=== PATIENT | male | born 1935 | race Caucasian/White ===

== ENCOUNTER 2017-02-26 15:10 | Inpatient (IN) | payer OTHER, MEDICARE ==
[~2017-02-26] VITALS: Ht 172.7 cm; Wt 87.0 kg
[~2017-02-26 15:10] MED LIST: ASPI325T PO; TAB-TAB PO
[2017-02-26 15:12] VITALS: BP 126/60; PULSE 71; RESP 16; TEMP 97.7; O2SAT 94
[2017-02-26] MEDS ORDERED: HALOPERIDOL LACTATE 5 MG/ML AMP IM ONE (15:45)
[2017-02-26] MEDS ORDERED: LORazepam 2 MG/ML VIAL IM ONE (15:45)
[2017-02-26] MEDS ORDERED: SODIUM CHLORIDE 0.9% FLUSH 10 ML FLUSH IV FLUSH PRN (16:00)
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
[2017-02-26 16:32] VITALS: O2SAT 98
[2017-02-26 16:42] LABS: AUTOMATED NEUTROPHIL # 4.7 TH/MM3 (1.8-7.7); BASOPHIL # 0.1 TH/MM3 (0-0.2); BASOPHIL % 1.1 % (0.0-2.0); EOSINOPHIL # 0.8 TH/MM3 (0-0.4); EOSINOPHIL % 10.4 % (0.0-4.0); HEMO FLAGS DIFF FINAL; LYMPH % 18.3 % (9.0-44.0); LYMPHOCYTE # 1.4 TH/MM3 (1.0-4.8); MEAN CELL VOLUME 91.7 FL (80.0-100.0); MEAN CORPUSCULAR HEMOGLOBIN 30.7 PG (27.0-34.0); MEAN CORPUSCULAR HGB CONC 33.5 % (32.0-36.0); MONO % 7.6 % (0.0-8.0); NEUT % 62.6 % (16.0-70.0); PLATELET COUNT 179 TH/MM3 (150-450); RED BLOOD COUNT 4.47 MIL/MM3 (4.50-5.90); RED CELL DISTRIBUTION WIDTH 13.2 % (11.6-17.2); WHITE BLOOD COUNT 7.6 TH/MM3 (4.0-11.0)
[2017-02-26 16:50] LABS: APTT (PATIENT) 28.9 SEC (24.3-30.1); PROTHROMBIN TIME - PATIENT 10.3 SEC (9.8-11.6)
[2017-02-26 17:04] LABS: ALKALINE PHOSPHATASE 70 U/L (45-117); ALT (GPT) 28 U/L (12-78); ANION GAP 4 MEQ/L (5-15); AST (GOT) 26 U/L (15-37); BICARBONATE 28.7 MEQ/L (21.0-32.0); BLOOD UREA NITROGEN 25 MG/DL (7-18); CHLORIDE 108 MEQ/L (98-107); GLOMERULAR FILTRATION RATE 44 ML/MIN (>89); POTASSIUM 4.1 MEQ/L (3.5-5.1); SODIUM (NA) 141 MEQ/L (136-145); TOTAL BILIRUBIN ADULT 0.6 MG/DL (0.2-1.0)
[2017-02-26 17:32] LABS: CREATINE KINASE 84 U/L (39-308)
[2017-02-26] MEDS ORDERED: SODIUM CHLORID 0.9% 500 ML INJ 500 ML IV ONE (17:45)
--- NOTE | 2017-02-26 18:12 | RADRPT ---
EXAM DATE/TIME: 02/26/2017 17:53 [facility] COMPARISON: No previous studies available for comparison. INDICATIONS : Altered mental status. RADIATION DOSE: 52.13 CTDIvol (mGy) MEDICAL HISTORY : Non-responsive. SURGICAL HISTORY : Non-responsive. ENCOUNTER: Initial ACUITY: 1 day PAIN SCALE: Non-responsive LOCATION: cranial TECHNIQUE: Multiple contiguous axial images were obtained of the head. Using automated exposure control and adj ustment of the mA and/or kV according to patient size, radiation dose was kept as low as reasonably a chievable to obtain optimal diagnostic quality images. DICOM format image data is available electro nically for review and comparison. FINDINGS: CEREBRUM: The ventricles are normal for age with moderate atrophic change with sulcal and ventricular prominenc e. No evidence of midline shift, mass lesion, hemorrhage or acute infarction. No extra-axial fluid c ollections are seen. POSTERIOR FOSSA: The cerebellum and brainstem are intact. The 4th ventricle is midline. The cerebellopontine angle i s unremarkable. EXTRACRANIAL: The visualized portion of the orbits is intact. There is retention cyst in the right maxillary sinus. There is mucosal thickening in the ethmoidal air cells and left frontal sinus. SKULL: The calvaria is intact. No evidence of skull fracture. CONCLUSION: 1. Moderate atrophic change with no evidence of hemorrhage or mass effect. 2. Mild mucosal thickening in the paranasal sinuses. Inocente Tapia MD on February 26, 2017 at 18:09 Board Certified Radiologist. This report was verified electronically.
[2017-02-26 18:15] LABS: BLOOD, URINE NEG (NEG); COMMENT (UR) CULT NOT INDICATED; CULTURE IF INDICATED CULT NOT INDICATED; GLUCOSE,URINE NEG (NEG); KETONE, URINE NEG (NEG); MUCUS URINE FEW /lpf (OCC); NITRITE,URINE NEG (NEG); PH, URINE 5.5 (5.0-8.5); URINE COLOR YELLOW (YELLW/STRAW)
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
[2017-02-26] MEDS ORDERED: ALUMINUM/MAGNESIUM/SIMETH 30 ML CUP PO PRN (22:45)
[2017-02-26] MEDS ORDERED: MAGNESIUM HYDROXIDE SUSP 30 ML CUP PO PRN (22:45)
[2017-02-26 23:07] VITALS: BP 137/78
[2017-02-26 23:35] VITALS: BP 130/78; PULSE 72; RESP 16; TEMP 98.4; O2SAT 94
[2017-02-27 06:17] VITALS: BP 153/78; PULSE 71; RESP 15; TEMP 98.4; O2SAT 95
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
[2017-02-27] MEDS ORDERED: HALOPERIDOL 2 MG TAB PO PRN (11:15)
[2017-02-27] MEDS ORDERED: diphenhydrAMINE HCL 50 MG/ML VIAL IM PRN (11:15)
[2017-02-27] MEDS ORDERED: diphenhydrAMINE HCL 25 MG CAP PO PRN (11:15)
[2017-02-27] MEDS ORDERED: HALOPERIDOL LACTATE 5 MG/ML AMP IM PRN (11:15)
[2017-02-27] MEDS ORDERED: CLON0.5T PO (11:48)
[2017-02-27] MEDS ORDERED: OMEP20TA93 PO (11:48)
[2017-02-27] MEDS ORDERED: MEMA28CA PO (11:48)
[2017-02-27] MEDS ORDERED: ATOR40TA16 PO (11:48)
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
--- NOTE | 2017-02-27 12:16 | PD.PSY.CON ---
Provisional Diagnosis Admission Date Feb 26, 2017 at 22:39 [place] I. 1. 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 Deferred History of Present Illness Service Psychiatry Consult Requested By Dr. Brown Reason for Consult Second opinion Primary Care Physician Roberto Alatorre MD HPI Abdiel Rodrigues is 81 year-old male with a history of dementia who was brought to the emergency department by his family out of concern for wandering behavior and aggression. He was seen by psychiatric nurse practitioner who recommended admission to inpatient psychiatric unit. Reviewing the EMR, I see no prior psychiatric contact within our system.Patient seen and examined. Chart reviewed. Case discussed with nursing staff. On my exam, patient presents as quite confused, MMSE 4/30. He is disheveled and malodorous. Affect is blunted. He is hypoverbal with paucity of thought. He tells me that he is looking for his clothes. "I don't know what happened here. I was supposed to go to [place], but they took my clothes off." He denies issues with mood, nor can I elicit any depressive of hypomanic/manic symptoms. He denies AVH. Besides some paranoia, I can elicit no delusional material. Psychiatric interview is limited because of the patient's cognitive impairment. He offers no physical complaints.I am unable to obtain any meaningful past psychiatric, family or chemical dependency history from the patient as a consequence of his cognitive impairment. He does provide some social history, namely that he is originally from [place] and moved to the [place] "a long time ago." He is able to tell me that he is . 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 She reports that the patient has had a diagnosis of dementia for the past 2 years. He has seen a neurologist in [place] for evaluation of this problem but has been nonadherent with the medications prescribed to him. Recent problematic behaviors include wandering and even driving. A silver alert had to be called prior to patient being brought to the emergency department because the patient had driven off and could not be located. also notes that the patient has been increasingly aggressive with her in the home, trying to strike her. He also has been refusing to bathe. Family is looking for placement. Patient gets his medications filled at the [facility] on [address] in [place], and I have asked the nurse to obtain an up-to-date medication list. I have discussed the risks and benefits of ongoing inpatient psychiatric hospitalization with the patient's , who is his presumptive healthcare surrogate. I have highlighted the potential risks of hospitalization in this patient including fall, infection and other misadventure. I have discussed a planned course of treatment including initiation of a medication for the management of behavioral disturbance in the setting of his dementia. As this will likely be an atypical antipsychotic, I have reviewed with her the risks and benefits of this class of medications, highlighting the FDA black box warning for increased risk of in the demented elderly. She thanks me for the call. The patient is a 81 years old man with history of dementia, consulted to me for second opinion. Patient was found in his room, calm, superficially cooperative. Patient says that he was brought here because he wanted to go to [place] to visit his family. He says that he was in the airport trying to fly to [place]. Patient doesn't know the reason of hospitalization, he doesn't know where he is, he is completely disoriented, but reports good mood, denies depression, denies suicidal and homicidal ideation. No agitation or aggressive behavior reported or observed. Review of Systems Except as stated in HPI: all other systems reviewed are Neg Past Family Social History Coded Allergies: codeine (Unverified Allergy, Severe, nausea and vomiting, 02/26/17) Sulfa (Sulfonamide Antibiotics) (Unverified Allergy, Mild, Anaphylaxis, ) penicillin G (Unverified Allergy, Mild, Anaphylaxis, 02/26/17) Reported Medications Clonazepam (Clonazepam) 0.5 Mg Tab, 0.5 MG PO BID, #60 TAB 0 Refills 02/27/17 Atorvastatin (Atorvastatin) 40 Mg Tab, 40 MG PO HS for Cholesterol Management, # 30 TAB 0 Refills 02/27/17 Memantine Er (Namenda Xr) 28 Mg Caper, 28 MG PO DAILY for Alzheimer Disease, # 30 CAP 0 Refills 02/27/17 Omeprazole (Omeprazole) 20 Mg Tab, 20 MG PO DAILY, #30 TAB 0 Refills 02/27/17 Current Medications Medications (Trade) Dose Ordered Sig/Conor Route Start Time Stop Time Status Last Admin (NS Flush) 2 ml UNSCH PRN IV FLUSH 02/26/17 16:00 (Tylenol) 650 mg Q4H PRN PO 02/26/17 22:45 (Milk Of Magnesia Liq) 30 ml DAILY PRN PO 02/26/17 22:45 (Mag-Al Plus Susp Liq) 30 ml Q6H PRN PO 02/26/17 22:45 (Haldol Inj) 2 mg Q8H PRN IM 02/27/17 11:15 (Haldol) 2 mg Q8H PRN PO 02/27/17 11:15 (Benadryl) 25 mg Q6H PRN PO 02/27/17 11:15 (Benadryl Inj) 25 mg Q6H PRN IM 02/27/17 11:15 (Melatonin) 5 mg HS PRN PO 02/27/17 21:00 Patient's Strengths (min. 2) In a monitored setting. Supportive . Physical Exam Vital Signs Vital Signs Date Time Temp Pulse Resp B/P (MAP) Pulse Ox O2 Delivery O2 Flow Rate FiO2 02/27/17 06:17 98.4 71 15 153/78 (103) 95 02/26/17 16:32 Room Air I/O 02/27/17 02/27/17 02/28/17 08:00 16:00 00:00 Intake Total 240 ml Balance 240 ml Lab Results Test 02/26/17 16:10 02/26/17 17:30 White Blood Count 7.6 TH/MM3 Red Blood Count 4.47 MIL/MM3 Hemoglobin 13.7 GM/DL Hematocrit 41.0 % Mean Corpuscular Volume 91.7 FL Mean Corpuscular Hemoglobin 30.7 PG Mean Corpuscular Hemoglobin Concent 33.5 % Red Cell Distribution Width 13.2 % Platelet Count 179 TH/MM3 Mean Platelet Volume 6.9 FL Neutrophils (%) (Auto) 62.6 % Lymphocytes (%) (Auto) 18.3 % Monocytes (%) (Auto) 7.6 % Eosinophils (%) (Auto) 10.4 % Basophils (%) (Auto) 1.1 % Neutrophils # (Auto) 4.7 TH/MM3 Lymphocytes # (Auto) 1.4 TH/MM3 Monocytes # (Auto) 0.6 TH/MM3 Eosinophils # (Auto) 0.8 TH/MM3 Basophils # (Auto) 0.1 TH/MM3 CBC Comment DIFF FINAL Differential Comment Prothrombin Time 10.3 SEC Prothromb Time International Ratio 1.0 RATIO Activated Partial Thromboplast Time 28.9 SEC Blood Urea Nitrogen 25 MG/DL Creatinine 1.52 MG/DL Random Glucose 81 MG/DL Total Protein 7.7 GM/DL Albumin 3.7 GM/DL Calcium Level 8.5 MG/DL Alkaline Phosphatase 70 U/L Aspartate Amino Transf (AST/SGOT) 26 U/L Alanine Aminotransferase (ALT/SGPT) 28 U/L Total Bilirubin 0.6 MG/DL Sodium Level 141 MEQ/L Potassium Level 4.1 MEQ/L Chloride Level 108 MEQ/L Carbon Dioxide Level 28.7 MEQ/L Anion Gap 4 MEQ/L Estimat Glomerular Filtration Rate 44 ML/MIN Ammonia 32 MCMOL/L Total Creatine Kinase 84 U/L Troponin I LESS THAN 0.02 NG/ML Urine Color YELLOW Urine Turbidity CLEAR Urine pH 5.5 Urine Specific Compton 1.029 Urine Protein TRACE mg/dL Urine Glucose (UA) NEG mg/dL Urine Ketones NEG mg/dL Urine Occult Blood NEG Urine Nitrite NEG Urine Bilirubin NEG Urine Urobilinogen LESS THAN 2.0 MG/DL Urine Leukocyte Esterase NEG Urine RBC 1 /hpf Urine WBC 1 /hpf Urine Mucus FEW /lpf Microscopic Urinalysis Comment CULT NOT INDICATED Mental Status Examination Appearance: Disheveled, Malodorous Consciousness: Alert Orientation: Person Motor Activity: Other (no motor abnormalities noted) Speech: Slow, Other (hypoverbal) Language: Adequate Fund of Knowledge: Inadequate Attention and Concentration: Inadequate Memory: Impaired Mood: Other (mildly dysphoric) Affect: Blunt Thought Process & Associations: Other (slowed) Thought Content: Other (paucity of thought) Hallucination Type: None Delusion Type: Paranoid Suicidal Ideation: No (unreliable to contract for safety) Homicidal Ideation: No (unreliable to contract for safety) Insight: Poor Judgment: Poor Assessment & Plan Problem List: (1) Dementia ICD Codes: F03.90 - Unspecified dementia without behavioral disturbance Assessment & Plan: I have seen and examined this patient, reviewed the documentation, I completely agree and concur with Dr. Brown assessment and plan. Assessment & Plan Estimated LOS: days Request HC Surrog/Guard Advoc?: Yes Problem Qualifiers (1) Dementia: Qualified Codes: G30.8 - Other Alzheimer's disease; F02.81 - Dementia in other diseases classified elsewhere with behavioral disturbance Ru Saul MD Feb 27, 2017 12:16
--- NOTE | 2017-02-27 17:00 | EKG ---
Date Performed: 02/26/2017 Time Performed: 16:01:42 PTAGE: 81 years EKG: Sinus rhythm Since previous tracing, no significant change noted NORMAL ECG PREVIOUS TRACING : 05/16/2011 18.01 DOCTOR: Charity Gabriel Interpretating Date/Time 02/27/2017 16:58:14
[2017-02-27] MEDS: QUEtiapine FUMARATE 25 MG TAB PO SCH ×2 (21:00→22:02)
[2017-02-27] MEDS: ATORVASTATIN 40 MG TAB PO SCH ×3 (21:00→22:03)
[2017-02-27] MEDS ORDERED: MELATONIN 5 MG TAB PO PRN (21:00)
[2017-02-28 06:08] VITALS: BP 132/68; PULSE 71; RESP 17; TEMP 97.3; O2SAT 92
--- NOTE | 2017-02-28 07:51 | HHI.PR ---
Subjective Remarks In the chair still confused. asking for his shoes says he needs to leave, he will go in [place]. No fever or chills. He is not agitated, he doesn't appear in acute distress. He is breathing well. Deneis any chest pain. Refusing labs. Objective Vitals Vital Signs Date Time Temp Pulse Resp B/P (MAP) Pulse Ox O2 Delivery O2 Flow Rate FiO2 02/28/17 06:08 97.3 71 17 132/68 (89) 92 I/O 02/27/17 02/27/17 02/27/17 02/28/17 02/28/17 02/28/17 06:59 14:59 22:59 06:59 14:59 22:59 Intake Total 0 ml 480 ml 1320 ml Balance 0 ml 480 ml 1320 ml Intake Oral 0 ml 480 ml 1320 ml # Voids 1 2 1 Result Diagram: 02/26/17 1610 02/26/17 1610 Imaging Last Impressions Head CT 02/26/17 1546 Signed Impressions: Service Date/Time: January 17:53 - CONCLUSION: 1. Moderate atrophic change with no evidence of hemorrhage or mass effect. 2. Mild mucosal thickening in the paranasal sinuses. Inocente Tapia MD Objective Remarks GENERAL: This is a pleasantly confused 81-year-old male, well-nourished, well- developed patient, in no apparent distress. SKIN: No rashes, ecchymoses or lesions. Cool and dry. HEAD: Atraumatic. Normocephalic. No temporal or scalp tenderness. EYES: Pupils equal round and reactive. Extraocular motions intact. No scleral icterus. No injection or drainage. ENT: Nose without bleeding, purulent drainage or septal hematoma. Throat without erythema, tonsillar hypertrophy or exudate. Uvula midline. Airway patent. NECK: Trachea midline. No JVD or lymphadenopathy. Supple, nontender, no meningeal signs. CARDIOVASCULAR: Regular rate and rhythm without murmurs, gallops, or rubs. RESPIRATORY: Clear to auscultation. Breath sounds equal bilaterally. No wheezes , rales, or rhonchi. GASTROINTESTINAL: Abdomen soft, non-tender, nondistended. No hepato-splenomegaly , or palpable masses. No guarding. MUSCULOSKELETAL: Extremities without clubbing, cyanosis, or edema. No joint tenderness, effusion, or edema noted. No calf tenderness. Negative Homans sign bilaterally. NEUROLOGICAL: Awake and alert. Cranial nerves II through XII intact. Motor and sensory grossly within normal limits. Five out of 5 muscle strength in all muscle groups. Normal speech. A/P Assessment and Plan 81-year-old male who was a silver alert was found at the [place] airport presented to the emergency department with his son and for worsening progression, wandering. The patient is alert and oriented to self only. Patient is admitted to inpatient psych unit for further management Dementia with behavioral disturbance. Management per psych Mild JOLIE BUN 25, creatinine 1.5. CK is 84. Patient received normal saline 500 bolus in the ED . Monitor kidney function. Encourage PO hydration. Monitor kidney indices. H/o CAD with stent placed? Patient denies having any chest pain at this time. EKG shows SR, HR 66, no acute ST changes. CBC shows no acute abnormality. Troponin is less than 0.02. Ammonia is 32. Coags are unremarkable. UA is negative for acute infection. CT of the brain shows moderate atrophic change with no evidence of hemorrhage or mass effect; Mild mucosal thickening in the paranasal sinuses. Restart home medications DVT prophylaxis patient is ambulating Thank you for this consultation we'll follow along Discussed Condition With Patient, nurse Angelina Hazel MD Feb 28, 2017 07:51
[2017-02-28] MEDS: QUEtiapine FUMARATE 25 MG TAB PO SCH ×3 (08:17→20:22)
[2017-02-28] MEDS: PANTOPRAZOLE SOD 20 MG DELAYED RELEASE TAB PO SCH (08:17)
[2017-02-28] MEDS ORDERED: MEMANTINE HCL 10 MG TAB PO SCH (09:00)
[2017-02-28] MEDS ORDERED: NON-FORMULARY DRUG (Omeprazole 20 MG) PO SCH (09:00)
--- NOTE | 2017-02-28 16:22 | HHI.PYPN ---
Subjective Chief Complaint: Dementia with behavioral disturbance Remarks Pt seen and discussed with staff. He has been exit seeking on unit. He has not been aggressive today on unit. He is very paranoid and suspicious about medications but did take them. No SI/HI Mental Status Examination Appearance: Disheveled, Malodorous Consciousness: Alert Orientation: Person Motor Activity: Other (no motor abnormalities noted) Speech: Slow, Other (hypoverbal) Language: Adequate Fund of Knowledge: Inadequate Attention and Concentration: Inadequate Memory: Impaired Mood: Other (mildly dysphoric) Affect: Blunt Thought Process & Associations: Other (slowed) Thought Content: Other (paucity of thought) Hallucination Type: None Delusion Type: Paranoid Suicidal Ideation: No Homicidal Ideation: No Insight: Poor Judgment: Poor Results Vitals/IOs Vital Signs Date Time Temp Pulse Resp B/P (MAP) Pulse Ox O2 Delivery O2 Flow Rate FiO2 02/28/17 06:08 97.3 71 17 132/68 (89) 92 02/26/17 16:32 Room Air Intake and Output 02/28/17 02/28/17 03/01/17 08:00 16:00 00:00 Intake Total 480 ml Balance 480 ml Assessment & Plan Problem List: (1) Dementia ICD Codes: F03.90 - Unspecified dementia without behavioral disturbance Assessment & Plan continue current tx plan. Estimated LOS: days Justification for Cont. Inpt. monitoring for safety Request HC Surrog/Guard Advoc?: Yes Problem Qualifiers (1) Dementia: Qualified Codes: G30.8 - Other Alzheimer's disease; F02.81 - Dementia in other diseases classified elsewhere with behavioral disturbance Adwoa Nicole MD Feb 28, 2017 16:22
[2017-02-28 18:00] VITALS: BP 109/59; PULSE 67; RESP 16; TEMP 98.6; O2SAT 96
[2017-02-28] MEDS: ATORVASTATIN 40 MG TAB PO SCH ×2 (20:19→20:22)
[2017-03-01 05:55] VITALS: BP 108/57; PULSE 70; RESP 17; TEMP 98.6; O2SAT 92
--- NOTE | 2017-03-01 08:25 | HHI.PR ---
Subjective Remarks Patien tin the hallways says he is going to [place]. Deneis chest apin or sob. Appears in nad. Anxious at times. No fever ro chills.No n/v/d/c. Ate breakfast Objective Vitals Vital Signs Date Time Temp Pulse Resp B/P (MAP) Pulse Ox O2 Delivery O2 Flow Rate FiO2 03/01/17 05:55 98.6 70 17 108/57 (74) 92 02/28/17 18:00 98.6 67 16 109/59 (76) 96 I/O 02/28/17 02/28/17 02/28/17 03/01/17 03/01/17 03/01/17 07:00 15:00 23:00 07:00 15:00 23:00 Intake Total 480 ml 360 ml Balance 480 ml 360 ml Intake Oral 480 ml 360 ml # Voids 1 1 1 Result Diagram: 02/26/17 1610 02/26/17 1610 Objective Remarks GENERAL: This is a pleasantly confused 81-year-old male, well-nourished, well- developed patient, in no apparent distress. SKIN: No rashes, ecchymoses or lesions. Cool and dry. HEAD: Atraumatic. Normocephalic. No temporal or scalp tenderness. EYES: Pupils equal round and reactive. Extraocular motions intact. No scleral icterus. No injection or drainage. ENT: Nose without bleeding, purulent drainage or septal hematoma. Throat without erythema, tonsillar hypertrophy or exudate. Uvula midline. Airway patent. NECK: Trachea midline. No JVD or lymphadenopathy. Supple, nontender, no meningeal signs. CARDIOVASCULAR: Regular rate and rhythm without murmurs, gallops, or rubs. RESPIRATORY: Clear to auscultation. Breath sounds equal bilaterally. No wheezes , rales, or rhonchi. GASTROINTESTINAL: Abdomen soft, non-tender, nondistended. No hepato-splenomegaly , or palpable masses. No guarding. MUSCULOSKELETAL: Extremities without clubbing, cyanosis, or edema. No joint tenderness, effusion, or edema noted. No calf tenderness. Negative Homans sign bilaterally. NEUROLOGICAL: Awake and alert. Cranial nerves II through XII intact. Motor and sensory grossly within normal limits. Five out of 5 muscle strength in all muscle groups. Normal speech. A/P Assessment and Plan 81-year-old male who was a silver alert was found at the [place] airport presented to the emergency department with his son and for worsening progression, wandering. The patient is alert and oriented to self only. Patient is admitted to inpatient psych unit for further management Dementia with behavioral disturbance. Management per psych Mild JOLIE BUN 25, creatinine 1.5. CK is 84. Patient received normal saline 500 bolus in the ED . Monitor kidney function. Encourage PO hydration. Monitor kidney indices. H/o CAD with stent placed? Patient denies having any chest pain at this time. EKG shows SR, HR 66, no acute ST changes. CBC shows no acute abnormality. Troponin is less than 0.02. Ammonia is 32. Coags are unremarkable. UA is negative for acute infection. CT of the brain shows moderate atrophic change with no evidence of hemorrhage or mass effect; Mild mucosal thickening in the paranasal sinuses. Restart home medications DVT prophylaxis patient is ambulating Thank you for this consultation we'll follow along Discussed Condition With Patient, nurse Angelina Hazel MD Mar 01, 2017 08:25
[2017-03-01] MEDS: PANTOPRAZOLE SOD 20 MG DELAYED RELEASE TAB PO SCH (09:00)
[2017-03-01] MEDS: QUEtiapine FUMARATE 25 MG TAB PO SCH ×2 (09:00→20:51)
--- NOTE | 2017-03-01 14:31 | HHI.PYPN ---
Subjective Chief Complaint: Dementia with behavioral disturbance Remarks Pt seen and discussed with staff. He continues to exit seek. No agitation or aggression. He is paranoid and refused medications and labs today. No SI/HI Mental Status Examination Appearance: Disheveled, Malodorous Consciousness: Alert Orientation: Person Motor Activity: Other (no motor abnormalities noted) Speech: Slow, Other (hypoverbal) Language: Adequate Fund of Knowledge: Inadequate Attention and Concentration: Inadequate Memory: Impaired Mood: Other (mildly dysphoric) Affect: Blunt Thought Process & Associations: Other (slowed) Thought Content: Other (paucity of thought) Hallucination Type: None Delusion Type: Paranoid Suicidal Ideation: No Homicidal Ideation: No Insight: Poor Judgment: Poor Results Vitals/IOs Vital Signs Date Time Temp Pulse Resp B/P (MAP) Pulse Ox O2 Delivery O2 Flow Rate FiO2 03/01/17 05:55 98.6 70 17 108/57 (74) 92 02/26/17 16:32 Room Air Assessment & Plan Problem List: (1) Dementia ICD Codes: F03.90 - Unspecified dementia without behavioral disturbance Assessment & Plan Continue current tx plan Estimated LOS: days Justification for Cont. Inpt. agitation Request HC Surrog/Guard Advoc?: Yes Problem Qualifiers (1) Dementia: Qualified Codes: G30.8 - Other Alzheimer's disease; F02.81 - Dementia in other diseases classified elsewhere with behavioral disturbance Adwoa Nicole MD Mar 01, 2017 14:31
[2017-03-01 18:00] VITALS: BP 126/71; PULSE 66; RESP 16; TEMP 97.6; O2SAT 96
[2017-03-01] MEDS: ATORVASTATIN 40 MG TAB PO SCH (20:51)
[2017-03-02 06:28] VITALS: BP 140/71; PULSE 64; RESP 17; TEMP 98.9; O2SAT 95
[2017-03-02] MEDS: PANTOPRAZOLE SOD 20 MG DELAYED RELEASE TAB PO SCH (08:25)
[2017-03-02] MEDS: ACETAMINOPHEN 325 MG TAB PO PRN (08:25)
[2017-03-02] MEDS: QUEtiapine FUMARATE 25 MG TAB PO SCH ×2 (08:26→20:42)
[2017-03-02] MEDS ORDERED: IBUPROFEN 200 MG TAB PO PRN (10:15)
--- NOTE | 2017-03-02 10:18 | HHI.PR ---
Subjective Remarks omplaints of right great toe pain. patient doesn't remember if he has gout. Toe is red and painful. No fever or chills. No n/v/d/c. Can walk. No chest pain or sob. Objective Vitals Vital Signs Date Time Temp Pulse Resp B/P (MAP) Pulse Ox O2 Delivery O2 Flow Rate FiO2 03/02/17 06:28 98.9 64 17 140/71 (94) 95 03/01/17 18:00 97.6 66 16 126/71 (89) 96 I/O 03/01/17 03/01/17 03/01/17 03/02/17 03/02/17 03/02/17 07:00 15:00 23:00 07:00 15:00 23:00 # Voids 1 Result Diagram: 02/26/17 1610 02/26/17 1610 Objective Remarks GENERAL: This is a pleasantly confused 81-year-old male, well-nourished, well- developed patient, in no apparent distress. SKIN: No rashes, ecchymoses or lesions. Cool and dry. HEAD: Atraumatic. Normocephalic. No temporal or scalp tenderness. EYES: Pupils equal round and reactive. Extraocular motions intact. No scleral icterus. No injection or drainage. ENT: Nose without bleeding, purulent drainage or septal hematoma. Throat without erythema, tonsillar hypertrophy or exudate. Uvula midline. Airway patent. NECK: Trachea midline. No JVD or lymphadenopathy. Supple, nontender, no meningeal signs. CARDIOVASCULAR: Regular rate and rhythm without murmurs, gallops, or rubs. RESPIRATORY: Clear to auscultation. Breath sounds equal bilaterally. No wheezes , rales, or rhonchi. GASTROINTESTINAL: Abdomen soft, non-tender, nondistended. No hepato-splenomegaly , or palpable masses. No guarding. MUSCULOSKELETAL: Right great toe with redness and extreme pain on palpation. Extremities without clubbing, cyanosis, or edema. No joint tenderness, effusion , or edema noted. No calf tenderness. Negative Homans sign bilaterally. NEUROLOGICAL: Awake and alert. Cranial nerves II through XII intact. Motor and sensory grossly within normal limits. Five out of 5 muscle strength in all muscle groups. Normal speech. A/P Assessment and Plan 81-year-old male who was a silver alert was found at the [place] airport presented to the emergency department with his son and for worsening progression, wandering. The patient is alert and oriented to self only. Patient is admitted to inpatient psych unit for further management Dementia with behavioral disturbance. Management per psych Mild JOLIE BUN 25, creatinine 1.5. CK is 84. Patient received normal saline 500 bolus in the ED . Monitor kidney function. Encourage PO hydration. Monitor kidney indices. H/o CAD with stent placed? Patient denies having any chest pain at this time. EKG shows SR, HR 66, no acute ST changes. CBC shows no acute abnormality. Troponin is less than 0.02. Ammonia is 32. Coags are unremarkable. UA is negative for acute infection. CT of the brain shows moderate atrophic change with no evidence of hemorrhage or mass effect; Mild mucosal thickening in the paranasal sinuses. Restart home medications Right great toe pain and redness, patient doesn't remember if had traumatic event or if h./o gout. Will check BMP and also uric acid. Patient however is refusing labs,. Encourage PO hydration. Start ibuprofen and also colchicine as most likely gout. Will fo X ray as well. DVT prophylaxis patient is ambulating Thank you for this consultation we'll follow along Discussed Condition With Patient, nurse Angelina Hazel MD Mar 02, 2017 10:18
[2017-03-02] MEDS: COLCHICINE 0.6 MG TAB PO ONE ×2 (10:25→11:08)
[2017-03-02] MEDS: IBUPROFEN 400 MG TAB PO ONE ×2 (10:28→11:08)
--- NOTE | 2017-03-02 11:34 | HHI.PYPN ---
Subjective Chief Complaint: Dementia with behavioral disturbance Remarks Patient seen and examined with nurse. Chart reviewed. Case discussed with nursing staff reports the patient had been refusing his Seroquel although he did accept it this morning and yesterday evening. He is noted to be exit seeking. He is noted to be paranoid, and following my departure from the unit nurse calls to let me know that patient has been trying to get plastic knives off of other patient's meal trays. On my exam, patient is calm but remains quite confused. He is oriented to person only. No SI or HI. He denies side effects from medications. He complains of pain in his foot, and I see Dr. Hazel is working him up for possible gout. No other physical complaints. Review of Systems ROS Limitations: Poor Historian Except as stated in HPI: all other systems reviewed are Neg Mental Status Examination Appearance: Disheveled Consciousness: Alert Orientation: Person Motor Activity: Other (no abnormal motor movements noted) Speech: Slow Language: Adequate Fund of Knowledge: Inadequate Attention and Concentration: Inadequate Memory: Impaired (remains impaired on clinical exam) Mood: Other (presently calm) Affect: Blunt Thought Process & Associations: Other (slowed) Thought Content: Other (ongoing paucity of thought) Hallucination Type: None Delusion Type: Paranoid Suicidal Ideation: No (unreliable to contract for safety) Homicidal Ideation: No (unreliable to contract for safety) Insight: Poor Judgment: Poor Results Labs Item Value Date Time White Blood Count 8.5 TH/MM3 03/02/17 1122 Hemoglobin 13.8 GM/DL 03/02/17 1122 Platelet Count 169 TH/MM3 03/02/17 1122 Sodium Level 138 MEQ/L 03/02/17 1122 Potassium Level 4.1 MEQ/L 03/02/17 1122 Chloride Level 106 MEQ/L 03/02/17 1122 Carbon Dioxide Level 25.5 MEQ/L 03/02/17 1122 Blood Urea Nitrogen 26 MG/DL H 03/02/17 1122 Creatinine 1.43 MG/DL H 03/02/17 1122 Estimat Glomerular Filtration Rate 48 ML/MIN L 03/02/17 1122 Random Glucose 80 MG/DL 03/02/17 1122 Vitamin B12 Level 267 PG/ML 03/02/17 1122 Labs reviewed. Vitamin D level pending. Last Impressions Toe X-Ray 03/02/17 0000 Signed Impressions: Service Date/Time: Thursday, March 02, 2017 10:34 - CONCLUSION: 1. No plain film findings of osteomyelitis. If there is necessity for further evaluation contrast-enhanced MRI is recommended. 2. Gout could also be considered Luis Fernando Gonzalez MD Head CT 02/26/17 1546 Signed Impressions: Service Date/Time: January 17:53 - CONCLUSION: 1. Moderate atrophic change with no evidence of hemorrhage or mass effect. 2. Mild mucosal thickening in the paranasal sinuses. Inocente Tapia MD Vitals/IOs Vital Signs Date Time Temp Pulse Resp B/P (MAP) Pulse Ox O2 Delivery O2 Flow Rate FiO2 03/02/17 06:28 98.9 64 17 140/71 (94) 95 02/26/17 16:32 Room Air Assessment & Plan Problem List: (1) Dementia ICD Codes: F03.90 - Unspecified dementia without behavioral disturbance Assessment & Plan Titrate Seroquel to 37.5mg BID to target paranoia in setting of dementia. Thorazine IM backup available, although patient has not required this since 02/27. Transfer to high-acuity unit for closer monitoring in light of the knife- seeking behavior noted by staff. I have ordered a patient safety tray and have instructed staff to perform a thorough check of patient's person for contraband before he is transferred to high acuity unit. Violent/assaultive precautions and escape precautions ordered. Hospitalist input noted and appreciated. Continue to monitor on an inpatient unit. Continue other medications and care as ordered. Justification for Cont. Inpt. Concern for impairment in safety. Impairment in reality construction. Med changes. High risk for decompensation in less restrictive environment. Discharge Planning Placement once stable. Request HC Surrog/Guard Advoc?: Yes Problem Qualifiers (1) Dementia: Qualified Codes: G30.8 - Other Alzheimer's disease; F02.81 - Dementia in other diseases classified elsewhere with behavioral disturbance Luis Fernando Brown MD Mar 02, 2017 11:34
[2017-03-02 11:42] LABS: AUTOMATED NEUTROPHIL # 5.8 TH/MM3 (1.8-7.7); BASOPHIL # 0.1 TH/MM3 (0-0.2); BASOPHIL % 0.9 % (0.0-2.0); EOSINOPHIL # 0.5 TH/MM3 (0-0.4); EOSINOPHIL % 6.1 % (0.0-4.0); HEMO FLAGS DIFF FINAL; LYMPH % 13.7 % (9.0-44.0); LYMPHOCYTE # 1.2 TH/MM3 (1.0-4.8); MEAN CELL VOLUME 90.7 FL (80.0-100.0); MEAN CORPUSCULAR HEMOGLOBIN 31.3 PG (27.0-34.0); MEAN CORPUSCULAR HGB CONC 34.6 % (32.0-36.0); MONO % 10.6 % (0.0-8.0); NEUT % 68.7 % (16.0-70.0); PLATELET COUNT 169 TH/MM3 (150-450); RED BLOOD COUNT 4.41 MIL/MM3 (4.50-5.90); WHITE BLOOD COUNT 8.5 TH/MM3 (4.0-11.0)
[2017-03-02 12:04] LABS: ANION GAP 7 MEQ/L (5-15); BICARBONATE 25.5 MEQ/L (21.0-32.0); BLOOD UREA NITROGEN 26 MG/DL (7-18); CHLORIDE 106 MEQ/L (98-107); GLOMERULAR FILTRATION RATE 48 ML/MIN (>89); POTASSIUM 4.1 MEQ/L (3.5-5.1); SODIUM (NA) 138 MEQ/L (136-145)
--- NOTE | 2017-03-02 12:08 | RADRPT ---
EXAM DATE/TIME: 03/02/2017 10:34 [facility] COMPARISON: No previous studies available for comparison. INDICATIONS : Patient states left foot, great toe redness. MEDICAL HISTORY : None. SURGICAL HISTORY : None. ENCOUNTER: Initial ACUITY: 1 day PAIN SCORE: 0/10 LOCATION: Left Foot, Great Toe FINDINGS: Soft tissue swelling is present in the great toe. There is no bony destruction or periosteal reaction to suggest osteomyelitis. No tophi are identified no gout would also be in differential diagnosis. CONCLUSION: 1. No plain film findings of osteomyelitis. If there is necessity for further evaluation contrast-enh anced MRI is recommended. 2. Gout could also be considered Luis Fernando Gonzalez MD on March 02, 2017 at 12:04 Board Certified Radiologist. This report was verified electronically.
[2017-03-02 12:11] LABS: HDL CHOLESTEROL 41.1 MG/DL (40.0-60.0); LDL CHOLESTEROL 71 MG/DL (0-99)
[2017-03-02 12:55] LABS: HEMOGLOBIN A1a 1.2 %; HEMOGLOBIN A1b 1.3 %; HEMOGLOBIN Ao 86.2 %; HEMOGLOBIN P3 3.8 %
[2017-03-02] MEDS ORDERED: PILL SPLITTER OTHER PRN (14:00)
[2017-03-02 17:38] VITALS: BP 118/80; PULSE 61; RESP 18; TEMP 98.1; O2SAT 98
[2017-03-02] MEDS: ATORVASTATIN 40 MG TAB PO SCH (20:40)
[2017-03-03 05:42] VITALS: BP 100/59; PULSE 64; RESP 16; TEMP 97.8; O2SAT 93
[2017-03-03] MEDS: PANTOPRAZOLE SOD 20 MG DELAYED RELEASE TAB PO SCH (08:36)
[2017-03-03] MEDS: QUEtiapine FUMARATE 25 MG TAB PO SCH ×2 (08:36→20:59)
[2017-03-03] MEDS ORDERED: COLCHICINE 0.6 MG TAB PO SCH (09:00)
--- NOTE | 2017-03-03 11:36 | HHI.PYPN ---
Subjective Chief Complaint: Dementia with behavioral disturbance Remarks Patient seen and examined with nurse. Chart reviewed. Case discussed in treatment team. Nurse reports patient refused Seroquel this morning. On my examination today, patient is exit seeking, although he does not know where he is at or where he might go. He tries to get me to open the exit door. He remains confused as at baseline. He is not aggressive or assaultive. No reported side effects from medications. No physical complaints. Review of Systems ROS Limitations: Poor Historian Except as stated in HPI: all other systems reviewed are Neg Mental Status Examination Appearance: Disheveled Consciousness: Alert Orientation: Person (only) Motor Activity: Normal gait, Other (no abnormal motor movements noted) Speech: Slow Language: Adequate Fund of Knowledge: Inadequate Attention and Concentration: Inadequate Memory: Impaired (impaired on clinical exam) Mood: Other (calm) Affect: Blunt Thought Process & Associations: Other (remains slowed) Thought Content: Other (paucity of thought) Hallucination Type: None Delusion Type: None Suicidal Ideation: No (unreliable to contract for safety) Homicidal Ideation: No (unreliable to contract for safety) Insight: Poor Judgment: Poor Results Labs Labs reviewed. No new labs. Vitals/IOs Vital Signs Date Time Temp Pulse Resp B/P (MAP) Pulse Ox O2 Delivery O2 Flow Rate FiO2 03/03/17 05:42 97.8 64 16 100/59 (73) 93 Assessment & Plan Problem List: (1) Dementia ICD Codes: F03.90 - Unspecified dementia without behavioral disturbance Assessment & Plan Patient refusing oral Seroquel. Since he already received IM Thorazine and apparently tolerated this agent well, I will adjust IM Thorazine to serve as IM backup in case patient should refuse the Seroquel. Continue to monitor on the high acuity unit today, although we may consider transitioning the patient back to the lower acuity unit/geropsychiatric unit tomorrow if there is no evidence of behavioral disturbance. There has been no evidence of aggression so far. Continue other medications and care as ordered. Justification for Cont. Inpt. Impairment in reality construction as a consequence of his dementia. Medication adjustments. Risk for decompensation in less restrictive environment. Discharge Planning Placement. Case discussed with counselor. Request HC Surrog/Guard Advoc?: Yes Problem Qualifiers (1) Dementia: Qualified Codes: G30.8 - Other Alzheimer's disease; F02.81 - Dementia in other diseases classified elsewhere with behavioral disturbance Luis Fernando Brown MD Mar 03, 2017 11:36
--- NOTE | 2017-03-03 15:07 | PD.TTN ---
Patient Problems 1. Discharge planning 2. Medication compliance 3. Knowledge deficit 4. Lack of coping skills Progress Toward Goals Provider Present: Dr. Yoshi Brown Provider Input: Dr. Brown reported the patient was abserved taking plastic knives from other patient's plates and putting them in his pocket. Patient was transferred to the 2700 unit. Psychiatric Counselors Present: RODRIGUE Bravo Psych Therapist Input: Counselor reported the patient continues to exit seek and wander the unit. Group Spec/RT/OT/GALVEZ Present: AUREA Mcnair Group Spec/RT/OT/GALVEZ Input: Patient does not participate. Documentation Scribe: RODRIGUE Bravo Date Resolved: Mar 03, 2017 Blanche Ruth Mar 03, 2017 15:07
[2017-03-03 17:49] VITALS: BP 96/58; PULSE 70; RESP 18; TEMP 97.8; O2SAT 98
[2017-03-03] MEDS: ATORVASTATIN 40 MG TAB PO SCH (20:59)
[2017-03-04 06:13] VITALS: BP 125/67; PULSE 64; RESP 16; TEMP 98; O2SAT 96
[2017-03-04] MEDS: QUEtiapine FUMARATE 25 MG TAB PO SCH ×2 (09:00→22:18)
[2017-03-04] MEDS: PANTOPRAZOLE SOD 20 MG DELAYED RELEASE TAB PO SCH (09:00)
--- NOTE | 2017-03-04 11:17 | HHI.PYPN ---
Subjective Chief Complaint: Dementia with behavioral disturbance Remarks Patient seen and examined with nurse. Chart reviewed. Case discussed with nursing staff and with counselor. On my examination today, the patient remains confused. He continues to ask about discharge. No evidence of behavioral disturbance during observation on high acuity unit. No side effects from medications, and the patient did accept his Seroquel yesterday evening and this morning. Patient complains of leg pain, and I note the hospitalist is addressing this. No other physical complaints. Review of Systems ROS Limitations: Poor Historian Except as stated in HPI: all other systems reviewed are Neg Mental Status Examination Appearance: Disheveled Consciousness: Alert Orientation: Person (only) Motor Activity: Normal gait, Other (no motoric abnormalities noted) Speech: Slow Language: Adequate Fund of Knowledge: Inadequate Attention and Concentration: Inadequate Memory: Impaired (remains impaired on clinical exam) Mood: Other (remains calm) Affect: Blunt Thought Process & Associations: Other (somewhat slowed with paucity of thought) Thought Content: Other (paucity of thought) Hallucination Type: None Delusion Type: None Suicidal Ideation: No (unreliable to contract for safety) Homicidal Ideation: No (unreliable to contract for safety) Insight: Poor Judgment: Poor Results Labs Labs reviewed. No new labs. Vitals/IOs Vital Signs Date Time Temp Pulse Resp B/P (MAP) Pulse Ox O2 Delivery O2 Flow Rate FiO2 03/04/17 06:13 98.0 64 16 125/67 (86) 96 Assessment & Plan Problem List: (1) Dementia ICD Codes: F03.90 - Unspecified dementia without behavioral disturbance Assessment & Plan Continue current psychotropics as ordered. Transition back to lower acuity unit as there has been no evidence of any behavioral disturbance on the higher acuity unit. Hospitalist input appreciated. Continue other medications and care as ordered. Justification for Cont. Inpt. High risk for decompensation in less restrictive environment Discharge Planning Pending outcome of [place] [facility] tomorrow. Placement. Request HC Surrog/Guard Advoc?: Yes Problem Qualifiers (1) Dementia: Qualified Codes: G30.8 - Other Alzheimer's disease; F02.81 - Dementia in other diseases classified elsewhere with behavioral disturbance Luis Fernando Brown MD Mar 04, 2017 11:17
--- NOTE | 2017-03-04 13:32 | HHI.PR ---
Subjective Remarks in no acute distress. complaining of some pain to both legs. d/w the RN and no acute issues over night. Objective Vitals Vital Signs Date Time Temp Pulse Resp B/P (MAP) Pulse Ox O2 Delivery O2 Flow Rate FiO2 03/04/17 06:13 98.0 64 16 125/67 (86) 96 03/03/17 17:49 97.8 70 18 96/58 (71) 98 Result Diagram: 03/02/17 1122 03/02/17 1122 Imaging Last Impressions Toe X-Ray 03/02/17 0000 Signed Impressions: Service Date/Time: Thursday, March 02, 2017 10:34 - CONCLUSION: 1. No plain film findings of osteomyelitis. If there is necessity for further evaluation contrast-enhanced MRI is recommended. 2. Gout could also be considered Luis Fernando Gonzalez MD Head CT 02/26/17 1546 Signed Impressions: Service Date/Time: January 17:53 - CONCLUSION: 1. Moderate atrophic change with no evidence of hemorrhage or mass effect. 2. Mild mucosal thickening in the paranasal sinuses. Inocente Tapia MD Objective Remarks GENERAL: This is a well-nourished, well-developed patient, in no apparent distress. CARDIOVASCULAR: Regular rate and regular rhythm without murmurs, gallops, or rubs. RESPIRATORY: Clear to auscultation. Breath sounds equal bilaterally. No wheezes , rales, or rhonchi. GASTROINTESTINAL: Abdomen soft, non-tender, nondistended. Normal, active bowel sounds MUSCULOSKELETAL: Extremities without clubbing, cyanosis, or edema. NEURO: awake and alert. Medications and IVs Current Medications Lorazepam (Ativan Inj) 1 mg ONCE ONCE IM Last administered on 02/26/17 15:45 ; Start 02/26/17 at 15:45; Stop 02/26/17 at 15:46; Status DC Haloperidol Lactate (Haldol Inj) 5 mg ONCE ONCE IM Last administered on 15:45; Start 02/26/17 at 15:45; Stop 02/26/17 at 15:46; Status DC Sodium Chloride (NS Flush) 2 ml UNSCH PRN IV FLUSH FLUSH AFTER USING IV ACCESS ; Start 02/26/17 at 16:00 Sodium Chloride 500 ml @ 500 mls/hr BOLUS ONCE IV Last administered on 18:22; Start 02/26/17 at 17:45; Stop 02/26/17 at 18:44; Status DC Acetaminophen (Tylenol) 650 mg Q4H PRN PO Pain 1-5 or Temp >101F Last administered on 03/02/17 08:25; Start 02/26/17 at 22:45 Magnesium Hydroxide (Milk Of Magnesia Liq) 30 ml DAILY PRN PO CONSTIPATION; Start 02/26/17 at 22:45 Al Hydrox/Mg Hydrox/Simethicone (Mag-Al Plus Susp Liq) 30 ml Q6H PRN PO DYSPEPSIA; Start 02/26/17 at 22:45 Haloperidol Lactate (Haldol Inj) 2 mg Q8H PRN IM SEVERE AGITATION; Start at 11:15; Stop 02/27/17 at 13:39; Status DC Haloperidol (Haldol) 2 mg Q8H PRN PO SEVERE AGITATION; Start 02/27/17 at 11:15 ; Stop 02/27/17 at 13:39; Status DC Diphenhydramine HCl (Benadryl) 25 mg Q6H PRN PO EXTRA PYRAMIDAL SYMPTOMS; Start 02/27/17 at 11:15 Diphenhydramine HCl (Benadryl Inj) 25 mg Q6H PRN IM EPS, unable to take PO; Start 02/27/17 at 11:15 Melatonin (Melatonin) 5 mg HS PRN PO INSOMNIA; Start 02/27/17 at 21:00 Atorvastatin Calcium (Lipitor) 40 mg HS PO Last administered on 03/03/17 20:59 ; Start 02/27/17 at 21:00 Memantine (Namenda) 10 mg BID PO ; Start 02/28/17 at 09:00; Stop 02/28/17 at 09: 00; Status DC Non-Formulary Medication 20 mg DAILY PO ; Start 02/28/17 at 09:00; Stop at 09:00; Status DC Pantoprazole Sodium (Protonix) 20 mg DAILY PO Last administered on 03/04/17 09 :00; Start 02/28/17 at 09:00 Quetiapine Fumarate (SEROquel) 25 mg BID PO Last administered on 03/02/17 08: 26; Start 02/27/17 at 21:00; Stop 03/02/17 at 13:25; Status DC Chlorpromazine HCl (Thorazine Inj) 6.25 mg Q8H PRN IM SEVERE AGITATION Last administered on 02/27/17 15:38; Start 02/27/17 at 13:45; Stop 03/03/17 at 14:18 ; Status DC Ibuprofen (Motrin) 400 mg ONCE ONCE PO Last administered on 03/02/17 11:08; Start 03/02/17 at 10:15; Stop 03/02/17 at 10:17; Status DC Ibuprofen (Advil) 200 mg Q8HR PRN PO pain in his toe ; Start 03/02/17 at 10:15 Colchicine (Colchicine) 0.6 mg ONCE ONCE PO Last administered on 03/02/17 11: 08; Start 03/02/17 at 10:15; Stop 03/02/17 at 10:17; Status DC Colchicine (Colchicine) 0.6 mg DAILY PO ; Start 03/03/17 at 09:00; Stop at 09:05; Status DC Quetiapine Fumarate (SEROquel) 37.5 mg BID PO Last administered on 03/04/17 09 :00; Start 03/02/17 at 21:00 Miscellaneous (Pill Splitter) 1 ea UNSCH PRN OTHER SEE LABEL COMMENTS; Start 03/02/17 at 14:00 Chlorpromazine HCl (Thorazine Inj) 6.25 mg BID PRN IM Refuses PO Seroquel Last administered on 03/03/17 14:51; Start 03/03/17 at 14:30 A/P Assessment and Plan Dementia with behavioral disturbance. Management per psych H/o CAD with stent placed? Restart home medications DVT prophylaxis patient is ambulating Jeffrey Feng MD Mar 04, 2017 13:32
[2017-03-04 18:00] VITALS: BP 120/64; PULSE 68; RESP 18; TEMP 98.6; O2SAT 97
[2017-03-04] MEDS: ATORVASTATIN 40 MG TAB PO SCH (22:18)
[2017-03-05 06:12] VITALS: BP 143/63; PULSE 58; RESP 16; TEMP 97.6; O2SAT 96
[2017-03-05] MEDS: PANTOPRAZOLE SOD 20 MG DELAYED RELEASE TAB PO SCH (08:40)
[2017-03-05] MEDS: QUEtiapine FUMARATE 25 MG TAB PO SCH ×2 (08:40→20:20)
--- NOTE | 2017-03-05 09:52 | HHI.PYPN ---
Subjective Chief Complaint: Dementia with behavioral disturbance Remarks Patient seen and case discussed with nursing staff. Chart reviewed. Per nursing, patient has had a somewhat pessimistic outlook but otherwise has been no behavioral problem. For me, patient remains confused but calm. Counselor reports that patient's family has secured placement and that a bed will be available early next week. No evidence side effects from medications. No physical complaints voiced. Review of Systems ROS Limitations: Poor Historian Except as stated in HPI: all other systems reviewed are Neg Mental Status Examination Appearance: Disheveled Consciousness: Alert Orientation: Person Motor Activity: Normal gait, Other (no abnormal motor movements noted) Speech: Slow Language: Adequate Fund of Knowledge: Inadequate Attention and Concentration: Inadequate Memory: Impaired (impaired) Mood: Other (calm) Affect: Blunt (perhaps slightly dysphoric) Thought Process & Associations: Other (a little slowed) Thought Content: Other (paucity of thought) Hallucination Type: None Delusion Type: None Suicidal Ideation: No (no SI voiced) Homicidal Ideation: No (no HI voiced) Insight: Poor Judgment: Poor Results Labs Labs reviewed. No new labs. Vitals/IOs Vital Signs Date Time Temp Pulse Resp B/P (MAP) Pulse Ox O2 Delivery O2 Flow Rate FiO2 03/05/17 06:12 97.6 58 16 143/63 (89) 96 Intake and Output 03/05/17 03/05/17 03/06/17 08:00 16:00 00:00 Intake Total 360 ml Balance 360 ml Assessment & Plan Problem List: (1) Dementia ICD Codes: F03.90 - Unspecified dementia without behavioral disturbance Assessment & Plan Continue Seroquel with Thorazine IM backup. Continue to monitor on the inpatient unit. Continue other medications and care as ordered. Patient's case presented [place] in case placed in continuance for 4 weeks with to serve as healthcare surrogate. Justification for Cont. Inpt. Risk for decompensation in less restrictive environment Discharge Planning Anticipate discharge to facility beginning of next week. Case discussed with counselor. Request HC Surrog/Guard Advoc?: Yes Problem Qualifiers (1) Dementia: Qualified Codes: G30.8 - Other Alzheimer's disease; F02.81 - Dementia in other diseases classified elsewhere with behavioral disturbance Luis Fernando Brown MD Mar 05, 2017 09:52
--- NOTE | 2017-03-05 12:33 | HHI.PR ---
Subjective Remarks in no acute distress. somewhat paranoid. not cooperative with the exam. tried to examine him- however he refused. Objective Vitals Vital Signs Date Time Temp Pulse Resp B/P (MAP) Pulse Ox O2 Delivery O2 Flow Rate FiO2 03/05/17 06:12 97.6 58 16 143/63 (89) 96 03/04/17 18:00 98.6 68 18 120/64 (82) 97 I/O 03/04/17 03/04/17 03/04/17 03/05/17 03/05/17 03/05/17 07:00 15:00 23:00 07:00 15:00 23:00 Intake Total 150 ml 360 ml Balance 150 ml 360 ml Intake Oral 150 ml 360 ml Result Diagram: 03/02/17 1122 03/02/17 1122 Imaging Last Impressions Toe X-Ray 03/02/17 0000 Signed Impressions: Service Date/Time: Thursday, March 02, 2017 10:34 - CONCLUSION: 1. No plain film findings of osteomyelitis. If there is necessity for further evaluation contrast-enhanced MRI is recommended. 2. Gout could also be considered Luis Fernando Gonzalez MD Head CT 02/26/17 1546 Signed Impressions: Service Date/Time: January 17:53 - CONCLUSION: 1. Moderate atrophic change with no evidence of hemorrhage or mass effect. 2. Mild mucosal thickening in the paranasal sinuses. Inocente Tapia MD Objective Remarks GENERAL: This is a well-nourished, well-developed patient, in no apparent distress. CARDIOVASCULAR: Regular rate and regular rhythm without murmurs, gallops, or rubs. RESPIRATORY: Clear to auscultation. Breath sounds equal bilaterally. No wheezes , rales, or rhonchi. GASTROINTESTINAL: Abdomen soft, non-tender, nondistended. Normal, active bowel sounds MUSCULOSKELETAL: Extremities without clubbing, cyanosis, or edema. NEURO: awake and alert. Medications and IVs Current Medications Lorazepam (Ativan Inj) 1 mg ONCE ONCE IM Last administered on 02/26/17 15:45 ; Start 02/26/17 at 15:45; Stop 02/26/17 at 15:46; Status DC Haloperidol Lactate (Haldol Inj) 5 mg ONCE ONCE IM Last administered on 15:45; Start 02/26/17 at 15:45; Stop 02/26/17 at 15:46; Status DC Sodium Chloride (NS Flush) 2 ml UNSCH PRN IV FLUSH FLUSH AFTER USING IV ACCESS ; Start 02/26/17 at 16:00 Sodium Chloride 500 ml @ 500 mls/hr BOLUS ONCE IV Last administered on 18:22; Start 02/26/17 at 17:45; Stop 02/26/17 at 18:44; Status DC Acetaminophen (Tylenol) 650 mg Q4H PRN PO Pain 1-5 or Temp >101F Last administered on 03/02/17 08:25; Start 02/26/17 at 22:45 Magnesium Hydroxide (Milk Of Magnesia Liq) 30 ml DAILY PRN PO CONSTIPATION; Start 02/26/17 at 22:45 Al Hydrox/Mg Hydrox/Simethicone (Mag-Al Plus Susp Liq) 30 ml Q6H PRN PO DYSPEPSIA; Start 02/26/17 at 22:45 Haloperidol Lactate (Haldol Inj) 2 mg Q8H PRN IM SEVERE AGITATION; Start at 11:15; Stop 02/27/17 at 13:39; Status DC Haloperidol (Haldol) 2 mg Q8H PRN PO SEVERE AGITATION; Start 02/27/17 at 11:15 ; Stop 02/27/17 at 13:39; Status DC Diphenhydramine HCl (Benadryl) 25 mg Q6H PRN PO EXTRA PYRAMIDAL SYMPTOMS; Start 02/27/17 at 11:15 Diphenhydramine HCl (Benadryl Inj) 25 mg Q6H PRN IM EPS, unable to take PO; Start 02/27/17 at 11:15 Melatonin (Melatonin) 5 mg HS PRN PO INSOMNIA; Start 02/27/17 at 21:00 Atorvastatin Calcium (Lipitor) 40 mg HS PO Last administered on 03/04/17 22:18 ; Start 02/27/17 at 21:00 Memantine (Namenda) 10 mg BID PO ; Start 02/28/17 at 09:00; Stop 02/28/17 at 09: 00; Status DC Non-Formulary Medication 20 mg DAILY PO ; Start 02/28/17 at 09:00; Stop at 09:00; Status DC Pantoprazole Sodium (Protonix) 20 mg DAILY PO Last administered on 03/04/17 09 :00; Start 02/28/17 at 09:00 Quetiapine Fumarate (SEROquel) 25 mg BID PO Last administered on 03/02/17 08: 26; Start 02/27/17 at 21:00; Stop 03/02/17 at 13:25; Status DC Chlorpromazine HCl (Thorazine Inj) 6.25 mg Q8H PRN IM SEVERE AGITATION Last administered on 02/27/17 15:38; Start 02/27/17 at 13:45; Stop 03/03/17 at 14:18 ; Status DC Ibuprofen (Motrin) 400 mg ONCE ONCE PO Last administered on 03/02/17 11:08; Start 03/02/17 at 10:15; Stop 03/02/17 at 10:17; Status DC Ibuprofen (Advil) 200 mg Q8HR PRN PO pain in his toe ; Start 03/02/17 at 10:15 Colchicine (Colchicine) 0.6 mg ONCE ONCE PO Last administered on 03/02/17 11: 08; Start 03/02/17 at 10:15; Stop 03/02/17 at 10:17; Status DC Colchicine (Colchicine) 0.6 mg DAILY PO ; Start 03/03/17 at 09:00; Stop at 09:05; Status DC Quetiapine Fumarate (SEROquel) 37.5 mg BID PO Last administered on 03/04/17 22 :18; Start 03/02/17 at 21:00 Miscellaneous (Pill Splitter) 1 ea UNSCH PRN OTHER SEE LABEL COMMENTS; Start 03/02/17 at 14:00 Chlorpromazine HCl (Thorazine Inj) 6.25 mg BID PRN IM Refuses PO Seroquel Last administered on 03/03/17 14:51; Start 03/03/17 at 14:30 A/P Assessment and Plan Dementia with behavioral disturbance. Management per psych H/o CAD with stent placed? Restart home medications left leg/foot pain XR negative for osteomyelitis- continue with pain control. Vitamin d deficiency; will start the supplement. DVT prophylaxis patient is ambulating patient is refusing the exam. [facility] will sign off- please call if needed and patient is more cooperative. d/w the RN. Jeffrey Feng MD Mar 05, 2017 12:33
[2017-03-05] MEDS: ATORVASTATIN 40 MG TAB PO SCH (20:20)
[2017-03-05 20:28] VITALS: BP 134/84; PULSE 71; RESP 17; TEMP 98.1; O2SAT 97
[2017-03-06 06:26] VITALS: BP 128/63; PULSE 58; RESP 16; TEMP 97.5; O2SAT 95
[2017-03-06] MEDS: CHOLECALCIFEROL (VIT D3) 1000 UNIT TAB PO SCH (08:35)
[2017-03-06] MEDS: QUEtiapine FUMARATE 25 MG TAB PO SCH ×2 (08:35→21:00)
[2017-03-06] MEDS: PANTOPRAZOLE SOD 20 MG DELAYED RELEASE TAB PO SCH (08:35)
[2017-03-06] MEDS: ACETAMINOPHEN 325 MG TAB PO PRN ×2 (09:40→17:28)
--- NOTE | 2017-03-06 10:42 | HHI.PYPN ---
Subjective Chief Complaint: Dementia with behavioral disturbance Remarks Patient seen and examined with nurse. Chart reviewed. Case discussed with nursing staff. Case discussed in treatment team. Patient medication compliant and no behavioral problem on the unit. On my examination today, the patient is sitting calmly in the day area. He has discharge focused, calls the unit "a long-term," but is not making efforts to leave the unit. No mood or psychotic symptoms. No side effects from medications. No physical complaints. Review of Systems ROS Limitations: Poor Historian Except as stated in HPI: all other systems reviewed are Neg Mental Status Examination Appearance: Disheveled Consciousness: Alert Orientation: Person Motor Activity: Normal gait, Other (No motor abnormalities noted.) Speech: Slow Language: Adequate Fund of Knowledge: Inadequate Attention and Concentration: Inadequate Memory: Impaired Mood: Other (remains calm) Affect: Blunt Thought Process & Associations: Other (somewhat slowed) Thought Content: Other (paucity of thought) Hallucination Type: None Delusion Type: None Suicidal Ideation: No (no SI voiced) Homicidal Ideation: No (no HI voiced) Insight: Poor Judgment: Poor Results Labs Labs reviewed. No new labs. Vitals/IOs Vital Signs Date Time Temp Pulse Resp B/P (MAP) Pulse Ox O2 Delivery O2 Flow Rate FiO2 03/06/17 06:26 97.5 58 16 128/63 (84) 95 Intake and Output 03/06/17 03/06/17 03/07/17 08:00 16:00 00:00 Intake Total 240 ml Balance 240 ml Assessment & Plan Problem List: (1) Dementia ICD Codes: F03.90 - Unspecified dementia without behavioral disturbance Assessment & Plan Continue current psychotropics as ordered. Continue to monitor on the inpatient unit. Continue other medications and care as ordered. Justification for Cont. Inpt. Risk for decompensation in less restrictive environment. Discharge Planning Counselor reports that patient will have placement available Thursday. Request HC Surrog/Guard Advoc?: Yes Problem Qualifiers (1) Dementia: Qualified Codes: G30.8 - Other Alzheimer's disease; F02.81 - Dementia in other diseases classified elsewhere with behavioral disturbance Luis Fernando Brown MD Mar 06, 2017 10:42
[2017-03-06] MEDS: ATORVASTATIN 40 MG TAB PO SCH (21:00)
[2017-03-07 05:57] VITALS: BP 112/57; PULSE 54; RESP 18; TEMP 97; O2SAT 96
[2017-03-07] MEDS: PANTOPRAZOLE SOD 20 MG DELAYED RELEASE TAB PO SCH (08:35)
[2017-03-07] MEDS: CHOLECALCIFEROL (VIT D3) 1000 UNIT TAB PO SCH (08:35)
[2017-03-07] MEDS: QUEtiapine FUMARATE 25 MG TAB PO SCH ×2 (08:36→21:45)
[2017-03-07 17:55] VITALS: BP 128/60; PULSE 62; RESP 17; TEMP 98.3; O2SAT 97
--- NOTE | 2017-03-07 18:19 | HHI.PYPN ---
Subjective Chief Complaint: Dementia with behavioral disturbance Remarks Patient was seen and case discussed with nursing. Patient is alert and oriented 1. Pleasant and cooperative with exam. Compliant with his medications and tolerating them well. Thought processes tangential. Not answering questions appropriately, possibly hard of hearing Mental Status Examination Appearance: Disheveled Consciousness: Alert Orientation: Person Motor Activity: Normal gait, Other (No motor abnormalities noted.) Speech: Slow Language: Adequate Fund of Knowledge: Inadequate Attention and Concentration: Inadequate Memory: Impaired Mood: Other (remains calm) Affect: Blunt Thought Process & Associations: Other (somewhat slowed) Thought Content: Other (poverty of thought) Hallucination Type: None Delusion Type: None Suicidal Ideation: No (no SI voiced) Homicidal Ideation: No (no HI voiced) Insight: Poor Judgment: Poor Results Vitals/IOs Vital Signs Date Time Temp Pulse Resp B/P (MAP) Pulse Ox O2 Delivery O2 Flow Rate FiO2 03/07/17 17:55 98.3 62 17 128/60 (82) 97 Intake and Output 03/07/17 03/07/17 03/08/17 08:00 16:00 00:00 Intake Total 240 ml 960 ml Balance 240 ml 960 ml Assessment & Plan Problem List: (1) Dementia ICD Codes: F03.90 - Unspecified dementia without behavioral disturbance Assessment & Plan Continue current treatment plan Justification for Cont. Inpt. Patient will decompensate in a less restrictive setting Request HC Surrog/Guard Advoc?: Yes Problem Qualifiers (1) Dementia: Qualified Codes: G30.8 - Other Alzheimer's disease; F02.81 - Dementia in other diseases classified elsewhere with behavioral disturbance Andrei Hurley DO Mar 07, 2017 18:19
[2017-03-07] MEDS: ATORVASTATIN 40 MG TAB PO SCH (21:45)
[2017-03-08 05:35] VITALS: BP 107/67; PULSE 66; RESP 19; TEMP 97
[2017-03-08] MEDS: QUEtiapine FUMARATE 25 MG TAB PO SCH ×2 (09:00→21:11)
[2017-03-08] MEDS: CHOLECALCIFEROL (VIT D3) 1000 UNIT TAB PO SCH (09:00)
[2017-03-08] MEDS: PANTOPRAZOLE SOD 20 MG DELAYED RELEASE TAB PO SCH (09:00)
--- NOTE | 2017-03-08 17:24 | HHI.PYPN ---
Subjective Chief Complaint: Dementia with behavioral disturbance Remarks Patient was seen and case discussed with nursing. Patient remains confused. He is alert and oriented 1. Has been oppositional with his medications and had to get an ETO.'s perseverative on discharge has poor insight into his stay here. Mental Status Examination Appearance: Disheveled Consciousness: Alert Orientation: Person Motor Activity: Normal gait, Other (No motor abnormalities noted.) Speech: Slow Language: Adequate Fund of Knowledge: Inadequate Attention and Concentration: Inadequate Memory: Impaired Mood: Other (remains calm) Affect: Flat Thought Process & Associations: Other (somewhat slowed) Thought Content: Other (poverty of thought) Hallucination Type: None Delusion Type: None Suicidal Ideation: No (no SI voiced) Homicidal Ideation: No (no HI voiced) Insight: Poor Judgment: Poor Results Vitals/IOs Vital Signs Date Time Temp Pulse Resp B/P (MAP) Pulse Ox O2 Delivery O2 Flow Rate FiO2 03/08/17 05:35 97.0 66 19 107/67 (80) 03/07/17 17:55 97 Intake and Output 03/08/17 03/08/17 03/09/17 08:00 16:00 00:00 Intake Total 480 ml Balance 480 ml Assessment & Plan Problem List: (1) Dementia ICD Codes: F03.90 - Unspecified dementia without behavioral disturbance Assessment & Plan Continue current treatment plan Justification for Cont. Inpt. Patient would decompensate in a less restrictive setting Request HC Surrog/Guard Advoc?: Yes Problem Qualifiers (1) Dementia: Qualified Codes: G30.8 - Other Alzheimer's disease; F02.81 - Dementia in other diseases classified elsewhere with behavioral disturbance Andrei Hurley DO Mar 08, 2017 17:24
[2017-03-08 17:59] VITALS: BP 124/61; PULSE 57; RESP 18; TEMP 97.4; O2SAT 96
[2017-03-08] MEDS: ATORVASTATIN 40 MG TAB PO SCH (21:11)
[2017-03-09 05:26] VITALS: BP 132/70; PULSE 60; RESP 16; TEMP 97.7; O2SAT 97
[2017-03-09] MEDS: PANTOPRAZOLE SOD 20 MG DELAYED RELEASE TAB PO SCH (08:44)
[2017-03-09] MEDS: CHOLECALCIFEROL (VIT D3) 1000 UNIT TAB PO SCH (08:44)
[2017-03-09] MEDS: QUEtiapine FUMARATE 25 MG TAB PO SCH ×2 (08:44→21:08)
--- NOTE | 2017-03-09 10:55 | HHI.PYPN ---
Subjective Chief Complaint: Dementia with behavioral disturbance Remarks Patient seen and examined. Chart reviewed. Case discussed with nursing staff. Case discussed with counselor. No significant behavioral issues overnight. On my examination today, the patient is sitting calmly in the day area. He offers no particular complaints. He remains confused as at baseline. No mood or psychotic symptoms. No side effects from medications. No physical complaints. I tried to discuss with him the plan of care at a level appropriate to his degree of cognitive impairment. Review of Systems ROS Limitations: Poor Historian Except as stated in HPI: all other systems reviewed are Neg Mental Status Examination Appearance: Disheveled Consciousness: Alert Orientation: Person (person only) Motor Activity: Normal gait, Other (no abnormal motor movements noted) Speech: Slow (somewhat slow) Language: Adequate Fund of Knowledge: Inadequate Attention and Concentration: Inadequate Memory: Impaired (remains impaired) Mood: Other (calm) Affect: Flat Thought Process & Associations: Other (somewhat slowed) Thought Content: Other (poverty of thought) Hallucination Type: None Delusion Type: None Suicidal Ideation: No (none) Homicidal Ideation: No (none) Insight: Poor Judgment: Poor Results Labs Labs reviewed. No new labs. Vitals/IOs Vital Signs Date Time Temp Pulse Resp B/P (MAP) Pulse Ox O2 Delivery O2 Flow Rate FiO2 03/09/17 05:26 97.7 60 16 132/70 (90) 97 Assessment & Plan Problem List: (1) Dementia ICD Codes: F03.90 - Unspecified dementia without behavioral disturbance Assessment & Plan Continue current psychotropics as ordered. Continue to monitor on the inpatient unit. Continue other medications and care as ordered. Justification for Cont. Inpt. Risk for decompensation in less restrictive environment Discharge Planning Possible discharge to facility tomorrow. Case discussed with counselor. Request HC Surrog/Guard Advoc?: Yes Problem Qualifiers (1) Dementia: Qualified Codes: G30.8 - Other Alzheimer's disease; F02.81 - Dementia in other diseases classified elsewhere with behavioral disturbance Luis Fernando Brown MD Mar 09, 2017 10:55
[2017-03-09] MEDS: ATORVASTATIN 40 MG TAB PO SCH (21:08)
[2017-03-10 05:14] VITALS: BP 137/77; PULSE 61; RESP 16; TEMP 98; O2SAT 97
[2017-03-10] MEDS: PANTOPRAZOLE SOD 20 MG DELAYED RELEASE TAB PO SCH (08:12)
[2017-03-10] MEDS: QUEtiapine FUMARATE 25 MG TAB PO SCH (08:12)
[2017-03-10] MEDS: CHOLECALCIFEROL (VIT D3) 1000 UNIT TAB PO SCH (08:12)
--- NOTE | 2017-03-10 09:21 | PD.TTN ---
Patient Problems 1. Discharge planning 2. Medication compliance 3. Knowledge deficit 4. Lack of coping skills Progress Toward Goals Provider Present: Dr. Yoshi Brown Provider Input: 03-10-17 - Patient will be discharged to [facility] today. No medication adjustments have been necessary in the past week. Dr. Brown reported the patient was abserved taking plastic knives from other patient's plates and putting them in his pocket. Patient was transferred to the 2700 unit. Psychiatric Counselors Present: RODRIGUE Bravo Psych Therapist Input: 03-10-17 - Counselor reported that the patient will be discharged to [facility] today, pending their admission staff review. Haven, from [facility], came to assess the patient yesterday afternoon. Counselor reported the patient continues to exit seek and wander the unit. Group Spec/RT/OT/GALVEZ Present: AUREA Mcnair Group Spec/RT/OT/GALVEZ Input: 03-10-17 - Patient does not participate. Patient does not participate. Documentation Scribe: RODRIGUE Bravo Date Resolved: Mar 10, 2017 Blanche Ruth Mar 10, 2017 09:21
[2017-03-10] MEDS ORDERED: CHOL1000 PO (11:26)
[2017-03-10] MEDS ORDERED: ATOR40TA16 PO (11:26)
[2017-03-10] MEDS ORDERED: OMEP20TA93 PO (11:26)
[2017-03-10] MEDS ORDERED: SERO25TA PO (11:26)
--- NOTE | 2017-03-10 11:26 | HHI.DS ---
Psychiatry Discharge Summary Inpatient Psychiatric care?: Yes Advance Directive: Yes Reason Not Provided: WILL PROVIDE Mental Health AdvanceDirective: No Health Care Proxy: No Admission Admission Date Feb 26, 2017 at 22:39 Admission Diagnosis: (1) Dementia with behavioral disturbance ICD Code: F03.91 - Unspecified dementia with behavioral disturbance Brief History Abdiel Rodrigues is 81 year-old male with a history of dementia who was brought to the emergency department by his family out of concern for wandering behavior and aggression. He was seen by psychiatric nurse practitioner who recommended admission to inpatient psychiatric unit. Reviewing the EMR, I see no prior psychiatric contact within our system.Patient seen and examined. Chart reviewed. Case discussed with nursing staff. On my exam, patient presents as quite confused, MMSE 4/30. He is disheveled and malodorous. Affect is blunted. He is hypoverbal with paucity of thought. He tells me that he is looking for his clothes. "I don't know what happened here. I was supposed to go to [facility], but they took my clothes off." He denies issues with mood, nor can I elicit any depressive of hypomanic/manic symptoms. He denies AVH. Besides some paranoia, I can elicit no delusional material. Psychiatric interview is limited because of the patient's cognitive impairment. He offers no physical complaints. Tobacco Use In Past 30 Days: Cognitive Impairment Alcohol Use: Never (Cognitive impairment) Hospital Course Patient was admitted to a locked, inpatient psychiatric unit. A general medical consultation was obtained. Appropriate precautions were in place throughout patient's hospital stay. Patient was seen and examined on the unit by psychiatry and also visited by counselor. Psychotropic medications were adjusted. Patient tolerated medication changes well without side effects. Patient had improvement in presenting behavioral disturbance during the course of his hospital stay. There was no evidence of any suicidality or homicidality on the inpatient unit. Collateral was obtained from patient's . Counselor has worked with family and arranged for placement. On the day of discharge: Patient seen and examined. Chart reviewed. Case discussed in treatment team. Per nursing staff, no behavioral issues overnight. On my examination today, the patient remains confused as at baseline. He is calm and cooperative with examination, though. He denies any suicidal or homicidal ideation, intent or plan. No mood or psychotic symptoms elicited. Denies side effects from medications. No physical complaints. Suicide and violence risk assessment on day of discharge but suggests lower imminent risk, although there is a component of chronic risk related to impulsivity associated with patient's dementia, and this risk would not be further ameliorated by a longer inpatient psychiatric hospital stay. Patient's level of function is adequate for planned level of outpatient care. Patient will be discharged to facility today with psychiatric follow-up as arranged by counselor. Patient is also to follow-up with primary care. Patient to return to psychiatric emergency room for any concerning psychiatric symptoms. Results Blood Pressure 137 / 77 Vital Signs Date Time Temp Pulse Resp B/P (MAP) Pulse Ox O2 Delivery O2 Flow Rate FiO2 03/10/17 05:14 98.0 61 16 137/77 (97) 97 Laboratory Results Test 03/02/17 11:22 Cholesterol Level 134 MG/DL (120-200) HDL Cholesterol 41.1 MG/DL (40.0-60.0) Hemoglobin A1c 5.1 % (4.3-6.0) LDL Cholesterol 71 MG/DL (0-99) Triglycerides Level 108 MG/DL (42-150) Summary of Procedures None done Imaging Last Impressions Toe X-Ray 03/02/17 0000 Signed Impressions: Service Date/Time: Thursday, March 02, 2017 10:34 - CONCLUSION: 1. No plain film findings of osteomyelitis. If there is necessity for further evaluation contrast-enhanced MRI is recommended. 2. Gout could also be considered Luis Fernando Gonzalez MD Head CT 02/26/17 1546 Signed Impressions: Service Date/Time: January 17:53 - CONCLUSION: 1. Moderate atrophic change with no evidence of hemorrhage or mass effect. 2. Mild mucosal thickening in the paranasal sinuses. Inocente Tapia MD Pending results at discharge: No Medications # of Antipsychotic meds at D/C: 1 Approp Antipsych med options 1 - Minimum of three failed multiple trials of monotherapy. 2 - Documented plan to taper to monotherapy due to previous use of multiple meds OR cross-taper in progress at D/C. 3 - Documentation of augmentation of Clozapine. 4 - Justification other than those listed in allowable values 1-3, document here : Discharge Discharge Date: Mar 10, 2017 Discharge Diagnosis: (1) Dementia with behavioral disturbance Diagnosis: Principal (behavioral disturbance stabilized) ICD Code: F03.91 - Unspecified dementia with behavioral disturbance Status: Acute Pt Condition on Discharge: Stable Discharge Disposition: Discharge to SNF Discharge Instructions Diet Instructions: Heart Healthy Diet Activities you can perform: Weight Bearing as Vikas Scheduled Appointment: as per counselor's notes New Orders: BASIC METABOLIC PROF - 1 Week VITAMIN D,25-HYDROXY - 2 Months New Medications: Cholecalciferol (Gnp Vitamin D3 Extra Stre) 1,000 Unit Tab 1000 UNITS PO DAILY for Vitamin D supplement for 15 Days, TAB 1 Refill Quetiapine (Seroquel) 25 Mg Tab 37.5 MG PO BID for Mental Health for 15 Days, #45 TAB 1 Refill Continued Medications: Atorvastatin (Atorvastatin) 40 Mg Tab 40 MG PO HS for Cholesterol Management for 15 Days, TAB 1 Refill (This prescription has been renewed) Omeprazole (Omeprazole) 20 Mg Tab 20 MG PO DAILY for Health for 15 Days, #15 TAB 1 Refill (This prescription has been renewed) Discontinued Medications: Memantine Er (Namenda Xr) 28 Mg Caper 28 MG PO DAILY for Alzheimer Disease, #30 CAP 0 Refills Discharge Time <= 30 minutes Mental Status Examination Appearance: Disheveled (mild, grooming improved versus admission) Consciousness: Alert Orientation: Person (person only) Motor Activity: Other (no hand tremor, no dystonia, no dyskinesia. No other motor abnormalities noted.) Speech: Slow (somewhat slow) Language: Adequate Fund of Knowledge: Inadequate Attention and Concentration: Inadequate Memory: Impaired (remains impaired on clinical exam) Mood: Other (remains calm) Affect: Flat Thought Process & Associations: Other (slowed) Thought Content: Other (ongoing poverty of thought) Hallucination Type: None Delusion Type: None Suicidal Ideation: No Suicidal Plan: No Suicidal Intention: No Homicidal Ideation: No Homicidal Plan: No Homicidal Intention: No Insight: Poor (chronic condition) Judgment: Poor (chronic condition) Discharge/Advance Care Plan Health Problems: (1) Dementia Goals to promote your health * To prevent worsening of your condition and complications * To maintain your health at the optimal level Directions to meet your goals Take your medications as prescribed Follow your dietary instruction Follow activity as directed Keep your appointments as scheduled Take your immunizations and boosters as scheduled If your symptoms worsen call your PCP, if no PCP go to Urgent Care Center or Emergency Room For 20/10 questions related to your inpatient stay or results of tests pending at discharge, please contact Dr. Luis Fernando Brown at Smoking is Dangerous to Your Health. Avoid second hand smoking Problem Qualifiers (1) Dementia with behavioral disturbance: Qualified Codes: G30.8 - Other Alzheimer's disease; F02.81 - Dementia in other diseases classified elsewhere with behavioral disturbance Luis Fernando Brown MD Mar 10, 2017 11:26
== END 2017-03-10 16:03 | DRG 57 ==
LOC: NEPE 15:10 → NEDA 22:39 → H4EA 23:45 → H260 02-28 12:19 → H270 03-02 13:00 → H260 03-04 12:00 → H250 03-05 21:40
PROVIDERS: ADMIT Psychiatry & Neurology Psychiatry; ATTEND Psychiatry & Neurology Psychiatry
DX: G30.9 Alzheimer's disease, unspecified (principal); N17.9 Acute kidney failure, unspecified; F02.81 Dementia in other diseases classified elsewhere, unspecified severity, with behavioral disturbance; I25.10 Atherosclerotic heart disease of native coronary artery without angina pectoris; H91.90 Unspecified hearing loss, unspecified ear; M10.9 Gout, unspecified; E55.9 Vitamin D deficiency, unspecified; Z95.5 Presence of coronary angioplasty implant and graft; I25.2 Old myocardial infarction; Z91.14 Patient's other noncompliance with medication regimen; Z91.83 Wandering in diseases classified elsewhere
CPT/HCPCS: 70450; 73660; 80048; 80053; 80061; 81001; 82140; 82306; 82550; 82607; 83036; 84484; 84550; 85025; 85610; 85730; 93005; 96372; J1630; J2060; J3230; J7040; P9612

== ENCOUNTER 2017-03-12 14:14 | Inpatient (IN) | payer OTHER, MEDICARE ==
[~2017-03-12 14:14] MED LIST changes: -ASPI325T PO; +ATOR40TA16 PO; +CHOL1000 PO; +OMEP20TA93 PO; +SERO25TA PO; -TAB-TAB PO
[2017-03-12 14:16] VITALS: BP 116/61; PULSE 74; RESP 16; TEMP 97.8; O2SAT 96
[2017-03-12 15:17] LABS: BILIRUBIN, URINE NEG (NEG); BLOOD, URINE NEG (NEG); GLUCOSE,URINE NEG (NEG); KETONE, URINE NEG (NEG); MUCUS URINE MANY /lpf (OCC); NITRITE,URINE NEG (NEG); PH, URINE 5.5 (5.0-8.5); URINE COLOR YELLOW (YELLW/STRAW); URINE LEUKOCYTE ESTERASE NEG (NEG)
--- NOTE | 2017-03-12 15:39 | PD ---
HPI Chief Complaint: Medical Clearance Time Seen by Provider: 14:37 Travel History International Travel<30 days: No Contact w/Intl Traveler<30days: No Traveled to known affect area: No History of Present Illness HPI 81-year-old male was brought in by family members for eloping from residential facility. Patient has history of Alzheimer's and dementia. Patient was in a locked memory unit. Patient apparently eloped from the snf facility by scaling a tree and climbing over fence. Patient complains of neck pain and itching rash on lower extremity. The neck pain and itching rash has been going on for a while. No reported fever. Patient denies any headache. Patient denies any chest pain or shortness of breath. Patient denies abdominal pain. Patient denies any focal weakness or numbness of extremity. No recent medication change. Patient is on Seroquel. PFSH Past Medical History Alzheimer's Disease: Yes Heart Rhythm Problems: No Cancer: No Cardiac Catheterization: Yes Cardiovascular Problems: Yes High Cholesterol: No Congestive Heart Failure: No Dementia: Yes Diabetes: No Diminished Hearing: Yes Glaucoma: No Hepatitis: No Hiatal Hernia: Yes Heparin Induced Thrombocytopen: No Hypertension: No Psychiatric: No Respiratory: No Myocardial Infarction: Yes Thyroid Disease: No Past Surgical History Abdominal Surgery: Yes (lih repair) Cholecystectomy: Yes Coronary Artery Bypass Graft: No Pacemaker: No Other Surgery: Yes (hernia repair) Family History Family Myocardial Infarction: Yes Social History Alcohol Use: No Tobacco Use: No Substance Use: No Allergies-Medications (Allergen,Severity, Reaction): Coded Allergies: codeine (Unverified Allergy, Severe, nausea and vomiting, 03/12/17) Sulfa (Sulfonamide Antibiotics) (Unverified Allergy, Mild, Anaphylaxis, ) penicillin G (Unverified Allergy, Mild, Anaphylaxis, 03/12/17) Reported Meds & Prescriptions Reported Meds & Active Scripts Active Seroquel (Quetiapine Fumarate) 25 Mg Tab 37.5 Mg PO BID 15 Days Gnp Vitamin D3 Extra Stre (Cholecalciferol) 1,000 Unit Tab 1,000 Units PO DAILY 15 Days Atorvastatin (Atorvastatin Calcium) 40 Mg Tab 40 Mg PO HS 15 Days Omeprazole 20 Mg Tab 20 Mg PO DAILY 15 Days Review of Systems General / Constitutional: No: Fever Eyes: No: Visual changes HENT: No: Headaches Cardiovascular: No: Chest Pain or Discomfort Respiratory: No: Shortness of Breath Gastrointestinal: No: Abdominal Pain Genitourinary: No: Dysuria Musculoskeletal: No: Pain Skin: Positive Rash, Positive Itching Neurologic: No: Weakness Psychiatric: No: Depression Endocrine: No: Polydipsia Hematologic/Lymphatic: No: Easy Bruising Physical Exam Narrative GENERAL: Well-nourished, well-developed patient. SKIN: Focused skin assessment warm/dry. Mild diffuse maculopapular rash on bilateral lower extremity. No redness no heat noted. HEAD: Normocephalic. EYES: No scleral icterus. No injection or drainage. NECK: Supple, trachea midline. No JVD or lymphadenopathy. CARDIOVASCULAR: Regular rate and rhythm without murmurs, gallops, or rubs. RESPIRATORY: Breath sounds equal bilaterally. No accessory muscle use. GASTROINTESTINAL: Abdomen soft, non-tender, nondistended. MUSCULOSKELETAL: No cyanosis, or edema. BACK: Nontender without obvious deformity. No CVA tenderness. Neurologic exam: Patient's awake and alert. Patient moves all extremities well. No obvious focal neurological deficit. Data Data Last Documented VS Vital Signs Date Time Temp Pulse Resp B/P (MAP) Pulse Ox O2 Delivery O2 Flow Rate FiO2 03/12/17 14:16 97.8 74 16 116/61 (79) 96 Room Air Orders Orders Complete Blood Count With Diff (03/12/17 14:41) Comprehensive Metabolic Panel (03/12/17 14:41) Urinalysis - C+S If Indicated (03/12/17 14:41) Psych Screen (03/12/17 14:41) Spine, Cervical - Ltd (Ap&Lat) (03/12/17 14:41) Admit Order (Ed Use Only) (03/12/17 16:29) Triamcinolone 0.1% Cream (Aristocort 0.1 (03/12/17 21:00) Cetirizine (Zyrtec) (03/13/17 09:00) Labs Laboratory Tests Test 03/12/17 15:00 03/12/17 15:30 Urine Color YELLOW Urine Turbidity CLEAR Urine pH 5.5 Urine Specific [place] 1.027 Urine Protein TRACE mg/dL Urine Glucose (UA) NEG mg/dL Urine Ketones NEG mg/dL Urine Occult Blood NEG Urine Nitrite NEG Urine Bilirubin NEG Urine Urobilinogen 2.0 MG/DL Urine Leukocyte Esterase NEG Urine RBC LESS THAN 1 /hpf Urine WBC 1 /hpf Urine Mucus MANY /lpf Microscopic Urinalysis Comment CULT NOT INDICATED White Blood Count 8.2 TH/MM3 Red Blood Count 4.08 MIL/MM3 Hemoglobin 12.8 GM/DL Hematocrit 36.8 % Mean Corpuscular Volume 90.2 FL Mean Corpuscular Hemoglobin 31.4 PG Mean Corpuscular Hemoglobin Concent 34.8 % Red Cell Distribution Width 13.0 % Platelet Count 202 TH/MM3 Mean Platelet Volume 7.1 FL Neutrophils (%) (Auto) 66.3 % Lymphocytes (%) (Auto) 17.0 % Monocytes (%) (Auto) 8.4 % Eosinophils (%) (Auto) 7.0 % Basophils (%) (Auto) 1.3 % Neutrophils # (Auto) 5.5 TH/MM3 Lymphocytes # (Auto) 1.4 TH/MM3 Monocytes # (Auto) 0.7 TH/MM3 Eosinophils # (Auto) 0.6 TH/MM3 Basophils # (Auto) 0.1 TH/MM3 CBC Comment DIFF FINAL Differential Comment Blood Urea Nitrogen 23 MG/DL Creatinine 1.47 MG/DL Random Glucose 112 MG/DL Total Protein 7.5 GM/DL Albumin 3.4 GM/DL Calcium Level 8.5 MG/DL Alkaline Phosphatase 86 U/L Aspartate Amino Transf (AST/SGOT) 30 U/L Alanine Aminotransferase (ALT/SGPT) 36 U/L Total Bilirubin 0.7 MG/DL Sodium Level 141 MEQ/L Potassium Level 4.2 MEQ/L Chloride Level 108 MEQ/L Carbon Dioxide Level 26.7 MEQ/L Anion Gap 6 MEQ/L Estimat Glomerular Filtration Rate 46 ML/MIN [facility] Medical Decision Making Medical Screen Exam Complete: Yes Emergency Medical Condition: Yes Differential Diagnosis Differential diagnosis including dementia, Alzheimer's. Contact dermatitis versus venous stasis dermatitis. Narrative Course 81-year-old male tried to escape from local residential facility. History of Alzheimer and dementia. Patient is medically cleared for psychiatric evaluation and disposition. Dr. Pedro came to see the patient and admit patient to psych Diagnosis Primary Impression: Dementia Qualified Codes: F03.91 - Unspecified dementia with behavioral disturbance Additional Impression: Contact dermatitis Frantz Naranjo MD Mar 12, 2017 15:39
[2017-03-12 15:47] LABS: AUTOMATED NEUTROPHIL # 5.5 TH/MM3 (1.8-7.7); BASOPHIL # 0.1 TH/MM3 (0-0.2); BASOPHIL % 1.3 % (0.0-2.0); EOSINOPHIL # 0.6 TH/MM3 (0-0.4); HEMATOCRIT 36.8 % (39.0-51.0); HEMOGLOBIN 12.8 GM/DL (13.0-17.0); LYMPHOCYTE # 1.4 TH/MM3 (1.0-4.8); MEAN CELL VOLUME 90.2 FL (80.0-100.0); MEAN CORPUSCULAR HEMOGLOBIN 31.4 PG (27.0-34.0); MEAN CORPUSCULAR HGB CONC 34.8 % (32.0-36.0); MEAN PLATELET VOLUME 7.1 FL (7.0-11.0); MONO % 8.4 % (0.0-8.0); MONOCYTE # 0.7 TH/MM3 (0-0.9); NEUT % 66.3 % (16.0-70.0); PLATELET COUNT 202 TH/MM3 (150-450); RED BLOOD COUNT 4.08 MIL/MM3 (4.50-5.90); WHITE BLOOD COUNT 8.2 TH/MM3 (4.0-11.0)
--- NOTE | 2017-03-12 15:49 | RADRPT ---
EXAM DATE/TIME: 03/12/2017 15:04 [facility] COMPARISON: No previous studies available for comparison. INDICATIONS : Neck pain. MEDICAL HISTORY : None. SURGICAL HISTORY : None. ENCOUNTER: Initial ACUITY: 1 day PAIN SCORE: 5/10 LOCATION: Cervical spine FINDINGS: Vertebral body heights are intact. Size alignment is maintained. Multilevel degenerative spondylosis of the cervical spine most prominently at C4-7 with disc space narrowing, osteophyte formation and en dplate sclerosis. The facets are normally aligned. The dens is intact. There is a normal C1-2 relatio nship. There is no significant prevertebral soft tissue swelling. CONCLUSION: 1. No acute fracture or subluxation. 2. Multilevel degenerative spondylosis of the cervical spine most prominently at C4-7. Alberto Yu MD on March 12, 2017 at 15:41 Board Certified Radiologist. This report was verified electronically.
[2017-03-12 16:18] LABS: ALBUMIN 3.4 GM/DL (3.4-5.0); AST (GOT) 30 U/L (15-37); BICARBONATE 26.7 MEQ/L (21.0-32.0); BLOOD UREA NITROGEN 23 MG/DL (7-18); CALCIUM 8.5 MG/DL (8.5-10.1); CHLORIDE 108 MEQ/L (98-107); CREATININE 1.47 MG/DL (0.60-1.30); GLOMERULAR FILTRATION RATE 46 ML/MIN (>89); GLUCOSE,RANDOM 112 MG/DL (74-106); SODIUM (NA) 141 MEQ/L (136-145)
[2017-03-12 16:20] LABS: ALT (GPT) 36 U/L (12-78)
[2017-03-12 16:22] LABS: ALKALINE PHOSPHATASE 86 U/L (45-117); TOTAL BILIRUBIN ADULT 0.7 MG/DL (0.2-1.0); TOTAL PROTEIN 7.5 GM/DL (6.4-8.2)
[2017-03-12] MEDS ORDERED: ACETAMINOPHEN 325 MG TAB PO PRN (16:30)
[2017-03-12] MEDS ORDERED: LORazepam 1 MG TAB PO PRN (16:30)
[2017-03-12] MEDS ORDERED: ALUMINUM/MAGNESIUM/SIMETH 30 ML CUP PO PRN (16:30)
--- NOTE | 2017-03-12 17:21 | HHI.HP ---
Provisional Diagnosis Admission Date Mar 12, 2017 at 16:31 [place] I. Dementia with behavioral disturbance Certification of Person's Competence To Provide Express and Informed Consent I have personally examined Santi Meadows , a person being served at [facility] on, Mar 12, 2017 16:58. Express and informed consent means consent voluntarily given in writing, by a competent person, after sufficient explanation and disclosure of the subject matter involved to enable the person to make a knowing and willful decision without any element of force, fraud, deceit, duress, or other form of constraint or coercion. This person is 18 years of age or older, is not now known to be incompetent to consent to treatment with a guardian advocate, and does not have a health care surrogate or proxy currently making medical treatment decisions. I have found this person to be one of the following: [] Competent to provide express and informed consent, as defined above, for voluntary admission to this facility and is competent to provide express and informed consent for treatment. He/she has the consistent capacity to make well reasoned, willful, and knowing decisions concerning his or her medical or mental health treatment. The person fully and consistently understands the purpose of the admission for examination/placement and is fully capable of personally exercising all rights assured [place] [X] Incompetent to provide express and informed consent to voluntary admission, and this is incompetent to provide express and informed consent to treatment. The person must be transferred to involuntary status and a petition for a guardian advocate filed with the Circuit Court. [] Refusing to provide express and informed consent to voluntary admission but is competent to provide express and informed consent for treatment. The person must be discharged or transferred to involuntary status. Form shall be completed within 24 hours of a person's arrival at the receiving facility and filed in the clinical record of each person: 1. Admitted on a voluntary basis 2. Permitted to provide express and informed consent to his/her own treatment 3. Allowed to transfer from involuntary to voluntary status 4. Prior to permitting a person to consent to his or her own treatment after having been previously found incompetent to consent to treatment. History of Present Illness Capacity: Lacks Capacity HPI 81-year-old male Arpita acted by this physician for eloping from his halfway facility today, climbing a tree and over a fence in an attempt to "escape". Patient was recently admitted to [facility] for similar behaviors. He has a 2+ year history of diagnosed dementia. He has become increasingly confused, disoriented, agitated and even combative. On his last admission, he had apparently packed a suitcase, taken his 's car, driven to [place] and attempted to board a plane for [place]. The is unable to handle the patient and the patient has been both verbally threatening to her and physically aggressive towards her. At the present time, the patient continues to be verbally threatening towards his . She would like to take him home but apparently he eloped from their home more than 6 times prior to his last psychiatric hospitalization. At this time, the patient is trying to tell this physician directions for his physical care. The patient is alert and oriented to person only. He is not oriented to time, place or situation. He reportedly does not recall climbing a tree, crossing over a fence, and attempting to leave the intermediate. There is some history that he may have not been wearing a monitor that he was supposed to be wearing. He does not know the medicines he is supposed to be taking and many of them are nonpsychiatric. He is obviously unable to care for himself and continues to engage in dangerous behavior. Finally, patient does have symptoms of paranoia, primarily directed towards his . Review of Systems ROS Limitations: Clinical Condition Except as stated in HPI: all other systems reviewed are Neg Past Psych History Psychological trauma history No known psychological trauma. Violence risk - others (6 mos) High Violence risk - self (6 mos) High Substance Abuse History Drugs/Alcohol past 12 months Denied by . Past Family Social History Coded Allergies: codeine (Unverified Allergy, Severe, nausea and vomiting, 03/12/17) Sulfa (Sulfonamide Antibiotics) (Unverified Allergy, Mild, Anaphylaxis, ) penicillin G (Unverified Allergy, Mild, Anaphylaxis, 03/12/17) Active Scripts Quetiapine (Seroquel) 25 Mg Tab, 37.5 MG PO BID for Mental Health for 15 Days, # 45 TAB 1 Refill Prov:Luis Fernando Brown MD 03/10/17 Cholecalciferol (Gnp Vitamin D3 Extra Stre) 1,000 Unit Tab, 1000 UNITS PO DAILY for Vitamin D supplement for 15 Days, TAB 1 Refill Prov:Luis Fernando Brown MD 03/10/17 Atorvastatin (Atorvastatin) 40 Mg Tab, 40 MG PO HS for Cholesterol Management for 15 Days, TAB 1 Refill Prov:Luis Fernando Brown MD 03/10/17 Omeprazole (Omeprazole) 20 Mg Tab, 20 MG PO DAILY for Health for 15 Days, #15 TAB 1 Refill Prov:Luis Fernando Brown MD 03/10/17 Discontinued Reported Medications Memantine Er (Namenda Xr) 28 Mg Caper, 28 MG PO DAILY for Alzheimer Disease, # 30 CAP 0 Refills 02/27/17 Current Medications Medications (Trade) Dose Ordered Sig/Conor Route Start Time Stop Time Status Last Admin (Aristocort 0.1% Cream) 1 applic BID TOPICAL 03/12/17 21:00 (ZyrTEC) 10 mg DAILY PO 03/13/17 09:00 (Ativan) 1 mg Q6H PRN PO 03/12/17 16:30 UNV (Tylenol) 650 mg Q4H PRN PO 03/12/17 16:30 UNV (Milk Of Magnesia Liq) 30 ml DAILY PRN PO 03/12/17 16:30 UNV (Mag-Al Plus Susp Liq) 30 ml Q6H PRN PO 03/12/17 16:30 UNV (Lipitor) 40 mg HS PO 03/12/17 21:00 UNV (Vitamin D3) 1,000 units DAILY PO 03/13/17 09:00 UNV Non-Formulary Medication 20 mg DAILY PO 03/13/17 09:00 UNV Family Psych History No known psychiatric history prior to his last hospitalization at [facility]. Social History Patient obviously unable to work due to dementia. Does apparently have a supportive family although they are arguing over whether he can reside at home with his or whether he needs some type of locked dementia unit. Patient does not have a history of alcoholism or substance abuse. Prior to his previous admission, he was noncompliant with his medications. Patient's Strengths (min. 2) Supportive family and has access to healthcare. Physical Exam GENERAL: SKIN: Warm and dry. HEAD: Normocephalic. EYES: No scleral icterus. No injection or drainage. NECK: Supple, trachea midline. No JVD or lymphadenopathy. CARDIOVASCULAR: Regular rate and rhythm without murmurs, gallops, or rubs. RESPIRATORY: Breath sounds equal bilaterally. No accessory muscle use. GASTROINTESTINAL: Abdomen soft, non-tender, nondistended. MUSCULOSKELETAL: No cyanosis, or edema. BACK: Nontender without obvious deformity. No CVA tenderness. Vital Signs Vital Signs Date Time Temp Pulse Resp B/P (MAP) Pulse Ox O2 Delivery O2 Flow Rate FiO2 03/12/17 14:16 97.8 74 16 116/61 (79) 96 Room Air Lab Results Test 03/12/17 15:00 03/12/17 15:30 Urine Color YELLOW Urine Turbidity CLEAR Urine pH 5.5 Urine Specific [place] 1.027 Urine Protein TRACE mg/dL Urine Glucose (UA) NEG mg/dL Urine Ketones NEG mg/dL Urine Occult Blood NEG Urine Nitrite NEG Urine Bilirubin NEG Urine Urobilinogen 2.0 MG/DL Urine Leukocyte Esterase NEG Urine RBC LESS THAN 1 /hpf Urine WBC 1 /hpf Urine Mucus MANY /lpf Microscopic Urinalysis Comment CULT NOT INDICATED White Blood Count 8.2 TH/MM3 Red Blood Count 4.08 MIL/MM3 Hemoglobin 12.8 GM/DL Hematocrit 36.8 % Mean Corpuscular Volume 90.2 FL Mean Corpuscular Hemoglobin 31.4 PG Mean Corpuscular Hemoglobin Concent 34.8 % Red Cell Distribution Width 13.0 % Platelet Count 202 TH/MM3 Mean Platelet Volume 7.1 FL Neutrophils (%) (Auto) 66.3 % Lymphocytes (%) (Auto) 17.0 % Monocytes (%) (Auto) 8.4 % Eosinophils (%) (Auto) 7.0 % Basophils (%) (Auto) 1.3 % Neutrophils # (Auto) 5.5 TH/MM3 Lymphocytes # (Auto) 1.4 TH/MM3 Monocytes # (Auto) 0.7 TH/MM3 Eosinophils # (Auto) 0.6 TH/MM3 Basophils # (Auto) 0.1 TH/MM3 CBC Comment DIFF FINAL Differential Comment Blood Urea Nitrogen 23 MG/DL Creatinine 1.47 MG/DL Random Glucose 112 MG/DL Total Protein 7.5 GM/DL Albumin 3.4 GM/DL Calcium Level 8.5 MG/DL Alkaline Phosphatase 86 U/L Aspartate Amino Transf (AST/SGOT) 30 U/L Alanine Aminotransferase (ALT/SGPT) 36 U/L Total Bilirubin 0.7 MG/DL Sodium Level 141 MEQ/L Potassium Level 4.2 MEQ/L Chloride Level 108 MEQ/L Carbon Dioxide Level 26.7 MEQ/L Anion Gap 6 MEQ/L Estimat Glomerular Filtration Rate 46 ML/MIN Mental Status Examination Appearance: Disheveled Consciousness: Alert Orientation: Person Motor Activity: Abnormal gait Speech: Incoherent Language: Perseveration Fund of Knowledge: Inadequate Attention and Concentration: Inadequate Memory: Impaired Mood: Oppositional Affect: Labile Thought Process & Associations: Intact Thought Content: Preoccupations, Delusional Hallucination Type: None Delusion Type: Paranoid Suicidal Ideation: No Suicidal Plan: No Suicidal Intention: No Homicidal Ideation: No Homicidal Plan: No Homicidal Intention: No Insight: Poor Judgment: Poor Assessment & Plan Problem List: (1) Dementia in other diseases classified elsewhere with behavioral disturbance ICD Codes: F02.81 - Dementia in other diseases classified elsewhere with behavioral disturbance (2) Alzheimer's dementia with behavioral disturbance ICD Codes: G30.9 - Alzheimer's disease, unspecified; F02.81 - Dementia in other diseases classified elsewhere with behavioral disturbance Assessment & Plan Estimated LOS: days. 81-year-old male with obvious dementia and behavioral disturbance, Palm acted by this physician for dangerousness to self, dangerousness towards , and inability to care for self. Patient is felt to be at high risk for self harm, harm to others and inability to care for self. He is climbing trees to escape, driving cars, physically aggressive towards his , etc. He is refusing to take his nonpsychiatric medications. He is cognitively impaired and poorly redirectable. For this reason he is being admitted for further evaluation and treatment. This physician has ordered a CBC and comprehensive metabolic panel to determine if any recent infectious process or metabolic process he is causing or contributing to the patient's confusion and agitation. I am also ordering thyroid stimulating hormone, vitamin B-12 and vitamin D levels, to determine if deficiencies in these areas is causing or contributing to the patient's confusion and inappropriate behavior. He will receive an EKG prior to substantial change his of his psychotropic medicines, as antipsychotics have a greater mortality rate in elderly demented patients and may adversely affect the electrical system of his heart. This physician spoke with the patient's nurse regarding his recent behavior. Lastly, case management will also be involved and information gathering and disposition planning. Mayco Pedro MD Mar 12, 2017 17:21
[2017-03-12] MEDS ORDERED: diphenhydrAMINE HCL 25 MG CAP PO PRN (18:00)
--- NOTE | 2017-03-12 18:03 | PD.CONS ---
[facility] Request[facility] By Primary Care Physician Roberto Alatorre MD Diagnoses: History of Present Illness History from patient, ER physician, patient's at the bedside, and review of medical records. Patient's extreme a poor historian. He would answer yes or no questions. But he is quite paranoid. He wanted to dress up and go back home. The patient escaped from his current snf. Brought under [place] act. Patient was recently admitted to our hospital and has been in the snf only for a few days. Since being in the snf, patient states he started having pain and itching in his bilateral lower extremities. also reported that patient has had headaches since February 26, 2017 admission and the CAT scan at that time was normal. Personally reviewed. However stated the patient was continuing to have headaches which was concerning to her. Patient has no prior history of migraines. She also thought that patient was having cold and chills. usually has constipation and takes milk of mag bilateral LE skin rash No other symptoms according to the Review of Systems ROS Limitations: Altered Mental Status, Poor Historian Past Family Social History Allergies: Coded Allergies: codeine (Unverified Allergy, Severe, nausea and vomiting, 03/12/17) Sulfa (Sulfonamide Antibiotics) (Unverified Allergy, Mild, Anaphylaxis, ) penicillin G (Unverified Allergy, Mild, Anaphylaxis, 03/12/17) Past Medical History cad- s/p stent - 3.5yrs ago kidney cyst BPH Alzeimers dx - diagnosed 2 yrs ago and had episodes of leaving home skin cancer - sq cell Past Surgical History skin cancer removal cardiac stents Family History brother- late 80s from metatstatic cancer Social History social drinker while young quit smoking 40yrs ago no drugs Physical Exam Vital Signs Vital Signs Date Time Temp Pulse Resp B/P (MAP) Pulse Ox O2 Delivery O2 Flow Rate FiO2 03/12/17 14:16 97.8 74 16 116/61 (79) 96 Room Air Physical Exam GENERAL: This is a gentleman, looks quite confused. Not in distress. Sitting up in bed. at the bedside. SKIN: No rashes, ecchymoses or lesions. Cool and dry. HEAD: Atraumatic. Normocephalic. No temporal or scalp tenderness. EYES: . No scleral icterus. No injection or drainage. ENT: Nose without bleeding, purulent drainage or septal hematoma. Airway patent. NECK: Trachea midline. No JVD CARDIOVASCULAR: Regular rate and rhythm without murmurs, gallops, or rubs. RESPIRATORY: Clear to auscultation. Breath sounds equal bilaterally. No wheezes , rales, or rhonchi. GASTROINTESTINAL: Abdomen soft, non-tender, nondistended. No guarding. MUSCULOSKELETAL: Extremities without clubbing, cyanosis, or edema.. No calf tenderness. NEUROLOGICAL: Awake and alert. Motor and sensory grossly within normal limits. Normal speech Laboratory Laboratory Tests Test 03/12/17 15:00 03/12/17 15:30 Urine Color YELLOW Urine Turbidity CLEAR Urine pH 5.5 Urine Specific [place] 1.027 Urine Protein TRACE Urine Glucose (UA) NEG Urine Ketones NEG Urine Occult Blood NEG Urine Nitrite NEG Urine Bilirubin NEG Urine Urobilinogen 2.0 Urine Leukocyte Esterase NEG Urine RBC LESS THAN 1 Urine WBC 1 Urine Mucus MANY Microscopic Urinalysis Comment CULT NOT INDICATED White Blood Count 8.2 Red Blood Count 4.08 Hemoglobin 12.8 Hematocrit 36.8 Mean Corpuscular Volume 90.2 Mean Corpuscular Hemoglobin 31.4 Mean Corpuscular Hemoglobin Concent 34.8 Red Cell Distribution Width 13.0 Platelet Count 202 Mean Platelet Volume 7.1 Neutrophils (%) (Auto) 66.3 Lymphocytes (%) (Auto) 17.0 Monocytes (%) (Auto) 8.4 Eosinophils (%) (Auto) 7.0 Basophils (%) (Auto) 1.3 Neutrophils # (Auto) 5.5 Lymphocytes # (Auto) 1.4 Monocytes # (Auto) 0.7 Eosinophils # (Auto) 0.6 Basophils # (Auto) 0.1 CBC Comment DIFF FINAL Differential Comment Blood Urea Nitrogen 23 Creatinine 1.47 Random Glucose 112 Total Protein 7.5 Albumin 3.4 Calcium Level 8.5 Alkaline Phosphatase 86 Aspartate Amino Transf (AST/SGOT) 30 Alanine Aminotransferase (ALT/SGPT) 36 Total Bilirubin 0.7 Sodium Level 141 Potassium Level 4.2 Chloride Level 108 Carbon Dioxide Level 26.7 Anion Gap 6 Estimat Glomerular Filtration Rate 46 Result Diagram: 03/12/17 1530 03/12/17 1530 Imaging Last 48 hours Impressions Cervical Spine X-Ray 03/12/17 1441 Signed Impressions: Service Date/Time: February 15:04 - CONCLUSION: 1. No acute fracture or subluxation. 2. Multilevel degenerative spondylosis of the cervical spine most prominently at C4-7. Alberto Yu MD Lower Extremity Ultrasound 03/12/17 0000 Signed Impressions: Service Date/Time: February 18:48 - CONCLUSION: Normal examination. Mark Schafer MD Assessment and Plan Assessment and Plan Impression: headaches bilateral LE swelling and itching cad- s/p stent - 3.5yrs ago kidney cyst BPH Alzeimers dx - diagnosed 2 yrs ago and had episodes of leaving home skin cancer - sq cell Plan: US of LE CT 02/16/17 no acute issues pain control for headaches will follow up pt is admitted to psychiatry benadryl prn for itching if fever or redness, will consider antibiotics dvt prophylaxis with ambulation Discussed Condition With patient, , ER Garett Chester MD Mar 12, 2017 18:03
[2017-03-12] MEDS ORDERED: diphenhydrAMINE HCL 2%/ZINC ACETATE 0.1% CREAM 30 APPLIC/30 GM TUBE TOPICAL PRN (18:15)
[2017-03-12] MEDS: MAGNESIUM HYDROXIDE SUSP 30 ML CUP PO PRN (18:42)
[2017-03-12 18:46] VITALS: BP 146/86; PULSE 65; RESP 18; TEMP 97.7; O2SAT 96
--- NOTE | 2017-03-12 19:48 | RADRPT ---
EXAM DATE/TIME: 03/12/2017 18:48 [place] COMPARISON: No previous studies available for comparison. INDICATIONS : Bilateral leg swelling. MEDICAL HISTORY : Alzheimer's. Dementia. Myocardial infarction. Hearing loss. Hiatal hernia. BPH. SURGICAL HISTORY : Cholecystectomy.Inguinal hernia repair. Coronary artery stent.Skin cancer removal. ENCOUNTER: Initial ACUITY: 1 day PAIN SCORE: 2/10 LOCATION: Bilateral legs. TECHNIQUE: Venous ultrasound of the left and right leg was performed from the inguinal ligament to the proximal calf. Real-time, color Doppler and spectral tracing, compression and augmentation techniques were us ed. FINDINGS: RIGHT LEG: There is normal compressibility of the deep venous system from the inguinal region to the proximal ca lf. No echogenic clot is seen in the lumen of the common femoral, femoral, popliteal, and posterior tibial veins. There is a normal response of the venous system to proximal and distal augmentation an d respiration. LEFT LEG: There is normal compressibility of the deep venous system from the inguinal region to the proximal ca lf. No echogenic clot is seen in the lumen of the common femoral, femoral, popliteal, and posterior tibial veins. There is a normal response of the venous system to proximal and distal augmentation an d respiration. CONCLUSION: Normal examination. Mark Schafer MD on March 12, 2017 at 19:45 Board Certified Radiologist. This report was verified electronically.
[2017-03-12] MEDS: TRIAMCINOLONE ACETONIDE 0.1% CREAM 15 GM TOPICAL SCH (20:46)
[2017-03-12] MEDS: ATORVASTATIN 40 MG TAB PO SCH (20:46)
[2017-03-13 05:54] VITALS: BP 147/71; PULSE 60; RESP 18; TEMP 98; O2SAT 94
[2017-03-13] MEDS: PANTOPRAZOLE SOD 20 MG DELAYED RELEASE TAB PO SCH (06:24)
[2017-03-13 08:10] LABS: AUTOMATED NEUTROPHIL # 4.7 TH/MM3 (1.8-7.7); BASOPHIL # 0.1 TH/MM3 (0-0.2); BASOPHIL % 0.9 % (0.0-2.0); EOSINOPHIL # 0.6 TH/MM3 (0-0.4); EOSINOPHIL % 7.5 % (0.0-4.0); HEMATOCRIT 38.5 % (39.0-51.0); HEMOGLOBIN 13.5 GM/DL (13.0-17.0); LYMPH % 18.3 % (9.0-44.0); LYMPHOCYTE # 1.3 TH/MM3 (1.0-4.8); MEAN CELL VOLUME 89.2 FL (80.0-100.0); MEAN CORPUSCULAR HEMOGLOBIN 31.2 PG (27.0-34.0); MEAN PLATELET VOLUME 6.9 FL (7.0-11.0); MONO % 8.5 % (0.0-8.0); MONOCYTE # 0.6 TH/MM3 (0-0.9); NEUT % 64.8 % (16.0-70.0); PLATELET COUNT 209 TH/MM3 (150-450); RED BLOOD COUNT 4.32 MIL/MM3 (4.50-5.90); RED CELL DISTRIBUTION WIDTH 12.6 % (11.6-17.2); WHITE BLOOD COUNT 7.3 TH/MM3 (4.0-11.0)
[2017-03-13] MEDS: CETIRIZINE HCL 10 MG TAB PO SCH (08:20)
[2017-03-13] MEDS: TRIAMCINOLONE ACETONIDE 0.1% CREAM 15 GM TOPICAL SCH ×2 (08:20→20:49)
[2017-03-13] MEDS: CHOLECALCIFEROL (VIT D3) 1000 UNIT TAB PO SCH (08:20)
[2017-03-13 08:34] LABS: ALBUMIN 3.4 GM/DL (3.4-5.0); AST (GOT) 27 U/L (15-37); BICARBONATE 27.1 MEQ/L (21.0-32.0); BLOOD UREA NITROGEN 21 MG/DL (7-18); CALCIUM 8.8 MG/DL (8.5-10.1); CHLORIDE 108 MEQ/L (98-107); CREATININE 1.29 MG/DL (0.60-1.30); GLOMERULAR FILTRATION RATE 54 ML/MIN (>89); GLUCOSE,RANDOM 108 MG/DL (74-106); SODIUM (NA) 141 MEQ/L (136-145)
[2017-03-13 08:35] LABS: CHOLESTEROL 88 MG/DL (120-200); TRIGLYCERIDES 72 MG/DL (42-150)
[2017-03-13 09:01] LABS: ALKALINE PHOSPHATASE 82 U/L (45-117); ALT (GPT) 31 U/L (12-78); CHOLESTEROL/ HDL RATIO 2.92 RATIO; HDL CHOLESTEROL 30.1 MG/DL (40.0-60.0); LDL CHOLESTEROL 44 MG/DL (0-99); TOTAL BILIRUBIN ADULT 0.9 MG/DL (0.2-1.0); TOTAL PROTEIN 7.3 GM/DL (6.4-8.2)
--- NOTE | 2017-03-13 10:01 | HHI.PR ---
Subjective Remarks No new complaints Refusing to take his medications Seen with RN in attendance Allowed me to do a full physical exam at least Objective Vitals Vital Signs Date Time Temp Pulse Resp B/P (MAP) Pulse Ox O2 Delivery O2 Flow Rate FiO2 03/13/17 05:54 98.0 60 18 147/71 (96) 94 03/12/17 18:46 97.7 65 18 146/86 (106) 96 03/12/17 18:27 (79) 03/12/17 14:16 97.8 74 16 116/61 (79) 96 Room Air I/O 03/12/17 03/12/17 03/12/17 03/13/17 03/13/17 03/13/17 07:00 15:00 23:00 07:00 15:00 23:00 Intake Total 120 ml 0 ml Balance 120 ml 0 ml Intake Oral 120 ml 0 ml # Voids 2 Result Diagram: 03/13/17 0750 03/13/17 0750 Other Results Laboratory Tests Test 03/12/17 15:00 03/12/17 15:30 03/13/17 07:50 Urine Color YELLOW Urine Turbidity CLEAR Urine pH 5.5 Urine Specific [place] 1.027 Urine Protein TRACE mg/dL Urine Glucose (UA) NEG mg/dL Urine Ketones NEG mg/dL Urine Occult Blood NEG Urine Nitrite NEG Urine Bilirubin NEG Urine Urobilinogen 2.0 MG/DL Urine Leukocyte Esterase NEG Urine RBC LESS THAN 1 /hpf Urine WBC 1 /hpf Urine Mucus MANY /lpf Microscopic Urinalysis Comment CULT NOT INDICATED White Blood Count 8.2 TH/MM3 7.3 TH/MM3 Red Blood Count 4.08 MIL/MM3 4.32 MIL/MM3 Hemoglobin 12.8 GM/DL 13.5 GM/DL Hematocrit 36.8 % 38.5 % Mean Corpuscular Volume 90.2 FL 89.2 FL Mean Corpuscular Hemoglobin 31.4 PG 31.2 PG Mean Corpuscular Hemoglobin Concent 34.8 % 35.0 % Red Cell Distribution Width 13.0 % 12.6 % Platelet Count 202 TH/MM3 209 TH/MM3 Mean Platelet Volume 7.1 FL 6.9 FL Neutrophils (%) (Auto) 66.3 % 64.8 % Lymphocytes (%) (Auto) 17.0 % 18.3 % Monocytes (%) (Auto) 8.4 % 8.5 % Eosinophils (%) (Auto) 7.0 % 7.5 % Basophils (%) (Auto) 1.3 % 0.9 % Neutrophils # (Auto) 5.5 TH/MM3 4.7 TH/MM3 Lymphocytes # (Auto) 1.4 TH/MM3 1.3 TH/MM3 Monocytes # (Auto) 0.7 TH/MM3 0.6 TH/MM3 Eosinophils # (Auto) 0.6 TH/MM3 0.6 TH/MM3 Basophils # (Auto) 0.1 TH/MM3 0.1 TH/MM3 CBC Comment DIFF FINAL DIFF FINAL Differential Comment Blood Urea Nitrogen 23 MG/DL 21 MG/DL Creatinine 1.47 MG/DL 1.29 MG/DL Random Glucose 112 MG/DL 108 MG/DL Total Protein 7.5 GM/DL 7.3 GM/DL Albumin 3.4 GM/DL 3.4 GM/DL Calcium Level 8.5 MG/DL 8.8 MG/DL Alkaline Phosphatase 86 U/L 82 U/L Aspartate Amino Transf (AST/SGOT) 30 U/L 27 U/L Alanine Aminotransferase (ALT/SGPT) 36 U/L 31 U/L Total Bilirubin 0.7 MG/DL 0.9 MG/DL Sodium Level 141 MEQ/L 141 MEQ/L Potassium Level 4.2 MEQ/L 3.8 MEQ/L Chloride Level 108 MEQ/L 108 MEQ/L Carbon Dioxide Level 26.7 MEQ/L 27.1 MEQ/L Anion Gap 6 MEQ/L 6 MEQ/L Estimat Glomerular Filtration Rate 46 ML/MIN 54 ML/MIN Triglycerides Level 72 MG/DL Cholesterol Level 88 MG/DL LDL Cholesterol 44 MG/DL HDL Cholesterol 30.1 MG/DL Cholesterol/HDL Ratio 2.92 RATIO Vitamin B12 Level 273 PG/ML 25-Hydroxy Vitamin D Total 21.9 ng/ML Thyroid Stimulating Hormone 3rd Gen 1.540 uIU/ML Imaging Last Impressions Cervical Spine X-Ray 03/12/17 1441 Signed Impressions: Service Date/Time: February 15:04 - CONCLUSION: 1. No acute fracture or subluxation. 2. Multilevel degenerative spondylosis of the cervical spine most prominently at C4-7. Alberto Yu MD Lower Extremity Ultrasound 03/12/17 0000 Signed Impressions: Service Date/Time: February 18:48 - CONCLUSION: Normal examination. Mark Schafer MD Objective Remarks GENERAL: Awake and alert confused SKIN: Warm and dry. HEAD: Atraumatic. Normocephalic. EYES: Pupils equal and round. No scleral icterus. No injection or drainage. Extraocular muscles intact ENT: No nasal bleeding or discharge. Mucous membranes pink and moist. Tongue is midline NECK: Trachea midline. No JVD. Neck is supple CARDIOVASCULAR: Regular rate and rhythm. S1 and S2 no S3 or S4 RESPIRATORY: No accessory muscle use. Clear to auscultation. Breath sounds equal bilaterally. GASTROINTESTINAL: Abdomen soft, non-tender, nondistended. Hepatic and splenic margins not palpable. MUSCULOSKELETAL: Extremities without clubbing, cyanosis, or edema. No obvious deformities. NEUROLOGICAL: Awake and alert. No obvious cranial nerve deficits. Motor grossly within normal limits. Five out of 5 muscle strength in the arms and legs. Normal speech. PSYCHIATRIC: INAppropriate mood and affect; insight and judgment ABnormal. Medications and IVs Current Medications Triamcinolone Acetonide (Aristocort 0.1% Cream) 1 applic BID TOPICAL ; Start at 21:00 Cetirizine HCl (ZyrTEC) 10 mg DAILY PO ; Start 03/13/17 at 09:00 Lorazepam (Ativan) 1 mg Q6H PRN PO MODERATE TO SEVERE ANXIETY; Start 03/12/17 at 16:30 Acetaminophen (Tylenol) 650 mg Q4H PRN PO Pain 1-5 or Temp >101F Last administered on 03/12/17 18:39; Start 03/12/17 at 16:30 Magnesium Hydroxide (Milk Of Magnesia Liq) 30 ml DAILY PRN PO CONSTIPATION Last administered on 03/12/17 18:42; Start 03/12/17 at 16:30 Al Hydrox/Mg Hydrox/Simethicone (Mag-Al Plus Susp Liq) 30 ml Q6H PRN PO DYSPEPSIA; Start 03/12/17 at 16:30 Atorvastatin Calcium (Lipitor) 40 mg HS PO ; Start 03/12/17 at 21:00 Cholecalciferol (Vitamin D3) 1,000 units DAILY PO ; Start 03/13/17 at 09:00 Pantoprazole Sodium (Protonix) 20 mg DAILY@0600 PO Last administered on 06:24; Start 03/13/17 at 06:00 Diphenhydramine HCl (Benadryl) 25 mg Q6H PRN PO itching Last administered on t 18:40; Start 03/12/17 at 18:00 Diphenhydramine HCl (Benadryl 2% Cream) 1 applic TID PRN TOPICAL ITCHING; Start 03/12/17 at 18:15 A/P Assessment and Plan Impression: headaches bilateral LE swelling and itching negative scan for DVTs cad- s/p stent - 3.5yrs ago kidney cyst BPH Alzeimers dx - diagnosed 2 yrs ago and had episodes of leaving home skin cancer - sq cell Renal insufficiency probably chronic Plan: US of LE negative CT 02/16/17 no acute issues pain control for headaches will follow up pt is admitted to psychiatry benadryl prn for itching if fever or redness, will consider antibiotics --no fevers noted dvt prophylaxis with ambulation Tomas Rosenbaum DO Mar 13, 2017 10:01
--- NOTE | 2017-03-13 11:56 | PD.PSY.CON ---
Provisional Diagnosis Admission Date Mar 12, 2017 at 16:31 [place]. Dementia with behavioral disturbance History of Present Illness Service Psychiatry Consult Requested By Dr. Rowley Reason for Consult Second opinion Primary Care Physician Roberto Alatorre MD HPI 81-year-old male [place] acted by this physician for eloping from his custodial facility today, climbing a tree and over a fence in an attempt to "escape". Patient was recently admitted to [facility] for similar behaviors. He has a 2+ year history of diagnosed dementia. He has become increasingly confused, disoriented, agitated and even combative. On his last admission, he had apparently packed a suitcase, taken his 's car, driven to [place] and attempted to board a plane for [place]. The is unable to handle the patient and the patient has been both verbally threatening to her and physically aggressive towards her. At the present time, the patient continues to be verbally threatening towards his . She would like to take him home but apparently he eloped from their home more than 6 times prior to his last psychiatric hospitalization. At this time, the patient is trying to tell this physician directions for his physical care. The patient is alert and oriented to person only. He is not oriented to time, place or situation. He reportedly does not recall climbing a tree, crossing over a fence, and attempting to leave the [facility]. There is some history that he may have not been wearing a monitor that he was supposed to be wearing. He does not know the medicines he is supposed to be taking and many of them are nonpsychiatric. He is obviously unable to care for himself and continues to engage in dangerous behavior. Finally, patient does have symptoms of paranoia, primarily directed towards his . Patient was seen today for second opinion. The patient was found in his room, calm, superficially cooperative, looking out the window. Patient says that he is waiting his father his mother to come and pick him up and go back to [place]. Patient says that he is from [place] and his plan is going back there. Patient reports good mood, he denies suicidal and homicidal ideation, he denies visual and auditory hallucinations. No agitation or aggressive behavior noted or reported, patient is compliant with medications. Past Family Social History Coded Allergies: codeine (Unverified Allergy, Severe, nausea and vomiting, 03/12/17) Sulfa (Sulfonamide Antibiotics) (Unverified Allergy, Mild, Anaphylaxis, ) penicillin G (Unverified Allergy, Mild, Anaphylaxis, 03/12/17) Active Scripts Quetiapine (Seroquel) 25 Mg Tab, 37.5 MG PO BID for Mental Health for 15 Days, # 45 TAB 1 Refill Prov:Luis Fernando Brown MD 03/10/17 Cholecalciferol (Gnp Vitamin D3 Extra Stre) 1,000 Unit Tab, 1000 UNITS PO DAILY for Vitamin D supplement for 15 Days, TAB 1 Refill Prov:Luis Fernando Brown MD 03/10/17 Atorvastatin (Atorvastatin) 40 Mg Tab, 40 MG PO HS for Cholesterol Management for 15 Days, TAB 1 Refill Prov:Luis Fernando Brown MD 03/10/17 Omeprazole (Omeprazole) 20 Mg Tab, 20 MG PO DAILY for Health for 15 Days, #15 TAB 1 Refill Prov:Luis Fernando Brown MD 03/10/17 Discontinued Reported Medications Memantine Er (Namenda Xr) 28 Mg Caper, 28 MG PO DAILY for Alzheimer Disease, # 30 CAP 0 Refills 02/27/17 Current Medications Medications (Trade) Dose Ordered Sig/Conor Route Start Time Stop Time Status Last Admin (Aristocort 0.1% Cream) 1 applic BID TOPICAL 03/12/17 21:00 (ZyrTEC) 10 mg DAILY PO 03/13/17 09:00 (Ativan) 1 mg Q6H PRN PO 03/12/17 16:30 (Tylenol) 650 mg Q4H PRN PO 03/12/17 16:30 03/12/17 18:39 (Milk Of Magnesia Liq) 30 ml DAILY PRN PO 03/12/17 16:30 03/12/17 18:42 (Mag-Al Plus Susp Liq) 30 ml Q6H PRN PO 03/12/17 16:30 (Lipitor) 40 mg HS PO 03/12/17 21:00 (Vitamin D3) 1,000 units DAILY PO 03/13/17 09:00 (Protonix) 20 mg DAILY@0600 PO 03/13/17 06:00 03/13/17 06:24 (Benadryl) 25 mg Q6H PRN PO 03/12/17 18:00 03/12/17 18:40 (Benadryl 2% Cream) 1 applic TID PRN TOPICAL 03/12/17 18:15 Patient's Strengths (min. 2) Supportive family and has access to healthcare. Physical Exam Vital Signs Vital Signs Date Time Temp Pulse Resp B/P (MAP) Pulse Ox O2 Delivery O2 Flow Rate FiO2 03/13/17 05:54 98.0 60 18 147/71 (96) 94 03/12/17 14:16 Room Air I/O 03/13/17 03/13/17 03/14/17 08:00 16:00 00:00 Intake Total 0 ml Balance 0 ml Lab Results Test 03/12/17 15:00 03/12/17 15:30 03/13/17 07:50 Urine Color YELLOW Urine Turbidity CLEAR Urine pH 5.5 Urine Specific [place] 1.027 Urine Protein TRACE mg/dL Urine Glucose (UA) NEG mg/dL Urine Ketones NEG mg/dL Urine Occult Blood NEG Urine Nitrite NEG Urine Bilirubin NEG Urine Urobilinogen 2.0 MG/DL Urine Leukocyte Esterase NEG Urine RBC LESS THAN 1 /hpf Urine WBC 1 /hpf Urine Mucus MANY /lpf Microscopic Urinalysis Comment CULT NOT INDICATED White Blood Count 8.2 TH/MM3 7.3 TH/MM3 Red Blood Count 4.08 MIL/MM3 4.32 MIL/MM3 Hemoglobin 12.8 GM/DL 13.5 GM/DL Hematocrit 36.8 % 38.5 % Mean Corpuscular Volume 90.2 FL 89.2 FL Mean Corpuscular Hemoglobin 31.4 PG 31.2 PG Mean Corpuscular Hemoglobin Concent 34.8 % 35.0 % Red Cell Distribution Width 13.0 % 12.6 % Platelet Count 202 TH/MM3 209 TH/MM3 Mean Platelet Volume 7.1 FL 6.9 FL Neutrophils (%) (Auto) 66.3 % 64.8 % Lymphocytes (%) (Auto) 17.0 % 18.3 % Monocytes (%) (Auto) 8.4 % 8.5 % Eosinophils (%) (Auto) 7.0 % 7.5 % Basophils (%) (Auto) 1.3 % 0.9 % Neutrophils # (Auto) 5.5 TH/MM3 4.7 TH/MM3 Lymphocytes # (Auto) 1.4 TH/MM3 1.3 TH/MM3 Monocytes # (Auto) 0.7 TH/MM3 0.6 TH/MM3 Eosinophils # (Auto) 0.6 TH/MM3 0.6 TH/MM3 Basophils # (Auto) 0.1 TH/MM3 0.1 TH/MM3 CBC Comment DIFF FINAL DIFF FINAL Differential Comment Blood Urea Nitrogen 23 MG/DL 21 MG/DL Creatinine 1.47 MG/DL 1.29 MG/DL Random Glucose 112 MG/DL 108 MG/DL Total Protein 7.5 GM/DL 7.3 GM/DL Albumin 3.4 GM/DL 3.4 GM/DL Calcium Level 8.5 MG/DL 8.8 MG/DL Alkaline Phosphatase 86 U/L 82 U/L Aspartate Amino Transf (AST/SGOT) 30 U/L 27 U/L Alanine Aminotransferase (ALT/SGPT) 36 U/L 31 U/L Total Bilirubin 0.7 MG/DL 0.9 MG/DL Sodium Level 141 MEQ/L 141 MEQ/L Potassium Level 4.2 MEQ/L 3.8 MEQ/L Chloride Level 108 MEQ/L 108 MEQ/L Carbon Dioxide Level 26.7 MEQ/L 27.1 MEQ/L Anion Gap 6 MEQ/L 6 MEQ/L Estimat Glomerular Filtration Rate 46 ML/MIN 54 ML/MIN Triglycerides Level 72 MG/DL Cholesterol Level 88 MG/DL LDL Cholesterol 44 MG/DL HDL Cholesterol 30.1 MG/DL Cholesterol/HDL Ratio 2.92 RATIO Vitamin B12 Level 273 PG/ML 25-Hydroxy Vitamin D Total 21.9 ng/ML Thyroid Stimulating Hormone 3rd Gen 1.540 uIU/ML Mental Status Examination Appearance: Disheveled Consciousness: Alert Orientation: Person Motor Activity: Abnormal gait Speech: Incoherent Language: Perseveration Fund of Knowledge: Inadequate Attention and Concentration: Inadequate Memory: Impaired Mood: Oppositional Affect: Labile Thought Process & Associations: Intact Thought Content: Preoccupations, Delusional Hallucination Type: None Delusion Type: Paranoid Suicidal Ideation: No Suicidal Plan: No Suicidal Intention: No Homicidal Ideation: No Homicidal Plan: No Homicidal Intention: No Insight: Poor Judgment: Poor Assessment & Plan Problem List: (1) Dementia in other diseases classified elsewhere with behavioral disturbance ICD Codes: F02.81 - Dementia in other diseases classified elsewhere with behavioral disturbance Assessment & Plan: I have seen and examined the patient, review documentation, I completely agree and concur with Dr. Rowley's assessment and plan. (2) Alzheimer's dementia with behavioral disturbance ICD Codes: G30.9 - Alzheimer's disease, unspecified; F02.81 - Dementia in other diseases classified elsewhere with behavioral disturbance Assessment & Plan Estimated LOS: days Ru Saul MD Mar 13, 2017 11:56
[2017-03-13 16:08] LABS: HEMOGLOBIN A1C 5.2 % (4.3-6.0)
[2017-03-13 17:46] VITALS: BP 137/65; PULSE 60; RESP 17; TEMP 98.1; O2SAT 97
[2017-03-13] MEDS: ATORVASTATIN 40 MG TAB PO SCH (20:49)
[2017-03-14 05:42] VITALS: BP 117/57; PULSE 64; RESP 16; TEMP 98.4; O2SAT 92
[2017-03-14] MEDS: PANTOPRAZOLE SOD 20 MG DELAYED RELEASE TAB PO SCH (06:00)
--- NOTE | 2017-03-14 07:57 | HHI.PR ---
Subjective Remarks Ambulating in the room, appears in nad. he is pleasantly confused. Telling me all doors are locked and can;t get out. Rash on LE is the same. No fever or chills. Says she has a doctor as OP and he will follow up with his doctors. Objective Vitals Vital Signs Date Time Temp Pulse Resp B/P (MAP) Pulse Ox O2 Delivery O2 Flow Rate FiO2 03/14/17 05:42 98.4 64 16 117/57 (77) 92 03/13/17 17:46 98.1 60 17 137/65 (89) 97 I/O 03/13/17 03/13/17 03/13/17 03/14/17 03/14/17 03/14/17 07:00 15:00 23:00 07:00 15:00 23:00 Intake Total 0 ml 1680 ml Balance 0 ml 1680 ml Intake Oral 0 ml 1680 ml # Voids 2 2 Result Diagram: 03/13/17 0750 03/13/17 0750 Imaging Last Impressions Cervical Spine X-Ray 03/12/17 1441 Signed Impressions: Service Date/Time: February 15:04 - CONCLUSION: 1. No acute fracture or subluxation. 2. Multilevel degenerative spondylosis of the cervical spine most prominently at C4-7. Alberto Yu MD Lower Extremity Ultrasound 03/12/17 0000 Signed Impressions: Service Date/Time: February 18:48 - CONCLUSION: Normal examination. Mark Schafer MD Objective Remarks GENERAL: Awake and alert, pleasantly confused, appears in nad. CARDIOVASCULAR: Regular rate and rhythm. S1 and S2 no S3 or S4 RESPIRATORY: No accessory muscle use. Clear to auscultation. Breath sounds equal bilaterally. GASTROINTESTINAL: Abdomen soft, non-tender, nondistended. Hepatic and splenic margins not palpable. MUSCULOSKELETAL: Extremities without clubbing, cyanosis, or edema. No obvious deformities. NEUROLOGICAL: Awake and alert. No obvious cranial nerve deficits. Motor grossly within normal limits. Five out of 5 muscle strength in the arms and legs. Normal speech. A/P Assessment and Plan Headaches Bilateral LE swelling and itching negative scan for DVTs CAD- s/p stent - 3.5yrs ago Kidney cyst BPH Alzheimer dx - diagnosed 2 yrs ago and had episodes of leaving home H/o skin cancer - sq cell Renal insufficiency probably chronic Doppler US of LE negative for DVT CT 02/16/17 no acute issues pain control for headaches benadryl prn for itching if fever or redness, will consider antibiotics --no fevers noted DVT prophylaxis with ambulation Angelina Hazel MD Mar 14, 2017 07:57
[2017-03-14] MEDS: CETIRIZINE HCL 10 MG TAB PO SCH (08:13)
[2017-03-14] MEDS: CHOLECALCIFEROL (VIT D3) 1000 UNIT TAB PO SCH (08:13)
[2017-03-14] MEDS: TRIAMCINOLONE ACETONIDE 0.1% CREAM 15 GM TOPICAL SCH ×2 (08:13→20:58)
--- NOTE | 2017-03-14 12:15 | EKG ---
Date Performed: 03/12/2017 Time Performed: 16:58:18 PTAGE: 81 years EKG: Sinus rhythm WITH FIRST DEGREE AV BLOCK LOW QRS VOLTAGE IN EXTREMITY LEADS ABNORMAL QRS-T ANGLE ABNORMAL ECG PREVIOUS TRACING : 02/26/2017 16.01 DOCTOR: Breanne Hassan Interpretating Date/Time 03/14/2017 12:13:30
[2017-03-14 18:00] VITALS: BP 101/67; PULSE 70; RESP 16; TEMP 97.1; O2SAT 97
--- NOTE | 2017-03-14 18:15 | HHI.PYPN ---
Subjective Remarks Patient was seen and case discussed with nursing. Pt remains fixated on leaving , looking out the window. Oppositional with treatment, poor insight. AAOx1. No outbursts. Denies psychotic symptoms. Not answering questions appropriately at times possibly due to hearing deficit. Mental Status Examination Appearance: Disheveled Consciousness: Alert Orientation: Person Motor Activity: Abnormal gait Speech: Incoherent Language: Perseveration Fund of Knowledge: Inadequate Attention and Concentration: Inadequate Memory: Impaired Mood: Oppositional, Irritable Affect: Anxious Thought Process & Associations: Intact Thought Content: Preoccupations, Delusional Hallucination Type: None Delusion Type: Paranoid Suicidal Ideation: No Suicidal Plan: No Suicidal Intention: No Homicidal Ideation: No Homicidal Plan: No Homicidal Intention: No Insight: Poor Judgment: Poor Results Vitals/IOs Vital Signs Date Time Temp Pulse Resp B/P (MAP) Pulse Ox O2 Delivery O2 Flow Rate FiO2 03/14/17 18:00 97.1 70 16 101/67 (78) 97 03/12/17 14:16 Room Air Intake and Output 03/14/17 03/14/17 03/15/17 08:00 16:00 00:00 Intake Total 360 ml 1320 ml 1800 ml Balance 360 ml 1320 ml 1800 ml Assessment & Plan Problem List: (1) Dementia in other diseases classified elsewhere with behavioral disturbance ICD Codes: F02.81 - Dementia in other diseases classified elsewhere with behavioral disturbance (2) Alzheimer's dementia with behavioral disturbance ICD Codes: G30.9 - Alzheimer's disease, unspecified; F02.81 - Dementia in other diseases classified elsewhere with behavioral disturbance Assessment & Plan Continue current treatment plan Justification for Cont. Inpt. Patient would decompensate in a less restrictive setting Andrei Hurley DO Mar 14, 2017 18:15
[2017-03-14] MEDS: ATORVASTATIN 40 MG TAB PO SCH (20:58)
[2017-03-15] MEDS: PANTOPRAZOLE SOD 20 MG DELAYED RELEASE TAB PO SCH (06:00)
[2017-03-15 06:09] VITALS: BP 121/75; PULSE 62; RESP 17; TEMP 97.4; O2SAT 95
--- NOTE | 2017-03-15 07:46 | HHI.PR ---
Subjective Remarks Says he wants to go home , says his will bring him to his doctors. Denies chest pain or shortness of breath. No palpitations. No nausea or vomiting abdominal pain no constipation. [place] in his lower extremities, no pruritus Objective Vitals Vital Signs Date Time Temp Pulse Resp B/P (MAP) Pulse Ox O2 Delivery O2 Flow Rate FiO2 03/15/17 06:09 97.4 62 17 121/75 (90) 95 03/14/17 18:00 97.1 70 16 101/67 (78) 97 I/O 03/14/17 03/14/17 03/14/17 03/15/17 03/15/17 03/15/17 07:00 15:00 23:00 07:00 15:00 23:00 Intake Total 1680 ml 1800 ml 480 ml Balance 1680 ml 1800 ml 480 ml Intake Oral 1680 ml 1800 ml 480 ml # Voids 5 2 # Bowel Movements 0 Result Diagram: 03/13/17 0750 03/13/17 0750 Objective Remarks GENERAL: Awake and alert, pleasantly confused, appears in nad. CARDIOVASCULAR: Regular rate and rhythm. S1 and S2 no S3 or S4 RESPIRATORY: No accessory muscle use. Clear to auscultation. Breath sounds equal bilaterally. GASTROINTESTINAL: Abdomen soft, non-tender, nondistended. Hepatic and splenic margins not palpable. MUSCULOSKELETAL: Extremities without clubbing, cyanosis, or edema. No obvious deformities. NEUROLOGICAL: Awake and alert. No obvious cranial nerve deficits. Motor grossly within normal limits. Five out of 5 muscle strength in the arms and legs. Normal speech. A/P Assessment and Plan Headaches . Resolved Bilateral LE swelling and itching negative scan for DVTs. Improving CAD- s/p stent - 3.5yrs ago Kidney cyst BPH Alzheimer dx - diagnosed 2 yrs ago and had episodes of leaving home H/o skin cancer - sq cell Renal insufficiency probably chronic Doppler US of LE negative for DVT CT 02/16/17 no acute issues pain control for headaches benadryl prn for itching if fever or redness, will consider antibiotics --no fevers noted DVT prophylaxis with ambulation Appears stable medically Discussed with the patient, nurse Angelina Hazel MD Mar 15, 2017 07:46
[2017-03-15] MEDS: CHOLECALCIFEROL (VIT D3) 1000 UNIT TAB PO SCH (08:24)
[2017-03-15] MEDS: CETIRIZINE HCL 10 MG TAB PO SCH (08:24)
[2017-03-15] MEDS: TRIAMCINOLONE ACETONIDE 0.1% CREAM 15 GM TOPICAL SCH ×2 (08:24→21:00)
--- NOTE | 2017-03-15 14:48 | HHI.PYPN ---
Subjective Remarks Pt was seen and case discussed with nursing. Pt remains very perseverant on leaving, he is standing by the door for hours, scanning various objects next to the scanner. I tried explaining his status here which failed, nursing also tried earlier. Was c/o of mild abdominal pain but refusing to take medication. AAOx1. Refusing medication. Mental Status Examination Appearance: Disheveled Consciousness: Alert Orientation: Person Motor Activity: Abnormal gait Speech: Incoherent Language: Perseveration Fund of Knowledge: Inadequate Attention and Concentration: Inadequate Memory: Impaired Mood: Oppositional, Irritable Affect: Anxious Thought Process & Associations: Intact Thought Content: Preoccupations, Delusional Hallucination Type: None Delusion Type: Paranoid Suicidal Ideation: No Suicidal Plan: No Suicidal Intention: No Homicidal Ideation: No Homicidal Plan: No Homicidal Intention: No Insight: Poor Judgment: Poor Results Vitals/IOs Vital Signs Date Time Temp Pulse Resp B/P (MAP) Pulse Ox O2 Delivery O2 Flow Rate FiO2 03/15/17 06:09 97.4 62 17 121/75 (90) 95 03/12/17 14:16 Room Air Intake and Output 03/15/17 03/15/17 03/16/17 08:00 16:00 00:00 Intake Total 120 ml 240 ml Balance 120 ml 240 ml Assessment & Plan Problem List: (1) Dementia in other diseases classified elsewhere with behavioral disturbance ICD Codes: F02.81 - Dementia in other diseases classified elsewhere with behavioral disturbance (2) Alzheimer's dementia with behavioral disturbance ICD Codes: G30.9 - Alzheimer's disease, unspecified; F02.81 - Dementia in other diseases classified elsewhere with behavioral disturbance Assessment & Plan Continue current treatment plan. Justification for Cont. Inpt. Patient would decompensate in a less restrictive setting. Andrei Hurley DO Mar 15, 2017 14:48
[2017-03-15 18:00] VITALS: BP 127/66; PULSE 61; RESP 17; TEMP 97.8; O2SAT 97
[2017-03-15] MEDS: ATORVASTATIN 40 MG TAB PO SCH (21:00)
[2017-03-16] MEDS: PANTOPRAZOLE SOD 20 MG DELAYED RELEASE TAB PO SCH (06:00)
[2017-03-16 06:43] VITALS: BP 133/72; PULSE 65; RESP 18; TEMP 98.2; O2SAT 96
--- NOTE | 2017-03-16 08:59 | HHI.PYPN ---
Subjective Remarks Patient was seen today for psychiatric reevaluation. Case was widely discussed with the nurse in charge. Notes from the psychiatrist rounding in the weekend reviewed. On psychiatric evaluation today the patient is found in the [facility], requesting to be discharged, persistently walking to the door and trying to elope from the unit. Patient has been difficult to handle and manage during the week end, needing constant redirection. Patient has been also persistently refusing medications. Multiple periods of agitation and verbal hostility reported, but not aggressive behavior. Patient continues to be just oriented person, completely disoriented in time and place. Review of Systems Except as stated in HPI: all other systems reviewed are Neg Mental Status Examination Appearance: Disheveled Consciousness: Alert Orientation: Person Motor Activity: Abnormal gait Speech: Incoherent Language: Perseveration Fund of Knowledge: Inadequate Attention and Concentration: Inadequate Memory: Impaired Mood: Oppositional, Irritable Affect: Anxious Thought Process & Associations: Intact Thought Content: Preoccupations, Delusional Hallucination Type: None Delusion Type: Paranoid Suicidal Ideation: No Suicidal Plan: No Suicidal Intention: No Homicidal Ideation: No Homicidal Plan: No Homicidal Intention: No Insight: Poor Judgment: Poor Results Vitals/IOs Vital Signs Date Time Temp Pulse Resp B/P (MAP) Pulse Ox O2 Delivery O2 Flow Rate FiO2 03/16/17 06:43 98.2 65 18 133/72 (92) 96 03/12/17 14:16 Room Air Intake and Output 03/16/17 03/16/17 03/17/17 08:00 16:00 00:00 Intake Total 240 ml Balance 240 ml Assessment & Plan Problem List: (1) Dementia in other diseases classified elsewhere with behavioral disturbance ICD Codes: F02.81 - Dementia in other diseases classified elsewhere with behavioral disturbance Assessment & Plan: We'll start Seroquel 25 mg twice a day for behavioral dysregulation and agitation. Patient was encouraged and educated the importance of taking his medications and cooperate with team and work together in a discharge plan. (2) Alzheimer's dementia with behavioral disturbance ICD Codes: G30.9 - Alzheimer's disease, unspecified; F02.81 - Dementia in other diseases classified elsewhere with behavioral disturbance Assessment & Plan Estimated LOS: days Justification for Cont. Inpt. Patient continues to be acutely agitated, disorganized, difficult to handle in the unit, he needs to continue psychiatric hospitalization for stabilization Ru Saul MD Mar 16, 2017 08:59
[2017-03-16] MEDS: CETIRIZINE HCL 10 MG TAB PO SCH (09:00)
[2017-03-16] MEDS: TRIAMCINOLONE ACETONIDE 0.1% CREAM 15 GM TOPICAL SCH ×2 (09:00→20:42)
[2017-03-16] MEDS: QUEtiapine FUMARATE 25 MG TAB PO SCH ×2 (09:00→12:00)
[2017-03-16] MEDS: CHOLECALCIFEROL (VIT D3) 1000 UNIT TAB PO SCH (09:00)
[2017-03-16] MEDS ORDERED: OLANZapine IM 10 MG VIAL IM ONE ×2 (09:40→10:00)
--- NOTE | 2017-03-16 14:51 | PD.TTN ---
Patient Problems 1. Discharge planning 2. Medication compliance 3. Knowledge deficit 4. Lack of coping skills Progress Toward Goals Provider Present: Dr. Arian Saul Provider Input: 03/16/17 Per doctor, patient is still not stable mentally, and continues to require monitoring with his behavior and mood. Nurse(s) Present: MARCO A Phan Nurse(s) Input: 03/16/17 Patient is refusing his medication; require encouragement with meals, and redirection with behavior Psychiatric Counselors Present: TRIXIE Hale Psych Therapist Input: 03/16/17; family have been provided a package for locked facilities, patient will be dc back to [facility] when stable. Group Spec/RT/OT/GALVEZ Present: Brain Jain OT Group Spec/RT/OT/GALVEZ Input: Patient lack the ability or insight to participate with groups Documentation Scribe: TRIXIE Hale Sandra LMHC Mar 16, 2017 14:51
[2017-03-16] MEDS: ATORVASTATIN 40 MG TAB PO SCH (20:42)
--- NOTE | 2017-03-16 20:53 | HHI.PR ---
Objective Vitals Vital Signs Date Time Temp Pulse Resp B/P (MAP) Pulse Ox O2 Delivery O2 Flow Rate FiO2 03/16/17 06:43 98.2 65 18 133/72 (92) 96 I/O 03/15/17 03/15/17 03/15/17 03/16/17 03/16/17 03/16/17 07:00 15:00 23:00 07:00 15:00 23:00 Intake Total 600 ml 360 ml 480 ml 240 ml Output Total 3 ml Balance 600 ml 360 ml 477 ml 240 ml Intake Oral 600 ml 360 ml 480 ml 240 ml Output Urine Total 3 ml # Voids 2 2 3 # Bowel Movements 0 Result Diagram: 03/13/17 0750 03/13/17 0750 Imaging Last Impressions Cervical Spine X-Ray 03/12/17 1441 Signed Impressions: Service Date/Time: February 15:04 - CONCLUSION: 1. No acute fracture or subluxation. 2. Multilevel degenerative spondylosis of the cervical spine most prominently at C4-7. Alberto Yu MD Lower Extremity Ultrasound 03/12/17 0000 Signed Impressions: Service Date/Time: February 18:48 - CONCLUSION: Normal examination. Mark Schafer MD Objective Remarks GENERAL: Awake and alert, pleasantly confused, appears in nad. CARDIOVASCULAR: Regular rate and rhythm. S1 and S2 no S3 or S4 RESPIRATORY: No accessory muscle use. Clear to auscultation. Breath sounds equal bilaterally. GASTROINTESTINAL: Abdomen soft, non-tender, nondistended. Hepatic and splenic margins not palpable. MUSCULOSKELETAL: Extremities without clubbing, cyanosis, or edema. No obvious deformities. NEUROLOGICAL: Awake and alert. No obvious cranial nerve deficits. Motor grossly within normal limits. Five out of 5 muscle strength in the arms and legs. Normal speech. Medications and IVs Current Medications Medications (Trade) Dose Ordered Sig/Conor Route Start Time Stop Time Status Last Admin (Aristocort 0.1% Cream) 1 applic BID TOPICAL 03/12/17 21:00 (ZyrTEC) 10 mg DAILY PO 03/13/17 09:00 (Ativan) 1 mg Q6H PRN PO 03/12/17 16:30 03/13/17 20:50 (Tylenol) 650 mg Q4H PRN PO 03/12/17 16:30 03/12/17 18:39 (Milk Of Magnesia Liq) 30 ml DAILY PRN PO 03/12/17 16:30 03/12/17 18:42 (Mag-Al Plus Susp Liq) 30 ml Q6H PRN PO 03/12/17 16:30 (Lipitor) 40 mg HS PO 03/12/17 21:00 03/13/17 20:49 (Vitamin D3) 1,000 units DAILY PO 03/13/17 09:00 (Protonix) 20 mg DAILY@0600 PO 03/13/17 06:00 03/13/17 06:24 (Benadryl) 25 mg Q6H PRN PO 03/12/17 18:00 03/12/17 18:40 (Benadryl 2% Cream) 1 applic TID PRN TOPICAL 03/12/17 18:15 (SEROquel) 25 mg BID@09,12 PO 03/16/17 09:00 A/P Assessment and Plan Headaches . Resolved Bilateral LE swelling and itching negative scan for DVTs. Improving CAD- s/p stent - 3.5yrs ago Renal cyst BPH Alzheimer dx - diagnosed 2 yrs ago and had episodes of leaving home H/o skin cancer - sq cell Renal insufficiency probably chronic Doppler US of LE negative for DVT CT 02/16/17 no acute issues pain control for headaches benadryl prn for itching if fever or redness, will consider antibiotics --no fevers noted DVT prophylaxis with ambulation Justice Mckinney MD Mar 16, 2017 20:53
[2017-03-17] MEDS: PANTOPRAZOLE SOD 20 MG DELAYED RELEASE TAB PO SCH (05:35)
[2017-03-17 06:03] VITALS: BP 91/54; PULSE 72; RESP 16; TEMP 97.6; O2SAT 95
[2017-03-17] MEDS: TRIAMCINOLONE ACETONIDE 0.1% CREAM 15 GM TOPICAL SCH ×2 (09:00→21:00)
[2017-03-17] MEDS: CHOLECALCIFEROL (VIT D3) 1000 UNIT TAB PO SCH (09:00)
[2017-03-17] MEDS: QUEtiapine FUMARATE 25 MG TAB PO SCH ×2 (09:45→12:00)
[2017-03-17] MEDS: CETIRIZINE HCL 10 MG TAB PO SCH (09:45)
--- NOTE | 2017-03-17 14:43 | HHI.PYPN ---
Subjective Remarks Patient was seen today for psychiatric reevaluation. Chart reviewed. On psychiatric evaluation patient is found in the recreational area, continues to be confused, disoriented, he is calm, cooperative, he says that he is ready to go back home to [place]. He says that he needs [place] get to the airport today. He reports good mood, he is friendly, and in a good spirits today, less irritable and demanding that yesterday. Yesterday with encouragement the patient took his medications. He was encouraged to continue taking medications. Mental Status Examination Appearance: Disheveled Consciousness: Alert Orientation: Person Motor Activity: Abnormal gait Speech: Incoherent Language: Perseveration Fund of Knowledge: Inadequate Attention and Concentration: Inadequate Memory: Impaired Mood: Oppositional, Irritable Affect: Anxious Thought Process & Associations: Intact Thought Content: Preoccupations, Delusional Hallucination Type: None Delusion Type: Paranoid Suicidal Ideation: No Suicidal Plan: No Suicidal Intention: No Homicidal Ideation: No Homicidal Plan: No Homicidal Intention: No Insight: Poor Judgment: Poor Results Vitals/IOs Vital Signs Date Time Temp Pulse Resp B/P (MAP) Pulse Ox O2 Delivery O2 Flow Rate FiO2 03/17/17 06:03 97.6 72 16 91/54 (66) 95 Intake and Output 03/17/17 03/17/17 03/18/17 08:00 16:00 00:00 Intake Total 720 ml Balance 720 ml Assessment & Plan Problem List: (1) Dementia in other diseases classified elsewhere with behavioral disturbance ICD Codes: F02.81 - 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 Inpt. Continue current psychotropic regimen. Continue Monitorization mood and behavior. Continue psychiatric hospitalization for stabilization. Ru Saul MD Mar 17, 2017 14:43
[2017-03-17 18:43] VITALS: BP 108/60; PULSE 58; RESP 18; TEMP 97.4; O2SAT 97
[2017-03-17] MEDS: ATORVASTATIN 40 MG TAB PO SCH (21:09)
[2017-03-18] MEDS: PANTOPRAZOLE SOD 20 MG DELAYED RELEASE TAB PO SCH (05:41)
[2017-03-18] MEDS: CHOLECALCIFEROL (VIT D3) 1000 UNIT TAB PO SCH (09:43)
[2017-03-18] MEDS: QUEtiapine FUMARATE 25 MG TAB PO SCH ×3 (09:43→12:52)
[2017-03-18] MEDS: CETIRIZINE HCL 10 MG TAB PO SCH (09:43)
--- NOTE | 2017-03-18 10:17 | HHI.PYPN ---
Subjective Remarks Patient was seen today for psychiatric reevaluation. Chart reviewed. Case discussed with nurse in charge. On psychiatric evaluation today the patient is found walking in the [place], today he is calm, cooperative, in a good spirit, different than previous days he is not so focused in leaving the unit, he reports good mood, denies depressive symptoms, he denies anxiety, patient continues to be confused and pleasantly disoriented, he denies suicidal and homicidal ideation, he denies visual and auditory hallucinations. No periods of agitation, violence or aggressive behavior reported. Patient has been compliant with medications, no significant side effects reported. Review of Systems Psychiatric: COMPLAINS OF: Confusion Except as stated in HPI: all other systems reviewed are Neg Mental Status Examination Appearance: Disheveled Consciousness: Alert Orientation: Person Motor Activity: Abnormal gait Speech: Incoherent Language: Perseveration Fund of Knowledge: Inadequate Attention and Concentration: Inadequate Memory: Impaired Mood: Appropriate, Irritable Affect: Appropriate Thought Process & Associations: Intact Thought Content: Preoccupations, Delusional Hallucination Type: None Delusion Type: Paranoid Suicidal Ideation: No Suicidal Plan: No Suicidal Intention: No Homicidal Ideation: No Homicidal Plan: No Homicidal Intention: No Insight: Fair Judgment: Impulsive Results Vitals/IOs Vital Signs Date Time Temp Pulse Resp B/P (MAP) Pulse Ox O2 Delivery O2 Flow Rate FiO2 03/17/17 18:43 97.4 58 18 108/60 (76) 97 Assessment & Plan Problem List: (1) Dementia in other diseases classified elsewhere with behavioral disturbance ICD Codes: F02.81 - Dementia in other diseases classified elsewhere with behavioral disturbance (2) Alzheimer's dementia with behavioral disturbance ICD Codes: G30.9 - Alzheimer's disease, unspecified; F02.81 - Dementia in other diseases classified elsewhere with behavioral disturbance Assessment & Plan: Continue current medications. Support and motivation provided. Assessment & Plan Estimated LOS: days Justification for Cont. Inpt. Patient has an elevated risk to decompensate at a lower level of care Ru Saul MD Mar 18, 2017 10:17
--- NOTE | 2017-03-18 14:57 | HHI.PR ---
Subjective Remarks Follow-up for medical condition Spoke to the patient's nurse stated that patient has no issue. Patient has dementia and was not really able to give me any information. He had no complaints. Objective Vitals Vital Signs Date Time Temp Pulse Resp B/P (MAP) Pulse Ox O2 Delivery O2 Flow Rate FiO2 03/17/17 18:43 97.4 58 18 108/60 (76) 97 I/O 03/17/17 03/17/17 03/17/17 03/18/17 03/18/17 03/18/17 07:00 15:00 23:00 07:00 15:00 23:00 Intake Total 720 ml 240 ml Balance 720 ml 240 ml Intake Oral 720 ml 240 ml Imaging Last Impressions Cervical Spine X-Ray 03/12/17 1441 Signed Impressions: Service Date/Time: February 15:04 - CONCLUSION: 1. No acute fracture or subluxation. 2. Multilevel degenerative spondylosis of the cervical spine most prominently at C4-7. Alberto Yu MD Lower Extremity Ultrasound 03/12/17 0000 Signed Impressions: Service Date/Time: February 18:48 - CONCLUSION: Normal examination. Mark Schafer MD Objective Remarks GENERAL: in NAD CARDIOVASCULAR: Regular rate and rhythm without murmurs, gallops, or rubs. RESPIRATORY: Breath sounds equal bilaterally. No accessory muscle use. GASTROINTESTINAL: Abdomen soft, non-tender, nondistended. Medications and IVs Current Medications Triamcinolone Acetonide (Aristocort 0.1% Cream) 1 applic BID TOPICAL ; Start at 21:00 Cetirizine HCl (ZyrTEC) 10 mg DAILY PO Last administered on 03/18/17 09:43; Start 03/13/17 at 09:00 Lorazepam (Ativan) 1 mg Q6H PRN PO MODERATE TO SEVERE ANXIETY Last administered on 03/13/17 20:50; Start 03/12/17 at 16:30 Acetaminophen (Tylenol) 650 mg Q4H PRN PO Pain 1-5 or Temp >101F Last administered on 03/12/17 18:39; Start 03/12/17 at 16:30 Magnesium Hydroxide (Milk Of Magnesia Liq) 30 ml DAILY PRN PO CONSTIPATION Last administered on 03/12/17 18:42; Start 03/12/17 at 16:30 Al Hydrox/Mg Hydrox/Simethicone (Mag-Al Plus Susp Liq) 30 ml Q6H PRN PO DYSPEPSIA; Start 03/12/17 at 16:30 Atorvastatin Calcium (Lipitor) 40 mg HS PO Last administered on 03/17/17 21: 09; Start 03/12/17 at 21:00 Cholecalciferol (Vitamin D3) 1,000 units DAILY PO Last administered on 09:43; Start 03/13/17 at 09:00 Pantoprazole Sodium (Protonix) 20 mg DAILY@0600 PO Last administered on 05:41; Start 03/13/17 at 06:00 Diphenhydramine HCl (Benadryl) 25 mg Q6H PRN PO itching Last administered on 18:40; Start 03/12/17 at 18:00 Diphenhydramine HCl (Benadryl 2% Cream) 1 applic TID PRN TOPICAL ITCHING; Start 03/12/17 at 18:15 Quetiapine Fumarate (SEROquel) 25 mg BID@09,12 PO Last administered on 09:43; Start 03/16/17 at 09:00 Olanzapine (ZyPREXA INJ) 10 mg STK-MED ONCE IM ; Start 03/16/17 at 09:40; Stop 03/16/17 at 09:41; Status DC Olanzapine (ZyPREXA INJ) 10 mg NOW ONCE IM Last administered on 03/16/17 09: 50; Start 03/16/17 at 10:00; Stop 03/16/17 at 10:01; Status DC A/P Assessment and Plan Headaches . Resolved Bilateral LE swelling and itching negative scan for DVTs. Resolved. CAD- s/p stent - 3.5yrs ago Kidney cyst BPH Alzheimer dx - diagnosed 2 yrs ago and had episodes of leaving home H/o skin cancer - sq cell Renal insufficiency probably chronic Doppler US of LE negative for DVT CT 02/16/17 no acute issues DVT prophylaxis with ambulation Patient has no acute medical condition. We'll sign off. Can call when necessary for any concerns. Sonal Menon MD Mar 18, 2017 14:57
[2017-03-18 16:06] VITALS: BP 113/60; PULSE 58; RESP 18; TEMP 98.1; O2SAT 97
[2017-03-18] MEDS: ATORVASTATIN 40 MG TAB PO SCH (20:03)
[2017-03-18] MEDS: TRIAMCINOLONE ACETONIDE 0.1% CREAM 15 GM TOPICAL SCH (21:00)
[2017-03-19] MEDS: PANTOPRAZOLE SOD 20 MG DELAYED RELEASE TAB PO SCH (05:32)
[2017-03-19 06:01] VITALS: BP 107/59; PULSE 53; RESP 16; TEMP 97.4; O2SAT 95
[2017-03-19] MEDS: QUEtiapine FUMARATE 25 MG TAB PO SCH ×2 (08:49→11:50)
[2017-03-19] MEDS: CETIRIZINE HCL 10 MG TAB PO SCH (08:50)
[2017-03-19] MEDS: TRIAMCINOLONE ACETONIDE 0.1% CREAM 15 GM TOPICAL SCH ×3 (08:50→20:29)
[2017-03-19] MEDS: CHOLECALCIFEROL (VIT D3) 1000 UNIT TAB PO SCH (08:50)
--- NOTE | 2017-03-19 09:41 | HHI.PYPN ---
Subjective Remarks Patient seen in day room with nurse Manuelito, patient calm diffusely confused. Continues to fixate on getting a monzon so he can leave the department he frequently hovers around the exit daughters. However he is redirectable. Is showing markedly mixed compliant with his medication patient scheduled for [place] later today. Review of Systems Except as stated in HPI: all other systems reviewed are Neg Mental Status Examination Appearance: Disheveled Consciousness: Alert Orientation: Person Motor Activity: Abnormal gait Speech: Incoherent Language: Perseveration Fund of Knowledge: Inadequate Attention and Concentration: Inadequate Memory: Impaired Mood: Appropriate, Irritable Affect: Appropriate Thought Process & Associations: Intact Thought Content: Preoccupations, Delusional Hallucination Type: None Delusion Type: Paranoid Suicidal Ideation: No Suicidal Plan: No Suicidal Intention: No Homicidal Ideation: No Homicidal Plan: No Homicidal Intention: No Insight: Fair Judgment: Impulsive Results Vitals/IOs Vital Signs Date Time Temp Pulse Resp B/P (MAP) Pulse Ox O2 Delivery O2 Flow Rate FiO2 03/19/17 06:01 97.4 53 16 107/59 (75) 95 Intake and Output 03/19/17 03/19/17 03/20/17 08:00 16:00 00:00 Intake Total 360 ml Balance 360 ml Assessment & Plan Problem List: (1) Dementia in other diseases classified elsewhere with behavioral disturbance ICD Codes: F02.81 - Dementia in other diseases classified elsewhere with behavioral disturbance (2) Alzheimer's dementia with behavioral disturbance ICD Codes: G30.9 - Alzheimer's disease, unspecified; F02.81 - Dementia in other diseases classified elsewhere with behavioral disturbance Assessment & Plan Estimated LOS: days patient continues fairly demented confused mildly irritable with significant exits seeking. Scheduled for [place] today Justification for Cont. Inpt. At this time patient will decompensate the placed a lower level of care Discharge Planning To be determined Request HC Surrog/Guard Advoc?: Yes Problem Qualifiers (1) Alzheimer's dementia with behavioral disturbance: Qualified Codes: G30.8 - Other Alzheimer's disease; F02.81 - Dementia in other diseases classified elsewhere with behavioral disturbance Jose Luis Rowley MD Mar 19, 2017 09:41
[2017-03-19 18:00] VITALS: BP 118/64; PULSE 64; RESP 18; TEMP 97.6; O2SAT 98
[2017-03-19] MEDS: ATORVASTATIN 40 MG TAB PO SCH ×2 (20:21→20:29)
[2017-03-20] MEDS: PANTOPRAZOLE SOD 20 MG DELAYED RELEASE TAB PO SCH (05:55)
[2017-03-20 06:13] VITALS: BP 133/70; PULSE 62; RESP 16; TEMP 97.4; O2SAT 95
[2017-03-20] MEDS: CHOLECALCIFEROL (VIT D3) 1000 UNIT TAB PO SCH (08:31)
[2017-03-20] MEDS: CETIRIZINE HCL 10 MG TAB PO SCH (08:31)
[2017-03-20] MEDS: QUEtiapine FUMARATE 25 MG TAB PO SCH ×3 (08:31→20:00)
[2017-03-20] MEDS: TRIAMCINOLONE ACETONIDE 0.1% CREAM 15 GM TOPICAL SCH ×2 (08:32→21:00)
--- NOTE | 2017-03-20 14:05 | HHI.PYPN ---
Subjective Remarks Patient seen in day room with nurse Billings, chart reviewed, patient compliant medication. Patient continues diffusely confused, continues exits seeking asking patient's and staff for daily to leave the unit. He does take redirection. Is no other significant behavioral problems noted. Will increase Seroquel to 25 mg 3 times a day Review of Systems Except as stated in HPI: all other systems reviewed are Neg Mental Status Examination Appearance: Disheveled Consciousness: Alert Orientation: Person Motor Activity: Abnormal gait Speech: Incoherent Language: Perseveration Fund of Knowledge: Inadequate Attention and Concentration: Inadequate Memory: Impaired Mood: Appropriate, Irritable Affect: Appropriate Thought Process & Associations: Intact Thought Content: Preoccupations, Delusional Hallucination Type: None Delusion Type: Paranoid Suicidal Ideation: No Suicidal Plan: No Suicidal Intention: No Homicidal Ideation: No Homicidal Plan: No Homicidal Intention: No Insight: Fair Judgment: Impulsive Results Vitals/IOs Vital Signs Date Time Temp Pulse Resp B/P (MAP) Pulse Ox O2 Delivery O2 Flow Rate FiO2 03/20/17 06:13 97.4 62 16 133/70 (91) 95 Intake and Output 03/20/17 03/20/17 03/21/17 08:00 16:00 00:00 Intake Total 0 ml 240 ml Balance 0 ml 240 ml Assessment & Plan Problem List: (1) Dementia in other diseases classified elsewhere with behavioral disturbance ICD Codes: F02.81 - Dementia in other diseases classified elsewhere with behavioral disturbance (2) Alzheimer's dementia with behavioral disturbance ICD Codes: G30.9 - Alzheimer's disease, unspecified; F02.81 - Dementia in other diseases classified elsewhere with behavioral disturbance Assessment & Plan Estimated LOS: days patient continues demented and confused the focus of his attention on leaving here. There is exits seeking behaviors and also multiple persistent requests for [place] lack of dorsal he can leave Justification for Cont. Inpt. At this time patient will decompensate placed in a lower level of care Discharge Planning We are working with family to find appropriate placement Request HC Surrog/Guard Advoc?: Yes Problem Qualifiers (1) Alzheimer's dementia with behavioral disturbance: Qualified Codes: G30.8 - Other Alzheimer's disease; F02.81 - Dementia in other diseases classified elsewhere with behavioral disturbance Jose Luis Rowley MD Mar 20, 2017 14:05
[2017-03-20 18:16] VITALS: BP 134/68; PULSE 70; RESP 18; TEMP 97.6; O2SAT 98
[2017-03-20] MEDS: ATORVASTATIN 40 MG TAB PO SCH (20:58)
[2017-03-21 05:00] VITALS: BP 132/79; PULSE 59; RESP 16; TEMP 97.7; O2SAT 96
[2017-03-21] MEDS: PANTOPRAZOLE SOD 20 MG DELAYED RELEASE TAB PO SCH (06:00)
[2017-03-21] MEDS: CHOLECALCIFEROL (VIT D3) 1000 UNIT TAB PO SCH (08:46)
[2017-03-21] MEDS: TRIAMCINOLONE ACETONIDE 0.1% CREAM 15 GM TOPICAL SCH ×2 (08:46→20:48)
[2017-03-21] MEDS: CETIRIZINE HCL 10 MG TAB PO SCH (08:46)
[2017-03-21] MEDS: QUEtiapine FUMARATE 25 MG TAB PO SCH ×3 (08:46→20:00)
[2017-03-21] MEDS ORDERED: diphenhydrAMINE HCL 50 MG/ML VIAL IM STA (12:22)
[2017-03-21] MEDS ORDERED: HALOPERIDOL LACTATE 5 MG/ML AMP IM STA (12:22)
--- NOTE | 2017-03-21 16:05 | HHI.PYPN ---
Subjective Remarks Patient was seen and case discussed with nursing. Patient remains alert and oriented 1. Guarded, confused. He remains exit seeking. Continues to be oppositional with medications. Receive an ETO this afternoon. Mental Status Examination Appearance: Disheveled Consciousness: Alert Orientation: Person Motor Activity: Abnormal gait Speech: Incoherent Language: Perseveration Fund of Knowledge: Inadequate Attention and Concentration: Inadequate Memory: Impaired Mood: Appropriate, Irritable Affect: Appropriate Thought Process & Associations: Intact Thought Content: Preoccupations, Delusional Hallucination Type: None Delusion Type: Paranoid Suicidal Ideation: No Suicidal Plan: No Suicidal Intention: No Homicidal Ideation: No Homicidal Plan: No Homicidal Intention: No Insight: Fair Judgment: Impulsive Results Vitals/IOs Vital Signs Date Time Temp Pulse Resp B/P (MAP) Pulse Ox O2 Delivery O2 Flow Rate FiO2 03/21/17 05:00 97.7 59 16 132/79 (96) 96 Assessment & Plan Problem List: (1) Dementia in other diseases classified elsewhere with behavioral disturbance ICD Codes: F02.81 - Dementia in other diseases classified elsewhere with behavioral disturbance (2) Alzheimer's dementia with behavioral disturbance ICD Codes: G30.9 - Alzheimer's disease, unspecified; F02.81 - Dementia in other diseases classified elsewhere with behavioral disturbance Assessment & Plan Continue current treatment plan Justification for Cont. Inpt. Patient will decompensate in a less restrictive setting Request HC Surrog/Guard Advoc?: Yes Problem Qualifiers (1) Alzheimer's dementia with behavioral disturbance: Qualified Codes: G30.8 - Other Alzheimer's disease; F02.81 - Dementia in other diseases classified elsewhere with behavioral disturbance Andrei Hurley DO Mar 21, 2017 16:05
[2017-03-21] MEDS: ATORVASTATIN 40 MG TAB PO SCH (20:47)
[2017-03-22] MEDS: PANTOPRAZOLE SOD 20 MG DELAYED RELEASE TAB PO SCH (05:54)
[2017-03-22 06:00] VITALS: BP 135/72; PULSE 73; RESP 17; TEMP 98; O2SAT 97
[2017-03-22] MEDS: QUEtiapine FUMARATE 25 MG TAB PO SCH ×3 (09:14→20:00)
[2017-03-22] MEDS: CETIRIZINE HCL 10 MG TAB PO SCH (09:15)
[2017-03-22] MEDS: TRIAMCINOLONE ACETONIDE 0.1% CREAM 15 GM TOPICAL SCH ×2 (09:15→21:00)
[2017-03-22] MEDS: CHOLECALCIFEROL (VIT D3) 1000 UNIT TAB PO SCH (09:15)
--- NOTE | 2017-03-22 14:27 | HHI.PYPN ---
Subjective Remarks Patient was seen and case discussed with nursing. Patient remains alert and oriented 1. He remains oppositional, refusing his medications. He remains intent on leaving and is dressed in his jacket. seeking throughout the day. Received an ETO last night at 12:30 slept well afterwards Mental Status Examination Appearance: Disheveled Consciousness: Alert Orientation: Person Motor Activity: Abnormal gait Speech: Incoherent Language: Perseveration Fund of Knowledge: Inadequate Attention and Concentration: Inadequate Memory: Impaired Mood: Appropriate, Irritable Affect: Appropriate Thought Process & Associations: Intact Thought Content: Preoccupations, Delusional Hallucination Type: None Delusion Type: Paranoid Suicidal Ideation: No Suicidal Plan: No Suicidal Intention: No Homicidal Ideation: No Homicidal Plan: No Homicidal Intention: No Insight: Fair Judgment: Impulsive Results Vitals/IOs Vital Signs Date Time Temp Pulse Resp B/P (MAP) Pulse Ox O2 Delivery O2 Flow Rate FiO2 03/22/17 06:00 98.0 73 17 135/72 (93) 97 Intake and Output 03/22/17 03/22/17 03/23/17 08:00 16:00 00:00 Intake Total 0 ml Balance 0 ml Assessment & Plan Problem List: (1) Dementia in other diseases classified elsewhere with behavioral disturbance ICD Codes: F02.81 - Dementia in other diseases classified elsewhere with behavioral disturbance (2) Alzheimer's dementia with behavioral disturbance ICD Codes: G30.9 - Alzheimer's disease, unspecified; F02.81 - Dementia in other diseases classified elsewhere with behavioral disturbance Assessment & Plan Continue current treatment plan Justification for Cont. Inpt. Patient would decompensate in a less restrictive setting Request HC Surrog/Guard Advoc?: Yes Problem Qualifiers (1) Alzheimer's dementia with behavioral disturbance: Qualified Codes: G30.8 - Other Alzheimer's disease; F02.81 - Dementia in other diseases classified elsewhere with behavioral disturbance Andrei Hurley DO Mar 22, 2017 14:27
[2017-03-22] MEDS: MAGNESIUM HYDROXIDE SUSP 30 ML CUP PO PRN (16:29)
[2017-03-22 18:07] VITALS: BP 108/57; PULSE 68; RESP 18; TEMP 98; O2SAT 97
[2017-03-22] MEDS: ATORVASTATIN 40 MG TAB PO SCH (21:00)
[2017-03-23] MEDS: PANTOPRAZOLE SOD 20 MG DELAYED RELEASE TAB PO SCH (06:00)
[2017-03-23 06:40] VITALS: BP 162/79; PULSE 68; RESP 16; TEMP 98.6; O2SAT 98
[2017-03-23] MEDS: ATORVASTATIN 40 MG TAB PO SCH (07:56)
[2017-03-23] MEDS: CHOLECALCIFEROL (VIT D3) 1000 UNIT TAB PO SCH (07:59)
[2017-03-23] MEDS: QUEtiapine FUMARATE 25 MG TAB PO SCH ×3 (08:00→20:00)
[2017-03-23] MEDS: CETIRIZINE HCL 10 MG TAB PO SCH (08:00)
[2017-03-23] MEDS: TRIAMCINOLONE ACETONIDE 0.1% CREAM 15 GM TOPICAL SCH ×2 (08:04→21:00)
--- NOTE | 2017-03-23 09:13 | HHI.PYPN ---
Subjective Remarks Patient seen in day room with nurse Jackie, chart reviewed, patient showing marked resistance and noncompliance of medication. If remains quite disorganized oriented only to self. He also continues to seek asking very staff members for case we can get out of here. For now continue treatment Review of Systems Except as stated in HPI: all other systems reviewed are Neg Mental Status Examination Appearance: Disheveled Consciousness: Alert Orientation: Person Motor Activity: Abnormal gait Speech: Incoherent Language: Perseveration Fund of Knowledge: Inadequate Attention and Concentration: Inadequate Memory: Impaired Mood: Appropriate, Irritable Affect: Appropriate Thought Process & Associations: Intact Thought Content: Preoccupations, Delusional Hallucination Type: None Delusion Type: Paranoid Suicidal Ideation: No Suicidal Plan: No Suicidal Intention: No Homicidal Ideation: No Homicidal Plan: No Homicidal Intention: No Insight: Fair Judgment: Impulsive Results Vitals/IOs Vital Signs Date Time Temp Pulse Resp B/P (MAP) Pulse Ox O2 Delivery O2 Flow Rate FiO2 03/22/17 18:07 98.0 68 18 108/57 (74) 97 Intake and Output 03/23/17 03/23/17 03/24/17 08:00 16:00 00:00 Intake Total 240 ml Balance 240 ml Assessment & Plan Problem List: (1) Dementia in other diseases classified elsewhere with behavioral disturbance ICD Codes: F02.81 - Dementia in other diseases classified elsewhere with behavioral disturbance (2) Alzheimer's dementia with behavioral disturbance ICD Codes: G30.9 - Alzheimer's disease, unspecified; F02.81 - Dementia in other diseases classified elsewhere with behavioral disturbance Assessment & Plan Estimated LOS: days patient continues confused and demented with frequent exits seeking behaviors. Justification for Cont. Inpt. At this time patient will decompensate if placed in the lower level of care Discharge Planning The need to work with family verify appropriate placement Request HC Surrog/Guard Advoc?: Yes Problem Qualifiers (1) Alzheimer's dementia with behavioral disturbance: Qualified Codes: G30.8 - Other Alzheimer's disease; F02.81 - Dementia in other diseases classified elsewhere with behavioral disturbance Jose Luis Rowley MD Mar 23, 2017 09:13
[2017-03-23 17:49] VITALS: BP 108/67; PULSE 70; RESP 17; TEMP 97.9; O2SAT 98
[2017-03-24] MEDS: PANTOPRAZOLE SOD 20 MG DELAYED RELEASE TAB PO SCH (06:00)
[2017-03-24] MEDS: TRIAMCINOLONE ACETONIDE 0.1% CREAM 15 GM TOPICAL SCH (09:00)
[2017-03-24] MEDS: QUEtiapine FUMARATE 25 MG TAB PO SCH ×2 (09:00→13:46)
[2017-03-24] MEDS: CHOLECALCIFEROL (VIT D3) 1000 UNIT TAB PO SCH (09:00)
[2017-03-24] MEDS: CETIRIZINE HCL 10 MG TAB PO SCH (09:00)
--- NOTE | 2017-03-24 11:01 | PD.TTN ---
Patient Problems 1. Discharge planning 2. Medication compliance 3. Knowledge deficit 4. Lack of coping skills Progress Toward Goals Provider Present: Dr. Rosa M Rowley, Dr. Arian Saul Provider Input: 03/24 Patient continues to be exit seeking and thorougly confused. Patient was in placement but was ortega acted again. Patient has been compliant with medications while being on the unit currently, p 03/16/17 Per doctor, patient is still not stable mentally, and continues to require monitoring with his behavior and mood. Nurse(s) Present: MARCO A Phan Nurse(s) Input: 03/16/17 Patient is refusing his medication; require encouragement with meals, and redirection with behavior Psychiatric Counselors Present: TRIXIE Hale Talia Moussly, [facility] Psych Therapist Input: 03/24 Counselor spoke with family memebers and states that she wants patient to return back home. believes patient does worse in facility due to his focus on returning home. 03/16/17; family have been provided a package for locked facilities, patient will be dc [facility] when stable. Group Spec/RT/OT/GALVEZ Present: Brain Jain OT Group Spec/RT/OT/GALVEZ Input: Patient lack the ability or insight to participate with groups Documentation Scribe: TRIXIE Hale Talia [facility] Mar 24, 2017 11:01
[2017-03-24] MEDS ORDERED: CETI10 PO (11:20)
[2017-03-24] MEDS ORDERED: CHOL1000 PO (11:20)
[2017-03-24] MEDS ORDERED: ATOR40TA16 PO (11:20)
[2017-03-24] MEDS ORDERED: SERO25TA PO (11:20)
--- NOTE | 2017-03-24 11:29 | HHI.DS ---
Psychiatry Discharge Summary Inpatient Psychiatric care?: Yes Advance Directive: Yes Mental Health AdvanceDirective: No Health Care Proxy: No Admission Admission Date Mar 12, 2017 at 16:31 Admission Diagnosis: (1) Alzheimer's dementia with behavioral disturbance ICD Code: G30.9 - Alzheimer's disease, unspecified; F02.81 - Dementia in other diseases classified elsewhere with behavioral disturbance (2) Dementia in other diseases classified elsewhere with behavioral disturbance ICD Code: F02.81 - Dementia in other diseases classified elsewhere with behavioral disturbance Brief History 81-year-old male Palm acted by this physician for eloping from his long term facility today, climbing a tree and over a fence in an attempt to "escape". Patient was recently admitted to [facility] for similar behaviors. He has a 2+ year history of diagnosed dementia. He has become increasingly confused, disoriented, agitated and even combative. On his last admission, he had apparently packed a suitcase, taken his 's car, driven to [place] and attempted to board a plane for [place]. The is unable to handle the patient and the patient has been both verbally threatening to her and physically aggressive towards her. At the present time, the patient continues to be verbally threatening towards his . She would like to take him home but apparently he eloped from their home more than 6 times prior to his last psychiatric hospitalization. At this time, the patient is trying to tell this physician directions for his physical care. The patient is alert and oriented to person only. He is not oriented to time, place or situation. He reportedly does not recall climbing a tree, crossing over a fence, and attempting to leave the correction. There is some history that he may have not been wearing a monitor that he was supposed to be wearing. He does not know the medicines he is supposed to be taking and many of them are nonpsychiatric. He is obviously unable to care for himself and continues to engage in dangerous behavior. Finally, patient does have symptoms of paranoia, primarily directed towards his . Patient was seen today for second opinion. The patient was found in his room, calm, superficially cooperative, looking out the window. Patient says that he is waiting his father his mother to come and pick him up and go back to [place]. Patient says that he is from [place] and his plan is going back there. Patient reports good mood, he denies suicidal and homicidal ideation, he denies visual and auditory hallucinations. No agitation or aggressive behavior noted or reported, patient is compliant with medications. Tobacco Use In Past 30 Days: No Tobacco Past 30 Days Alcohol Use: Never Hospital Course Patient hospital course was significant for the fact that patient showed exits seeking behaviors that was consistent through the day. He asked staff her keys making motions at the dorsal he can unlock the relief. At times he was noted to be standing close to daughters also. He also show poor compliance with medication. There is no other behavioral problems noted. There is making occasional patient's . Today our counselor eBrnie spoke with patient's . states that she wishes her to come home today. She feels the stress of this unit is really detrimental to his behavior. She feels her be better behaved at home. She is willing to take responsibility for him. Thus patient be discharged today to his with Rx 1 month referral to his neurologist Dr. garcia Results Blood Pressure 108 / 67 Vital Signs Date Time Temp Pulse Resp B/P (MAP) Pulse Ox O2 Delivery O2 Flow Rate FiO2 03/23/17 17:49 97.9 70 17 108/67 (81) 98 Laboratory Results Test 03/13/17 07:50 Cholesterol Level 88 MG/DL (120-200) HDL Cholesterol 30.1 MG/DL (40.0-60.0) Hemoglobin A1c 5.2 % (4.3-6.0) LDL Cholesterol 44 MG/DL (0-99) Triglycerides Level 72 MG/DL (42-150) Summary of Procedures None done Imaging Last Impressions Cervical Spine X-Ray 03/12/17 1441 Signed Impressions: Service Date/Time: February 15:04 - CONCLUSION: 1. No acute fracture or subluxation. 2. Multilevel degenerative spondylosis of the cervical spine most prominently at C4-7. Alberto Yu MD Lower Extremity Ultrasound 03/12/17 0000 Signed Impressions: Service Date/Time: February 18:48 - CONCLUSION: Normal examination. Mark Schafer MD Pending results at discharge: No Medications # of Antipsychotic meds at D/C: 1 Approp Antipsych med options 1 - Minimum of three failed multiple trials of monotherapy. 2 - Documented plan to taper to monotherapy due to previous use of multiple meds OR cross-taper in progress at D/C. 3 - Documentation of augmentation of Clozapine. 4 - Justification other than those listed in allowable values 1-3, document here : Discharge Discharge Date: Mar 24, 2017 Discharge Diagnosis: (1) Dementia in other diseases classified elsewhere with behavioral disturbance Diagnosis: Principal ICD Code: F02.81 - Dementia in other diseases classified elsewhere with behavioral disturbance (2) Alzheimer's dementia with behavioral disturbance Diagnosis: Principal ICD Code: G30.9 - Alzheimer's disease, unspecified; F02.81 - Dementia in other diseases classified elsewhere with behavioral disturbance Pt Condition on Discharge: Stable Discharge Disposition: Discharge Home Discharge Instructions Diet Instructions: As Tolerated, No Restrictions Activities you can perform: Regular-No Restrictions Scheduled Appointment: dr burroughs patient's to call tomorrow for appointment 's office is closed today Discharge Time > 30 minutes Mental Status Examination Appearance: Disheveled Consciousness: Alert Orientation: Person Motor Activity: Abnormal gait Speech: Incoherent Language: Perseveration Fund of Knowledge: Inadequate Attention and Concentration: Inadequate Memory: Impaired Mood: Appropriate, Irritable Affect: Appropriate Thought Process & Associations: Intact Thought Content: Preoccupations, Delusional Hallucination Type: None Delusion Type: Paranoid Suicidal Ideation: No Suicidal Plan: No Suicidal Intention: No Homicidal Ideation: No Homicidal Plan: No Homicidal Intention: No Insight: Fair Judgment: Impulsive Discharge/Advance Care Plan Health Problems: (1) Dementia in other diseases classified elsewhere with behavioral disturbance (2) Alzheimer's dementia with behavioral disturbance Goals to promote your health * To prevent worsening of your condition and complications * To maintain your health at the optimal level Directions to meet your goals Take your medications as prescribed Follow your dietary instruction Follow activity as directed Keep your appointments as scheduled Take your immunizations and boosters as scheduled If your symptoms worsen call your PCP, if no PCP go to Urgent Care Center or Emergency Room For 20/10 questions related to your inpatient stay or results of tests pending at discharge, please contact Dr. Jose Luis Rowley at Smoking is Dangerous to Your Health. Avoid second hand smoking Problem Qualifiers (1) Alzheimer's dementia with behavioral disturbance: Qualified Codes: G30.8 - Other Alzheimer's disease; F02.81 - Dementia in other diseases classified elsewhere with behavioral disturbance Jose Luis Rowley MD Mar 24, 2017 11:29
== END 2017-03-24 14:25 | disposition home or self-care (01) | DRG 57 ==
LOC: NEPC 14:14 → NEDA 16:31 → H4EA 18:20 → H270 03-16 12:40 → H250 03-18 20:23
PROVIDERS: ADMIT Psychiatry & Neurology Psychiatry; ATTEND Psychiatry & Neurology Psychiatry
DX: G30.9 Alzheimer's disease, unspecified (principal); F02.81 Dementia in other diseases classified elsewhere, unspecified severity, with behavioral disturbance; F22 Delusional disorders; I25.2 Old myocardial infarction; L25.9 Unspecified contact dermatitis, unspecified cause; I87.8 Other specified disorders of veins; R51 Headache; I25.10 Atherosclerotic heart disease of native coronary artery without angina pectoris; N40.0 Benign prostatic hyperplasia without lower urinary tract symptoms; M47.812 Spondylosis without myelopathy or radiculopathy, cervical region; H91.90 Unspecified hearing loss, unspecified ear; R26.9 Unspecified abnormalities of gait and mobility; Z85.828 Personal history of other malignant neoplasm of skin; Z87.891 Personal history of nicotine dependence; Z88.0 Allergy status to penicillin; Z88.2 Allergy status to sulfonamides; Z88.5 Allergy status to narcotic agent; Z91.14 Patient's other noncompliance with medication regimen; Z95.5 Presence of coronary angioplasty implant and graft
CPT/HCPCS: 72040; 80053; 80061; 81001; 82306; 82607; 83036; 84443; 85025; 93005; 93970; 99285; J1200; J1630

== ENCOUNTER 2017-04-09 12:21 | Inpatient (IN) | payer OTHER, MEDICARE ==
[~2017-04-09] VITALS: Ht 170.2 cm; Wt 80.0 kg
[~2017-04-09 12:21] MED LIST changes: +CETI10 PO; -OMEP20TA93 PO
[2017-04-09 12:35] VITALS: BP 132/74; PULSE 64; RESP 17; TEMP 97.7
--- NOTE | 2017-04-09 12:43 | PD ---
HPI Chief Complaint: Palm act Time Seen by Provider: 12:29 Travel History International Travel<30 days: No Contact w/Intl Traveler<30days: No Traveled to known affect area: No History of Present Illness HPI The patient is a 81 year-old male who presents to the emergency department via police as a Palm act. According to the police affidavit the patient was at the main terminal at the airport when the officer was contacted by the patient's , Humaira Meadows. Apparently the brought the patient to the airport because he wanted a by a ticket to [place]. The patient has a history of Alzheimer's disease and dementia, have been prescribed medications, however, refused to take his medications which were helping with his anger as related to Alzheimer's disease. According to the police affidavit, the patient' s was driving the patient to the airport when he got agitated that the advised him he did not have any money to purchase an airline ticket to [place]. The patient then apparently grabbed and jerked the steering well while the vehicle was in motion. The patient does have a history of Alzheimer' s disease, is unsure of what medications he is supposed to be taking, does state he was involved in an argument with his . He denies any current suicidal or homicidal ideation. He denies any physical complaints. PFSH Past Medical History Alzheimer's Disease: Yes Heart Rhythm Problems: No Cancer: No Cardiac Catheterization: Yes Cardiovascular Problems: Yes High Cholesterol: No Congestive Heart Failure: No Dementia: Yes Diabetes: No Diminished Hearing: Yes Glaucoma: No Hepatitis: No Hiatal Hernia: Yes Heparin Induced Thrombocytopen: No Hypertension: No Psychiatric: No Respiratory: No Myocardial Infarction: Yes Thyroid Disease: No Past Surgical History Abdominal Surgery: Yes (lih repair) Cholecystectomy: Yes Coronary Artery Bypass Graft: No Pacemaker: No Other Surgery: Yes (hernia repair) Social History Alcohol Use: No Tobacco Use: No Substance Use: No Allergies-Medications (Allergen,Severity, Reaction): Coded Allergies: codeine (Unverified Allergy, Severe, nausea and vomiting, 03/12/17) Sulfa (Sulfonamide Antibiotics) (Unverified Allergy, Mild, Anaphylaxis, ) penicillin G (Unverified Allergy, Mild, Anaphylaxis, 03/12/17) Reported Meds & Prescriptions Reported Meds & Active Scripts Active Seroquel (Quetiapine Fumarate) 25 Mg Tab 25 Mg PO TID@0900,1400,2000 Cetirizine (Cetirizine HCl) 10 Mg Tab 10 Mg PO DAILY Gnp Vitamin D3 Extra Stre (Cholecalciferol) 1,000 Unit Tab 1,000 Units PO DAILY 15 Days Atorvastatin (Atorvastatin Calcium) 40 Mg Tab 40 Mg PO HS 15 Days Review of Systems ROS Limitations: Poor Historian Except as stated in HPI: all other systems reviewed are Neg Neurologic: Positive: Other (history of Alzheimer's disease and dementia with behavioral disturbances) Physical Exam Narrative GENERAL: Awake, alert, pleasant 81-year-old male who appears his stated age and is in no acute respiratory distress. SKIN: Focused skin assessment warm/dry. HEAD: Atraumatic. Normocephalic. EYES: Pupils equal and round. 3 mm bilateral and reactive. ENT: No nasal bleeding or discharge. Mucous membranes pink and moist. NECK: Trachea midline. No JVD. CARDIOVASCULAR: Regular rate and rhythm. No murmur appreciated. RESPIRATORY: No accessory muscle use. Clear to auscultation. Breath sounds equal bilaterally. GASTROINTESTINAL: Abdomen soft, non-tender, nondistended. No rebound tenderness. MUSCULOSKELETAL: No obvious deformities. No clubbing. No cyanosis. No edema. NEUROLOGICAL: Awake and alert. No obvious cranial nerve deficits. Motor grossly within normal limits. Normal speech. Patient is oriented to name, date of , and age. However, he does not know his current location, month, year , or fiscal services director. PSYCHIATRIC: Appropriate mood and affect; insight and judgment normal. Data Data Last Documented VS Vital Signs Date Time Temp Pulse Resp B/P (MAP) Pulse Ox O2 Delivery O2 Flow Rate FiO2 04/09/17 12:35 97.7 64 17 132/74 (93) Orders Orders Complete Blood Count With Diff (04/09/17 12:36) Comprehensive Metabolic Panel (04/09/17 12:36) Thyroid Stimulating Hormone (04/09/17 12:36) Urinalysis - C+S If Indicated (04/09/17 12:36) Psych Screen (04/09/17 12:36) Drug Screen, Random Urine (04/09/17 12:36) Alcohol (Ethanol) (04/09/17 12:36) Labs Laboratory Tests Test 04/09/17 12:49 White Blood Count 5.9 TH/MM3 Red Blood Count 4.33 MIL/MM3 Hemoglobin 13.4 GM/DL Hematocrit 39.4 % Mean Corpuscular Volume 91.0 FL Mean Corpuscular Hemoglobin 31.0 PG Mean Corpuscular Hemoglobin Concent 34.1 % Red Cell Distribution Width 13.3 % Platelet Count 191 TH/MM3 Mean Platelet Volume 6.9 FL Neutrophils (%) (Auto) 64.1 % Lymphocytes (%) (Auto) 18.7 % Monocytes (%) (Auto) 8.5 % Eosinophils (%) (Auto) 7.6 % Basophils (%) (Auto) 1.1 % Neutrophils # (Auto) 3.8 TH/MM3 Lymphocytes # (Auto) 1.1 TH/MM3 Monocytes # (Auto) 0.5 TH/MM3 Eosinophils # (Auto) 0.4 TH/MM3 Basophils # (Auto) 0.1 TH/MM3 CBC Comment DIFF FINAL Differential Comment Urine Color YELLOW Urine Turbidity CLEAR Urine pH 5.5 Urine Specific [place] 1.025 Urine Protein NEG mg/dL Urine Glucose (UA) NEG mg/dL Urine Ketones NEG mg/dL Urine Occult Blood NEG Urine Nitrite NEG Urine Bilirubin NEG Urine Urobilinogen 2.0 MG/DL Urine Leukocyte Esterase NEG Urine RBC LESS THAN 1 /hpf Urine WBC LESS THAN 1 /hpf Urine Squamous Epithelial Cells <1 /hpf Urine Mucus MOD /lpf Microscopic Urinalysis Comment CULT NOT INDICATED Blood Urea Nitrogen 18 MG/DL Creatinine 1.37 MG/DL Random Glucose 89 MG/DL Total Protein 7.6 GM/DL Albumin 3.6 GM/DL Calcium Level 8.3 MG/DL Alkaline Phosphatase 76 U/L Aspartate Amino Transf (AST/SGOT) 26 U/L Alanine Aminotransferase (ALT/SGPT) 32 U/L Total Bilirubin 0.6 MG/DL Sodium Level 140 MEQ/L Potassium Level 4.1 MEQ/L Chloride Level 107 MEQ/L Carbon Dioxide Level 27.5 MEQ/L Anion Gap 6 MEQ/L Estimat Glomerular Filtration Rate 50 ML/MIN Thyroid Stimulating Hormone 3rd Gen 1.830 uIU/ML Urine Opiates Screen NEG Urine Barbiturates Screen NEG Urine Amphetamines Screen NEG Urine Benzodiazepines Screen NEG Urine Cocaine Screen NEG Urine Cannabinoids Screen NEG Ethyl Alcohol Level LESS THAN 3 MG/DL MDM Medical Decision Making Medical Screen Exam Complete: Yes Emergency Medical Condition: Yes Medical Record Reviewed: Yes Interpretation(s) Laboratory Tests Test 04/09/17 12:49 White Blood Count 5.9 TH/MM3 Red Blood Count 4.33 MIL/MM3 Hemoglobin 13.4 GM/DL Hematocrit 39.4 % Mean Corpuscular Volume 91.0 FL Mean Corpuscular Hemoglobin 31.0 PG Mean Corpuscular Hemoglobin Concent 34.1 % Red Cell Distribution Width 13.3 % Platelet Count 191 TH/MM3 Mean Platelet Volume 6.9 FL Neutrophils (%) (Auto) 64.1 % Lymphocytes (%) (Auto) 18.7 % Monocytes (%) (Auto) 8.5 % Eosinophils (%) (Auto) 7.6 % Basophils (%) (Auto) 1.1 % Neutrophils # (Auto) 3.8 TH/MM3 Lymphocytes # (Auto) 1.1 TH/MM3 Monocytes # (Auto) 0.5 TH/MM3 Eosinophils # (Auto) 0.4 TH/MM3 Basophils # (Auto) 0.1 TH/MM3 CBC Comment DIFF FINAL Differential Comment Urine Color YELLOW Urine Turbidity CLEAR Urine pH 5.5 Urine Specific [place] 1.025 Urine Protein NEG mg/dL Urine Glucose (UA) NEG mg/dL Urine Ketones NEG mg/dL Urine Occult Blood NEG Urine Nitrite NEG Urine Bilirubin NEG Urine Urobilinogen 2.0 MG/DL Urine Leukocyte Esterase NEG Urine RBC LESS THAN 1 /hpf Urine WBC LESS THAN 1 /hpf Urine Squamous Epithelial Cells <1 /hpf Urine Mucus MOD /lpf Microscopic Urinalysis Comment CULT NOT INDICATED Blood Urea Nitrogen 18 MG/DL Creatinine 1.37 MG/DL Random Glucose 89 MG/DL Total Protein 7.6 GM/DL Albumin 3.6 GM/DL Calcium Level 8.3 MG/DL Alkaline Phosphatase 76 U/L Aspartate Amino Transf (AST/SGOT) 26 U/L Alanine Aminotransferase (ALT/SGPT) 32 U/L Total Bilirubin 0.6 MG/DL Sodium Level 140 MEQ/L Potassium Level 4.1 MEQ/L Chloride Level 107 MEQ/L Carbon Dioxide Level 27.5 MEQ/L Anion Gap 6 MEQ/L Estimat Glomerular Filtration Rate 50 ML/MIN Thyroid Stimulating Hormone 3rd Gen 1.830 uIU/ML Urine Opiates Screen NEG Urine Barbiturates Screen NEG Urine Amphetamines Screen NEG Urine Benzodiazepines Screen NEG Urine Cocaine Screen NEG Urine Cannabinoids Screen NEG Ethyl Alcohol Level LESS THAN 3 MG/DL Differential Diagnosis Differential diagnosis includes dementia, Alzheimer's disease, delirium, UTI, hyponatremia, subdural hemorrhage, medication side effect. Narrative Course I reviewed the patient's EMR, he has 2 previous hospitalizations to psychiatry for dementia with behavioral disturbances. The patient had a CT the brain performed on February 26, 2017 which revealed atrophy but no acute hemorrhage. The patient is nonfocal on exam I doubt subdural. UA was sent to lab and BMP was sent to lab to rule out causes of delirium. However, it appears the patient has dementia with behavioral disturbances. If laboratory evaluation is unremarkable patient will be medically cleared to be evaluated by psychiatry. Labs are unremarkable. Patient is medically clear to be evaluated by psychiatry. Diagnosis Primary Impression: Alzheimer's dementia with behavioral disturbance Qualified Codes: G30.9 - Alzheimer's disease, unspecified; F02.81 - Dementia in other diseases classified elsewhere with behavioral disturbance Condition: Alvaro Jesus MD Apr 09, 2017 12:43
[2017-04-09 13:13] LABS: AUTOMATED NEUTROPHIL # 3.8 TH/MM3 (1.8-7.7); BASOPHIL # 0.1 TH/MM3 (0-0.2); BASOPHIL % 1.1 % (0.0-2.0); EOSINOPHIL # 0.4 TH/MM3 (0-0.4); EOSINOPHIL % 7.6 % (0.0-4.0); HEMATOCRIT 39.4 % (39.0-51.0); HEMOGLOBIN 13.4 GM/DL (13.0-17.0); LYMPH % 18.7 % (9.0-44.0); LYMPHOCYTE # 1.1 TH/MM3 (1.0-4.8); MEAN CORPUSCULAR HGB CONC 34.1 % (32.0-36.0); MEAN PLATELET VOLUME 6.9 FL (7.0-11.0); MONO % 8.5 % (0.0-8.0); MONOCYTE # 0.5 TH/MM3 (0-0.9); NEUT % 64.1 % (16.0-70.0); PLATELET COUNT 191 TH/MM3 (150-450); RED BLOOD COUNT 4.33 MIL/MM3 (4.50-5.90); RED CELL DISTRIBUTION WIDTH 13.3 % (11.6-17.2); WHITE BLOOD COUNT 5.9 TH/MM3 (4.0-11.0)
[2017-04-09 13:19] LABS: BILIRUBIN, URINE NEG (NEG); BLOOD, URINE NEG (NEG); GLUCOSE,URINE NEG (NEG); KETONE, URINE NEG (NEG); MUCUS URINE MOD /lpf (OCC); NITRITE,URINE NEG (NEG); PH, URINE 5.5 (5.0-8.5); SQUAMOUS EPITHELIAL CELL URINE <1 /hpf (0-5); URINE COLOR YELLOW (YELLW/STRAW); URINE LEUKOCYTE ESTERASE NEG (NEG)
[2017-04-09 13:31] LABS: ALBUMIN 3.6 GM/DL (3.4-5.0); ALT (GPT) 32 U/L (12-78); AST (GOT) 26 U/L (15-37); BICARBONATE 27.5 MEQ/L (21.0-32.0); BLOOD UREA NITROGEN 18 MG/DL (7-18); CALCIUM 8.3 MG/DL (8.5-10.1); CHLORIDE 107 MEQ/L (98-107); CREATININE 1.37 MG/DL (0.60-1.30); GLOMERULAR FILTRATION RATE 50 ML/MIN (>89); GLUCOSE,RANDOM 89 MG/DL (74-106); SODIUM (NA) 140 MEQ/L (136-145)
[2017-04-09 13:41] LABS: ALKALINE PHOSPHATASE 76 U/L (45-117); TOTAL BILIRUBIN ADULT 0.6 MG/DL (0.2-1.0); TOTAL PROTEIN 7.6 GM/DL (6.4-8.2)
[2017-04-09 18:47] VITALS: BP 129/78; PULSE 58; RESP 18; O2SAT 100
[2017-04-09] MEDS ORDERED: ALUMINUM/MAGNESIUM/SIMETH 30 ML CUP PO PRN (21:00)
[2017-04-09] MEDS ORDERED: MAGNESIUM HYDROXIDE SUSP 30 ML CUP PO PRN (21:00)
[2017-04-09] MEDS ORDERED: ACETAMINOPHEN 325 MG TAB PO PRN (21:00)
[2017-04-09 22:55] VITALS: BP 158/86; PULSE 54; RESP 16; TEMP 97.6; O2SAT 98
[2017-04-10 06:00] VITALS: BP 146/75; PULSE 66; RESP 18; TEMP 97.6; O2SAT 98
[2017-04-10] MEDS: CETIRIZINE HCL 10 MG TAB PO SCH (09:22)
[2017-04-10] MEDS: QUEtiapine FUMARATE 25 MG TAB PO SCH ×3 (09:22→21:16)
[2017-04-10] MEDS: CHOLECALCIFEROL (VIT D3) 1000 UNIT TAB PO SCH (11:01)
--- NOTE | 2017-04-10 16:13 | PD.CONS ---
HPI Service [facility] Consult Requested By DR SMITH Reason for Consult MEDICAL MANAGEMENT AND HIS CHRONIC RENAL INSUFFICIENCY Primary Care Physician Roberto Alatorre MD Diagnoses: (1) Renal insufficiency (2) Dementia (3) Alzheimer's dementia with behavioral disturbance (4) Dementia in other diseases classified elsewhere with behavioral disturbance History of Present Illness We have been consult regarding renal insufficiency that is noted to be chronic upon chart review The patient is a 81-year-old male who was originally brought into the emergency department via police as a Palm act. Per the police report patient was at the main terminal at the airport when the officer was contacted by the patient's Humaira. The brought the patient to the airport he wanted to buy a ticket to [place]. But then patient has Alzheimer's dementia and disease has not taken any of his medications that are to help him with his anger related to be Alzheimer's. Plan the patient was driving him to the airport when he became agitated advised him that he had no money to buy a ticket to go to [place]. Patient then grabbed in chart the steering wheel while the vehicle was being driven by the . Patient has a history of Alzheimer's. Patient does not take his home medications. Patient appears per chart review to have chronic renal insufficiency and his renal functions are stable Patient is not able to give much information due to his Alzheimer's Have discussed with patient and story teller of Systems ROS Limitations: Altered Mental Status Constitutional: DENIES: Diaphoretic episodes, Fatigue, Fever Endocrine: DENIES: Heat/cold intolerance, Polydipsia, Polyuria Eyes: DENIES: Blurred vision, Diplopia, Eye inflammation Ears, nose, mouth, throat: DENIES: Tinnitus, Hearing loss, Vertigo Respiratory: DENIES: Apneas, Cough, Snoring, Wheezing Cardiovascular: DENIES: Chest pain, Palpitations, Syncope, Dyspnea on Exertion Gastrointestinal: DENIES: Abdominal pain, Black stools Musculoskeletal: DENIES: Joint pain, Muscle aches, Stiffness, Joint Swelling Integumentary: DENIES: Abnormal pigmentation, Nail changes, Pruritus, Rash Hematologic/lymphatic: DENIES: Bruising, Lymphadenopathy Immunologic/allergic: DENIES: Eczema, Urticaria Neurologic: DENIES: Abnormal gait Psychiatric: COMPLAINS OF: Anxiety, Confusion, Agitation Except as stated in HPI: all other systems reviewed are Neg Past Family Social History Allergies: Coded Allergies: codeine (Unverified Allergy, Severe, nausea and vomiting, 03/12/17) Sulfa (Sulfonamide Antibiotics) (Unverified Allergy, Mild, Anaphylaxis, ) penicillin G (Unverified Allergy, Mild, Anaphylaxis, 03/12/17) Past Medical History Dementia Alzheimer's dementia Heart disease Hypertension Renal insufficiency Hyperlipidemia Past Surgical History inguinal hernia repair Cardiac catheterization Reported Medications Reported Meds & Active Scripts Active Seroquel (Quetiapine Fumarate) 25 Mg Tab 25 Mg PO TID@0900,1399,1999 Cetirizine (Cetirizine HCl) 10 Mg Tab 10 Mg PO DAILY Gnp Vitamin D3 Extra Stre (Cholecalciferol) 1,000 Unit Tab 1,000 Units PO DAILY 15 Days Atorvastatin (Atorvastatin Calcium) 40 Mg Tab 40 Mg PO HS 15 Days Active Ordered Medications Current Medications Acetaminophen (Tylenol) 650 mg Q4H PRN PO Pain 1-5 or Temp >101F; Start at 21:00 Magnesium Hydroxide (Milk Of Magnesia Liq) 30 ml DAILY PRN PO CONSTIPATION; Start 04/09/17 at 21:00 Al Hydrox/Mg Hydrox/Simethicone (Mag-Al Plus Susp Liq) 30 ml Q6H PRN PO DYSPEPSIA; Start 04/09/17 at 21:00 Atorvastatin Calcium (Lipitor) 40 mg HS PO ; Start 04/10/17 at 21:00 Cetirizine HCl (ZyrTEC) 10 mg DAILY PO Last administered on 04/10/17at 09:22; Start 04/10/17 at 09:00 Cholecalciferol (Vitamin D3) 1,000 units DAILY PO Last administered on at 11:01; Start 04/10/17 at 09:00 Quetiapine Fumarate (SEROquel) 25 mg TID@0900,1399,1999 PO Last administered on 04/10/17at 14:38; Start 04/10/17 at 09:00 Family History Coronary artery disease Family history of myocardial infarctions Social History Lives with Unable to obtain if he smokes or drinks Doubt any illicit drugs Physical Exam Vital Signs Vital Signs Date Time Temp Pulse Resp B/P (MAP) Pulse Ox O2 Delivery O2 Flow Rate FiO2 04/10/17 06:00 97.6 66 18 146/75 (98) 98 04/09/17 22:55 97.6 54 16 158/86 (110) 98 04/09/17 18:47 58 18 129/78 (95) 100 Room Air Physical Exam GENERAL: This is a well-nourished, well-developed patient, in no apparent distress. Confused SKIN: No rashes, ecchymoses or lesions. Cool and dry. HEAD: Atraumatic. Normocephalic. No temporal or scalp tenderness. EYES: Pupils equal round and reactive. Extraocular motions intact. No scleral icterus. No injection or drainage. ENT: Nose without bleeding, purulent drainage or septal hematoma. Throat without erythema, tonsillar hypertrophy or exudate. Uvula midline. Airway patent. NECK: Trachea midline. No JVD or lymphadenopathy. Supple, nontender, no meningeal signs. CARDIOVASCULAR: Regular rate and rhythm without murmurs, gallops, or rubs. RESPIRATORY: Clear to auscultation. Breath sounds equal bilaterally. No wheezes , rales, or rhonchi. GASTROINTESTINAL: Abdomen soft, non-tender, nondistended. No hepato-splenomegaly , or palpable masses. No guarding. MUSCULOSKELETAL: Extremities without clubbing, cyanosis, or edema. No joint tenderness, effusion, or edema noted. No calf tenderness. Negative Homans sign bilaterally. NEUROLOGICAL: Awake and alert. Cranial nerves II through XII intact. Motor and sensory grossly within normal limits. Five out of 5 muscle strength in all muscle groups. Normal speech. Insight and judgment is limited Mood and behavior is inappropriate Laboratory Laboratory Tests Test 04/09/17 12:49 White Blood Count 5.9 TH/MM3 Red Blood Count 4.33 MIL/MM3 Hemoglobin 13.4 GM/DL Hematocrit 39.4 % Mean Corpuscular Volume 91.0 FL Mean Corpuscular Hemoglobin 31.0 PG Mean Corpuscular Hemoglobin Concent 34.1 % Red Cell Distribution Width 13.3 % Platelet Count 191 TH/MM3 Mean Platelet Volume 6.9 FL Neutrophils (%) (Auto) 64.1 % Lymphocytes (%) (Auto) 18.7 % Monocytes (%) (Auto) 8.5 % Eosinophils (%) (Auto) 7.6 % Basophils (%) (Auto) 1.1 % Neutrophils # (Auto) 3.8 TH/MM3 Lymphocytes # (Auto) 1.1 TH/MM3 Monocytes # (Auto) 0.5 TH/MM3 Eosinophils # (Auto) 0.4 TH/MM3 Basophils # (Auto) 0.1 TH/MM3 CBC Comment DIFF FINAL Differential Comment Urine Color YELLOW Urine Turbidity CLEAR Urine pH 5.5 Urine Specific [place] 1.025 Urine Protein NEG mg/dL Urine Glucose (UA) NEG mg/dL Urine Ketones NEG mg/dL Urine Occult Blood NEG Urine Nitrite NEG Urine Bilirubin NEG Urine Urobilinogen 2.0 MG/DL Urine Leukocyte Esterase NEG Urine RBC LESS THAN 1 /hpf Urine WBC LESS THAN 1 /hpf Urine Squamous Epithelial Cells <1 /hpf Urine Mucus MOD /lpf Microscopic Urinalysis Comment CULT NOT INDICATED Blood Urea Nitrogen 18 MG/DL Creatinine 1.37 MG/DL Random Glucose 89 MG/DL Total Protein 7.6 GM/DL Albumin 3.6 GM/DL Calcium Level 8.3 MG/DL Alkaline Phosphatase 76 U/L Aspartate Amino Transf (AST/SGOT) 26 U/L Alanine Aminotransferase (ALT/SGPT) 32 U/L Total Bilirubin 0.6 MG/DL Sodium Level 140 MEQ/L Potassium Level 4.1 MEQ/L Chloride Level 107 MEQ/L Carbon Dioxide Level 27.5 MEQ/L Anion Gap 6 MEQ/L Estimat Glomerular Filtration Rate 50 ML/MIN Thyroid Stimulating Hormone 3rd Gen 1.830 uIU/ML Urine Opiates Screen NEG Urine Barbiturates Screen NEG Urine Amphetamines Screen NEG Urine Benzodiazepines Screen NEG Urine Cocaine Screen NEG Urine Cannabinoids Screen NEG Ethyl Alcohol Level LESS THAN 3 MG/DL Result Diagram: 04/09/17 1249 04/09/17 1249 Assessment and Plan Problem List: (1) Dementia in other diseases classified elsewhere with behavioral disturbance ICD Code: F02.81 - Dementia in other diseases classified elsewhere with behavioral disturbance (2) Renal insufficiency ICD Code: N28.9 - Disorder of kidney and ureter, unspecified (3) Dementia ICD Code: F03.90 - Unspecified dementia without behavioral disturbance (4) Alzheimer's dementia with behavioral disturbance ICD Code: G30.9 - Alzheimer's disease, unspecified; F02.81 - Dementia in other diseases classified elsewhere with behavioral disturbance Assessment and Plan Alzheimer's dementia will defer to psychiatry Chronic renal insufficiency has been ongoing since patient's been here over the past couple months continue current care History of hyperlipidemia continue on his statin Resume home medications We'll sign off at this time Code Status FULL CODE Discussed Condition With RN and patient Problem Qualifiers (1) Alzheimer's dementia with behavioral disturbance: Qualified Codes: G30.9 - Alzheimer's disease, unspecified; F02.81 - Dementia in other diseases classified elsewhere with behavioral disturbance Tomas Rosenbaum DO Apr 10, 2017 16:13
--- NOTE | 2017-04-10 17:10 | HHI.HP ---
Provisional Diagnosis Admission Date Apr 09, 2017 at 21:03 [place] I. Alzheimer dementia; Dementia with behavioral disturbances Certification of Person's Competence To Provide Express and Informed Consent I have personally examined Santi Meadows , a person being served at [facility] on, Apr 10, 2017 17:09. Express and informed consent means consent voluntarily given in writing, by a competent person, after sufficient explanation and disclosure of the subject matter involved to enable the person to make a knowing and willful decision without any element of force, fraud, deceit, duress, or other form of constraint or coercion. This person is 18 years of age or older, is not now known to be incompetent to consent to treatment with a guardian advocate, and does not have a health care surrogate or proxy currently making medical treatment decisions. I have found this person to be one of the following: [] Competent to provide express and informed consent, as defined above, for voluntary admission to this facility and is competent to provide express and informed consent for treatment. He/she has the consistent capacity to make well reasoned, willful, and knowing decisions concerning his or her medical or mental health treatment. The person fully and consistently understands the purpose of the admission for examination/placement and is fully capable of personally exercising all rights assured [place] [x] Incompetent to provide express and informed consent to voluntary admission, and this is incompetent to provide express and informed consent to treatment. The person must be transferred to involuntary status and a petition for a guardian advocate filed with the Circuit Court. [] Refusing to provide express and informed consent to voluntary admission but is competent to provide express and informed consent for treatment. The person must be discharged or transferred to involuntary status. Form shall be completed within 24 hours of a person's arrival at the receiving facility and filed in the clinical record of each person: 1. Admitted on a voluntary basis 2. Permitted to provide express and informed consent to his/her own treatment 3. Allowed to transfer from involuntary to voluntary status 4. Prior to permitting a person to consent to his or her own treatment after having been previously found incompetent to consent to treatment. History of Present Illness Capacity: Lacks Capacity HPI Patient is a 81 y/o [place] man, , unemployed with past psychiatric history of Alzheimer dementia, prior psychiatric admissions, no prior suicide attempt who was brought in under after patient became agitated when brought him to the airport and was aggressive when he was told there was no money to buy a ticket in the context of noncompliance to medications which he was admitted to the psychiatry unit for further evaluation and management. Patient was found sitting on hospital bed, calm and cooperative. He states that he was at [facility] but doesn't recall all the events prior to his admissions. He is A&O x 1 (person only). He states that he wanted to go to [place]. He later states that he is currently at home and living alone and had been . He admits to having two children but cannot remember their names. He reports feeling a little depressed but denies SI or HI. Family history: denies Past psychiatric history: dementia, prior admission, no prior SA Substance use history: denies Past medical history: CAD, CT Allergies: sulfas, codeine, penicillin G Social history: , domiciled with , unemployed on SSI Review of Systems Except as stated in HPI: all other systems reviewed are Neg Past Psych History Psychological trauma history unknown Violence risk - others (6 mos) elevated due to recent aggressive behavior Violence risk - self (6 mos) low Substance Abuse History Drugs/Alcohol past 12 months none Past Family Social History Coded Allergies: codeine (Unverified Allergy, Severe, nausea and vomiting, 03/12/17) Sulfa (Sulfonamide Antibiotics) (Unverified Allergy, Mild, Anaphylaxis, ) penicillin G (Unverified Allergy, Mild, Anaphylaxis, 03/12/17) Active Scripts Quetiapine (Seroquel) 25 Mg Tab, 25 MG PO TID@0900,1400,2000 for health, #90 TAB 0 Refills Prov:Jose Luis Rowley MD 03/24/17 Cetirizine (Cetirizine) 10 Mg Tab, 10 MG PO DAILY for health, #30 TAB 0 Refills Prov:Jose Luis Rowley MD 03/24/17 Cholecalciferol (Gnp Vitamin D3 Extra Stre) 1,000 Unit Tab, 1000 UNITS PO DAILY for Vitamin D supplement for 15 Days, #30 TAB 0 Refills Prov:Jose Luis Rowley MD 03/24/17 Atorvastatin (Atorvastatin) 40 Mg Tab, 40 MG PO HS for Cholesterol Management for 15 Days, #30 TAB 0 Refills Prov:Jose Luis Rowley MD 03/24/17 Current Medications Medications (Trade) Dose Ordered Sig/Conor Route Start Time Stop Time Status Last Admin (Tylenol) 650 mg Q4H PRN PO 04/09/17 21:00 (Milk Of Magnesia Liq) 30 ml DAILY PRN PO 04/09/17 21:00 (Mag-Al Plus Susp Liq) 30 ml Q6H PRN PO 04/09/17 21:00 (Lipitor) 40 mg HS PO 04/10/17 21:00 (ZyrTEC) 10 mg DAILY PO 04/10/17 09:00 04/10/17 09:22 (Vitamin D3) 1,000 units DAILY PO 04/10/17 09:00 04/10/17 11:01 (SEROquel) 25 mg TID@0900,1400,2000 PO 04/10/17 09:00 04/10/17 14:38 Social History , domiciled with , unemployed on [place] Patient's Strengths (min. 2) verbal and communicative Physical Exam Patient found to be in no acute distress, no noted gross motor abnormalities, no tremors of EPS, no noted psychomotor agitation of retardation. Vital Signs Vital Signs Date Time Temp Pulse Resp B/P (MAP) Pulse Ox O2 Delivery O2 Flow Rate FiO2 04/10/17 06:00 97.6 66 18 146/75 (98) 98 04/09/17 18:47 Room Air I/O 04/10/17 04/10/17 04/11/17 08:00 16:00 00:00 Intake Total 0 ml 240 ml Balance 0 ml 240 ml Mental Status Examination Appearance: Appropriate Consciousness: Alert, Vigilant Orientation: Person Motor Activity: Normal gait Speech: Unremarkable Language: Adequate Fund of Knowledge: Inadequate Attention and Concentration: Adequate Memory: Impaired Mood: Anxious Affect: Irritable Thought Process & Associations: Linear Thought Content: Appropriate Hallucination Type: None Delusion Type: None Suicidal Ideation: No Suicidal Plan: No Suicidal Intention: No Homicidal Ideation: No Homicidal Plan: No Homicidal Intention: No Insight: Poor Judgment: Poor Assessment & Plan Problem List: (1) Alzheimer's dementia with behavioral disturbance ICD Codes: G30.9 - Alzheimer's disease, unspecified; F02.81 - Dementia in other diseases classified elsewhere with behavioral disturbance (2) Dementia in other diseases classified elsewhere with behavioral disturbance ICD Codes: F02.81 - Dementia in other diseases classified elsewhere with behavioral disturbance Assessment & Plan Estimated LOS: 5-7 days. Patient is a 81 y/o man who carries a diagnosis of Alzheimer's dementia and brought in under BA due to recent aggressive behavior in the context of medication noncompliance. Patient noted to be confused and somewhat paranoid. Will restart quetiapine 25mg PO TID and continue rest of medications. Consult with hospitalist requested. Discharge planning in progress. Problem Qualifiers (1) Alzheimer's dementia with behavioral disturbance: Qualified Codes: G30.9 - Alzheimer's disease, unspecified; F02.81 - Dementia in other diseases classified elsewhere with behavioral disturbance Roberto Lopez MD Apr 10, 2017 17:10
[2017-04-10 18:45] VITALS: BP 162/79; PULSE 60; RESP 18; TEMP 97.3; O2SAT 98
[2017-04-10] MEDS: ATORVASTATIN 40 MG TAB PO SCH (21:16)
[2017-04-11 06:04] VITALS: BP 133/60; PULSE 68; RESP 16; TEMP 97.2; O2SAT 92
[2017-04-11] MEDS: CETIRIZINE HCL 10 MG TAB PO SCH (09:32)
[2017-04-11] MEDS: QUEtiapine FUMARATE 25 MG TAB PO SCH ×3 (09:32→20:00)
[2017-04-11] MEDS: CHOLECALCIFEROL (VIT D3) 1000 UNIT TAB PO SCH (09:32)
[2017-04-11 10:36] LABS: BICARBONATE 26.3 MEQ/L (21.0-32.0); BLOOD UREA NITROGEN 23 MG/DL (7-18); CHLORIDE 105 MEQ/L (98-107); CREATININE 1.45 MG/DL (0.60-1.30); GLOMERULAR FILTRATION RATE 47 ML/MIN (>89); GLUCOSE,RANDOM 78 MG/DL (74-106); SODIUM (NA) 139 MEQ/L (136-145)
[2017-04-11 10:37] LABS: CHOLESTEROL 149 MG/DL (120-200); TRIGLYCERIDES 114 MG/DL (42-150)
[2017-04-11 10:40] LABS: HDL CHOLESTEROL 34.6 MG/DL (40.0-60.0); LDL CHOLESTEROL 92 MG/DL (0-99)
--- NOTE | 2017-04-11 13:56 | HHI.PR ---
Subjective Remarks We have been consult regarding renal insufficiency that is noted to be chronic upon chart review The patient is a 81-year-old male who was originally brought into the emergency department via police as a [place] act. Per the police report patient was at the main terminal at the airport when the officer was contacted by the patient's Humaira. The brought the patient to the airport he wanted to buy a ticket to [place]. But then patient has Alzheimer's dementia and disease has not taken any of his medications that are to help him with his anger related to be Alzheimer's. Plan the patient was driving him to the airport when he became agitated advised him that he had no money to buy a ticket to go to [place]. Patient then grabbed in chart the steering wheel while the vehicle was being driven by the . Patient has a history of Alzheimer's. Patient does not take his home medications. Patient appears per chart review to have chronic renal insufficiency and his renal functions are stable Patient is not able to give much information due to his Alzheimer's Have discussed with patient and RN 1-13 NO NEW COMPLAINTS CONFUSED Objective Vitals Vital Signs Date Time Temp Pulse Resp B/P (MAP) Pulse Ox O2 Delivery O2 Flow Rate FiO2 04/11/17 06:04 97.2 68 16 133/60 (84) 92 04/10/17 18:45 97.3 60 18 162/79 (106) 98 I/O 04/10/17 04/10/17 04/10/17 04/11/17 04/11/17 04/11/17 07:00 15:00 23:00 07:00 15:00 23:00 Intake Total 240 ml Balance 240 ml Intake Oral 240 ml Result Diagram: 04/09/17 1249 04/11/17 0920 Other Results Laboratory Tests Test 04/09/17 12:49 04/11/17 09:20 White Blood Count 5.9 TH/MM3 Red Blood Count 4.33 MIL/MM3 Hemoglobin 13.4 GM/DL Hematocrit 39.4 % Mean Corpuscular Volume 91.0 FL Mean Corpuscular Hemoglobin 31.0 PG Mean Corpuscular Hemoglobin Concent 34.1 % Red Cell Distribution Width 13.3 % Platelet Count 191 TH/MM3 Mean Platelet Volume 6.9 FL Neutrophils (%) (Auto) 64.1 % Lymphocytes (%) (Auto) 18.7 % Monocytes (%) (Auto) 8.5 % Eosinophils (%) (Auto) 7.6 % Basophils (%) (Auto) 1.1 % Neutrophils # (Auto) 3.8 TH/MM3 Lymphocytes # (Auto) 1.1 TH/MM3 Monocytes # (Auto) 0.5 TH/MM3 Eosinophils # (Auto) 0.4 TH/MM3 Basophils # (Auto) 0.1 TH/MM3 CBC Comment DIFF FINAL Differential Comment Urine Color YELLOW Urine Turbidity CLEAR Urine pH 5.5 Urine Specific [place] 1.025 Urine Protein NEG mg/dL Urine Glucose (UA) NEG mg/dL Urine Ketones NEG mg/dL Urine Occult Blood NEG Urine Nitrite NEG Urine Bilirubin NEG Urine Urobilinogen 2.0 MG/DL Urine Leukocyte Esterase NEG Urine RBC LESS THAN 1 /hpf Urine WBC LESS THAN 1 /hpf Urine Squamous Epithelial Cells <1 /hpf Urine Mucus MOD /lpf Microscopic Urinalysis Comment CULT NOT INDICATED Blood Urea Nitrogen 18 MG/DL 23 MG/DL Creatinine 1.37 MG/DL 1.45 MG/DL Random Glucose 89 MG/DL 78 MG/DL Total Protein 7.6 GM/DL Albumin 3.6 GM/DL Calcium Level 8.3 MG/DL 9.0 MG/DL Alkaline Phosphatase 76 U/L Aspartate Amino Transf (AST/SGOT) 26 U/L Alanine Aminotransferase (ALT/SGPT) 32 U/L Total Bilirubin 0.6 MG/DL Sodium Level 140 MEQ/L 139 MEQ/L Potassium Level 4.1 MEQ/L 3.8 MEQ/L Chloride Level 107 MEQ/L 105 MEQ/L Carbon Dioxide Level 27.5 MEQ/L 26.3 MEQ/L Anion Gap 6 MEQ/L 8 MEQ/L Estimat Glomerular Filtration Rate 50 ML/MIN 47 ML/MIN Thyroid Stimulating Hormone 3rd Gen 1.830 uIU/ML Urine Opiates Screen NEG Urine Barbiturates Screen NEG Urine Amphetamines Screen NEG Urine Benzodiazepines Screen NEG Urine Cocaine Screen NEG Urine Cannabinoids Screen NEG Ethyl Alcohol Level LESS THAN 3 MG/DL Triglycerides Level 114 MG/DL Cholesterol Level 149 MG/DL LDL Cholesterol 92 MG/DL HDL Cholesterol 34.6 MG/DL Cholesterol/HDL Ratio 4.30 RATIO Objective Remarks GENERAL: SKIN: Warm and dry. HEAD: Atraumatic. Normocephalic. EYES: Pupils equal and round. No scleral icterus. No injection or drainage. ENT: No nasal bleeding or discharge. Mucous membranes pink and moist. NECK: Trachea midline. No JVD. CARDIOVASCULAR: Regular rate and rhythm. RESPIRATORY: No accessory muscle use. Clear to auscultation. Breath sounds equal bilaterally. GASTROINTESTINAL: Abdomen soft, non-tender, nondistended. Hepatic and splenic margins not palpable. MUSCULOSKELETAL: Extremities without clubbing, cyanosis, or edema. No obvious deformities. NEUROLOGICAL: Awake and alert. No obvious cranial nerve deficits. Motor grossly within normal limits. Five out of 5 muscle strength in the arms and legs. Normal speech. PSYCHIATRIC: Appropriate mood and affect; insight and judgment normal. Procedures NONE Medications and IVs Current Medications Acetaminophen (Tylenol) 650 mg Q4H PRN PO Pain 1-5 or Temp >101F; Start at 21:00 Magnesium Hydroxide (Milk Of Magnesia Liq) 30 ml DAILY PRN PO CONSTIPATION; Start 04/09/17 at 21:00 Al Hydrox/Mg Hydrox/Simethicone (Mag-Al Plus Susp Liq) 30 ml Q6H PRN PO DYSPEPSIA; Start 04/09/17 at 21:00 Atorvastatin Calcium (Lipitor) 40 mg HS PO Last administered on 04/10/17at 21:16 ; Start 04/10/17 at 21:00 Cetirizine HCl (ZyrTEC) 10 mg DAILY PO Last administered on 04/11/17at 09:32; Start 04/10/17 at 09:00 Cholecalciferol (Vitamin D3) 1,000 units DAILY PO Last administered on at 09:32; Start 04/10/17 at 09:00 Quetiapine Fumarate (SEROquel) 25 mg TID@0900,1400,2000 PO Last administered on 04/11/17at 13:37; Start 04/10/17 at 09:00 A/P Problem List: (1) Dementia in other diseases classified elsewhere with behavioral disturbance ICD Code: F02.81 - Dementia in other diseases classified elsewhere with behavioral disturbance (2) Renal insufficiency ICD Code: N28.9 - Disorder of kidney and ureter, unspecified (3) Dementia ICD Code: F03.90 - Unspecified dementia without behavioral disturbance (4) Alzheimer's dementia with behavioral disturbance ICD Code: G30.9 - Alzheimer's disease, unspecified; F02.81 - Dementia in other diseases classified elsewhere with behavioral disturbance Assessment and Plan Assessment and Plan Alzheimer's dementia will defer to psychiatry Chronic renal insufficiency has been ongoing since patient's been here over the past couple months continue current care- ENCOURAGE PO FLUID INTAKE History of hyperlipidemia continue on his statin Resume home medications Discharge Planning AM LABS ON THURSDAY Problem Qualifiers (1) Alzheimer's dementia with behavioral disturbance: Qualified Codes: G30.9 - Alzheimer's disease, unspecified; F02.81 - Dementia in other diseases classified elsewhere with behavioral disturbance Tomas Rosenbaum DO Apr 11, 2017 13:56
--- NOTE | 2017-04-11 15:33 | PD.PSY.CON ---
Provisional Diagnosis Admission Date Apr 09, 2017 at 21:03 [place]. Alzheimer dementia; Dementia with behavioral disturbances History of Present Illness Service Psychiatry Consult Requested By Psychiatry Reason for Consult 2nd opinion Primary Care Physician Roberto Alatorre MD HPI Pt seen and discussed with staff. He was admitted to [facility] [place] after he became agitated and aggressive [place] the airport. Staff state that pt has been confused and was agitated yesterday. He has been calm today but remains confused. He is guarded in interview and interacts minimally. No SI/HI . Past psychiatric history: dementia, prior admission, no prior SA Substance use history: denies Past medical history: CAD, [place] Allergies: sulfas, codeine, penicillin G Social history: , domiciled with , unemployed on SSI Past Family Social History Coded Allergies: codeine (Unverified Allergy, Severe, nausea and vomiting, 03/12/17) Sulfa (Sulfonamide Antibiotics) (Unverified Allergy, Mild, Anaphylaxis, ) penicillin G (Unverified Allergy, Mild, Anaphylaxis, 03/12/17) Active Scripts Quetiapine (Seroquel) 25 Mg Tab, 25 MG PO TID@0900,1400,2000 for health, #90 TAB 0 Refills Prov:Jose Luis Rowley MD 03/24/17 Cetirizine (Cetirizine) 10 Mg Tab, 10 MG PO DAILY for health, #30 TAB 0 Refills Prov:Jose Luis Rowley MD 03/24/17 Cholecalciferol (Gnp Vitamin D3 Extra Stre) 1,000 Unit Tab, 1000 UNITS PO DAILY for Vitamin D supplement for 15 Days, #30 TAB 0 Refills Prov:Jose Luis Rowley MD 03/24/17 Atorvastatin (Atorvastatin) 40 Mg Tab, 40 MG PO HS for Cholesterol Management for 15 Days, #30 TAB 0 Refills Prov:Jose Luis Rowley MD 03/24/17 Current Medications Medications (Trade) Dose Ordered Sig/Conor Route Start Time Stop Time Status Last Admin (Tylenol) 650 mg Q4H PRN PO 04/09/17 21:00 (Milk Of Magnesia Liq) 30 ml DAILY PRN PO 04/09/17 21:00 (Mag-Al Plus Susp Liq) 30 ml Q6H PRN PO 04/09/17 21:00 (Lipitor) 40 mg HS PO 04/10/17 21:00 04/10/17 21:16 (ZyrTEC) 10 mg DAILY PO 04/10/17 09:00 04/11/17 09:32 (Vitamin D3) 1,000 units DAILY PO 04/10/17 09:00 04/11/17 09:32 (SEROquel) 25 mg TID@0900,1400,2000 PO 04/10/17 09:00 04/11/17 13:37 Patient's Strengths (min. 2) verbal and communicative Physical Exam Vital Signs Vital Signs Date Time Temp Pulse Resp B/P (MAP) Pulse Ox O2 Delivery O2 Flow Rate FiO2 04/11/17 06:04 97.2 68 16 133/60 (84) 92 04/09/17 18:47 Room Air Lab Results Test 04/11/17 09:20 Blood Urea Nitrogen 23 MG/DL Creatinine 1.45 MG/DL Random Glucose 78 MG/DL Calcium Level 9.0 MG/DL Sodium Level 139 MEQ/L Potassium Level 3.8 MEQ/L Chloride Level 105 MEQ/L Carbon Dioxide Level 26.3 MEQ/L Anion Gap 8 MEQ/L Estimat Glomerular Filtration Rate 47 ML/MIN Triglycerides Level 114 MG/DL Cholesterol Level 149 MG/DL LDL Cholesterol 92 MG/DL HDL Cholesterol 34.6 MG/DL Cholesterol/HDL Ratio 4.30 RATIO Mental Status Examination Appearance: Appropriate Consciousness: Alert, Vigilant Orientation: Person Motor Activity: Normal gait Speech: Unremarkable Language: Adequate Fund of Knowledge: Inadequate Attention and Concentration: Adequate Memory: Impaired Mood: Anxious, Irritable Affect: Irritable Thought Process & Associations: Linear Thought Content: Appropriate Hallucination Type: None Delusion Type: None Suicidal Ideation: No Suicidal Plan: No Suicidal Intention: No Homicidal Ideation: No Homicidal Plan: No Homicidal Intention: No Insight: Poor Judgment: Poor Assessment & Plan Problem List: (1) Alzheimer's dementia with behavioral disturbance ICD Codes: G30.9 - Alzheimer's disease, unspecified; F02.81 - Dementia in other diseases classified elsewhere with behavioral disturbance (2) Dementia in other diseases classified elsewhere with behavioral disturbance ICD Codes: F02.81 - Dementia in other diseases classified elsewhere with behavioral disturbance Assessment & Plan I agree with involuntary hospitalization given recent aggression and cognitive impairments. Estimated LOS: days Problem Qualifiers (1) Alzheimer's dementia with behavioral disturbance: Qualified Codes: G30.9 - Alzheimer's disease, unspecified; F02.81 - Dementia in other diseases classified elsewhere with behavioral disturbance Adwoa Nicole MD Apr 11, 2017 15:33
[2017-04-11 18:26] VITALS: BP 160/77; PULSE 55; RESP 16; TEMP 97.2; O2SAT 99
[2017-04-11] MEDS: ATORVASTATIN 40 MG TAB PO SCH (21:00)
[2017-04-12] MEDS: QUEtiapine FUMARATE 25 MG TAB PO SCH ×3 (09:40→21:22)
[2017-04-12] MEDS: CHOLECALCIFEROL (VIT D3) 1000 UNIT TAB PO SCH (09:40)
[2017-04-12] MEDS: CETIRIZINE HCL 10 MG TAB PO SCH (09:40)
[2017-04-12 09:49] LABS: HEMOGLOBIN A1C 5.1 % (4.3-6.0)
--- NOTE | 2017-04-12 13:10 | HHI.PYPN ---
Subjective Remarks Pt seen and discussed with staff. He is pleasantly confused but has not been agitated. He continues to insist that staff have stolen his things. He is compliant with medications. No SI/HI Mental Status Examination Appearance: Appropriate Consciousness: Alert, Vigilant Orientation: Person Motor Activity: Normal gait Speech: Unremarkable Language: Adequate Fund of Knowledge: Inadequate Attention and Concentration: Adequate Memory: Impaired Mood: Anxious, Irritable Affect: Irritable Thought Process & Associations: Linear Thought Content: Appropriate Hallucination Type: None Delusion Type: None Suicidal Ideation: No Suicidal Plan: No Suicidal Intention: No Homicidal Ideation: No Homicidal Plan: No Homicidal Intention: No Insight: Poor Judgment: Poor Results Vitals/IOs Vital Signs Date Time Temp Pulse Resp B/P (MAP) Pulse Ox O2 Delivery O2 Flow Rate FiO2 04/11/17 18:26 97.2 55 16 160/77 (104) 99 04/09/17 18:47 Room Air Intake and Output 04/12/17 04/12/17 04/13/17 08:00 16:00 00:00 Intake Total 240 ml 240 ml Balance 240 ml 240 ml Assessment & Plan Problem List: (1) Alzheimer's dementia with behavioral disturbance ICD Codes: G30.9 - Alzheimer's disease, unspecified; F02.81 - Dementia in other diseases classified elsewhere with behavioral disturbance (2) Dementia in other diseases classified elsewhere with behavioral disturbance ICD Codes: F02.81 - Dementia in other diseases classified elsewhere with behavioral disturbance Assessment & Plan Continue current tx plan. Estimated LOS: days Justification for Cont. Inpt. risk of decompensation Problem Qualifiers (1) Alzheimer's dementia with behavioral disturbance: Qualified Codes: G30.9 - Alzheimer's disease, unspecified; F02.81 - Dementia in other diseases classified elsewhere with behavioral disturbance Adwoa Nicole MD Apr 12, 2017 13:10
--- NOTE | 2017-04-12 13:54 | HHI.PR ---
Subjective Remarks Follow-up visit on 81-year-old male with Alzheimer's dementia, chronic renal insufficiency, and hyperlipidemia. Patient seen and examined sitting in the hallway in no acute distress. He denies any fevers, chills, nausea, vomiting, diarrhea, chest pains, or shortness of breath. He remains confused and tells me that he does not get what he needs here. Objective Vitals Vital Signs Date Time Temp Pulse Resp B/P (MAP) Pulse Ox O2 Delivery O2 Flow Rate FiO2 04/11/17 18:26 97.2 55 16 160/77 (104) 99 I/O 04/11/17 04/11/17 04/11/17 04/12/17 04/12/17 04/12/17 07:00 15:00 23:00 07:00 15:00 23:00 Intake Total 480 ml Balance 480 ml Intake Oral 480 ml Result Diagram: 04/09/17 1249 04/11/17 0920 Objective Remarks GENERAL: Awake, alert, pleasant in no acute distress. SKIN: Warm and dry. HEAD: Atraumatic. Normocephalic. EYES: Pupils equal and round, reactive. ENT: No nasal bleeding or discharge. Mucous membranes pink and moist. NECK: Trachea midline. CARDIOVASCULAR: Regular rate and rhythm. No murmur appreciated. RESPIRATORY: Clear to auscultation. Breath sounds equal bilaterally. GASTROINTESTINAL: Abdomen soft, non-tender, nondistended, normoactive bowel sounds. MUSCULOSKELETAL: No obvious deformities. No clubbing. No cyanosis. No edema. NEUROLOGICAL: Awake and alert. No obvious cranial nerve deficits. Motor grossly within normal limits. Normal speech. Patient is oriented to self, confused. Procedures NONE A/P Problem List: (1) Dementia in other diseases classified elsewhere with behavioral disturbance ICD Code: F02.81 - Dementia in other diseases classified elsewhere with behavioral disturbance (2) Renal insufficiency ICD Code: N28.9 - Disorder of kidney and ureter, unspecified (3) Dementia ICD Code: F03.90 - Unspecified dementia without behavioral disturbance (4) Alzheimer's dementia with behavioral disturbance ICD Code: G30.9 - Alzheimer's disease, unspecified; F02.81 - Dementia in other diseases classified elsewhere with behavioral disturbance Assessment and Plan 81-year-old with Alzheimer's dementia admitted to inpatient psychiatry, history of chronic renal insufficiency, hyperlipidemia. Alzheimer's dementia - Treatment per psychiatry Chronic kidney insufficiency - Chronic and ongoing issue, looking back through EMR as far as 2008 patient' s creatinine will range from 1.37-1.52 - Encourage by mouth intake - Patient not a diabetic hemoglobin A1c from 04/11/17 was 5.1 CAD Hyperlipidemia HTN - Continue statin. - Looks like patient's blood pressures in the afternoon will rise 160/70'S continue to monitor. Consider adding clonidine as needed. DVT prophylaxis-patient ambulating Discussed with nurse Problem Qualifiers (1) Alzheimer's dementia with behavioral disturbance: Qualified Codes: G30.9 - Alzheimer's disease, unspecified; F02.81 - Dementia in other diseases classified elsewhere with behavioral disturbance Loretta Bernard Apr 12, 2017 13:54
[2017-04-12 17:00] VITALS: BP 150/72; PULSE 55; RESP 16; TEMP 97.4; O2SAT 97
[2017-04-12] MEDS: ATORVASTATIN 40 MG TAB PO SCH (21:22)
[2017-04-13] MEDS: CETIRIZINE HCL 10 MG TAB PO SCH (08:38)
[2017-04-13] MEDS: QUEtiapine FUMARATE 25 MG TAB PO SCH ×3 (08:38→21:07)
[2017-04-13] MEDS: CHOLECALCIFEROL (VIT D3) 1000 UNIT TAB PO SCH (08:38)
[2017-04-13] MEDS: hydrALAZINE HCL 25 MG TAB PO SCH ×2 (08:52→21:07)
--- NOTE | 2017-04-13 10:49 | HHI.PYPN ---
Subjective Remarks Patient seen for follow-up, chart reviewed. Discussion she staff reported patient had been compliant with medications but the BX is seeking, slept last night no aggressive behavior. Patient was found sitting in the room, cooperative. Patient states that he is feeling "not good" referring to not be permitted to obtain the rest of his belongings. Patient continues to be alert and oriented only to person not knowing where he is. Patient denies any physical place at this time reports eating and drinking well. Review of Systems Except as stated in HPI: all other systems reviewed are Neg Mental Status Examination Appearance: Appropriate Consciousness: Alert, Vigilant Orientation: Person Motor Activity: Normal gait Speech: Unremarkable Language: Adequate Fund of Knowledge: Inadequate Attention and Concentration: Adequate Memory: Impaired Mood: Anxious (somewhat) Affect: Irritable (somewhat) Thought Process & Associations: Linear, Other (concrete) Thought Content: Appropriate Hallucination Type: None Delusion Type: None Suicidal Ideation: No Suicidal Plan: No Suicidal Intention: No Homicidal Ideation: No Homicidal Plan: No Homicidal Intention: No Insight: Poor Judgment: Poor Results Vitals/IOs Vital Signs Date Time Temp Pulse Resp B/P (MAP) Pulse Ox O2 Delivery O2 Flow Rate FiO2 04/12/17 17:00 97.4 55 16 150/72 (98) 97 04/09/17 18:47 Room Air Intake and Output 04/13/17 04/13/17 04/14/17 08:00 16:00 00:00 Intake Total 120 ml Balance 120 ml Assessment & Plan Problem List: (1) Alzheimer's dementia with behavioral disturbance ICD Codes: G30.9 - Alzheimer's disease, unspecified; F02.81 - Dementia in other diseases classified elsewhere with behavioral disturbance (2) Dementia in other diseases classified elsewhere with behavioral disturbance ICD Codes: F02.81 - Dementia in other diseases classified elsewhere with behavioral disturbance Assessment & Plan Patient this time hasn't had any visual disturbances or agitation since admission. Patient to comply with treatment. Continue to monitor mood and behavior. Continue current treatment. Social work for psychosocial assessment as well as individual/group therapy and physician planning. Continue recommendations as per primary medical team. Discharge planning in progress Justification for Cont. Inpt. At risk for further decompensation at lower level of care Discharge Planning To be determined Problem Qualifiers (1) Alzheimer's dementia with behavioral disturbance: Qualified Codes: G30.9 - Alzheimer's disease, unspecified; F02.81 - Dementia in other diseases classified elsewhere with behavioral disturbance Roberto Lopez MD Apr 13, 2017 10:49
--- NOTE | 2017-04-13 11:52 | HHI.PR ---
Subjective Remarks Patient seen and examined, no acute event overnight Stable. BP slightly up. Objective Vitals Vital Signs Date Time Temp Pulse Resp B/P (MAP) Pulse Ox O2 Delivery O2 Flow Rate FiO2 04/12/17 17:00 97.4 55 16 150/72 (98) 97 I/O 04/12/17 04/12/17 04/12/17 04/13/17 04/13/17 04/13/17 07:00 15:00 23:00 07:00 15:00 23:00 Intake Total 480 ml 120 ml Balance 480 ml 120 ml Intake Oral 480 ml 120 ml Result Diagram: 04/09/17 1249 04/11/17 0920 Objective Remarks GENERAL: NAD SKIN: Warm and dry. HEAD: Normocephalic. EYES: No scleral icterus. No injection or drainage. NECK: Supple, trachea midline. No JVD or lymphadenopathy. CARDIOVASCULAR: Regular rate and rhythm without murmurs, gallops, or rubs. RESPIRATORY: Breath sounds equal bilaterally. No accessory muscle use. GASTROINTESTINAL: Abdomen soft, non-tender, nondistended. MUSCULOSKELETAL: No cyanosis, or edema. BACK: Nontender without obvious deformity. No CVA tenderness. Procedures NONE A/P Problem List: (1) Dementia in other diseases classified elsewhere with behavioral disturbance ICD Code: F02.81 - Dementia in other diseases classified elsewhere with behavioral disturbance (2) Renal insufficiency ICD Code: N28.9 - Disorder of kidney and ureter, unspecified (3) Dementia ICD Code: F03.90 - Unspecified dementia without behavioral disturbance (4) Alzheimer's dementia with behavioral disturbance ICD Code: G30.9 - Alzheimer's disease, unspecified; F02.81 - Dementia in other diseases classified elsewhere with behavioral disturbance Assessment and Plan 81 year-old man with Alzheimer's dementia - Treatment per psychiatry Chronic kidney insufficiency - Chronic and ongoing issue, looking back through EMR as far as 2008 patient' s creatinine will range from 1.37-1.52 - Encourage by mouth intake - Patient not a diabetic hemoglobin A1c from 04/11/17 was 5.1 CAD Hyperlipidemia HTN - Continue statin. - Start hydralazine 25 mg by mouth twice a day DVT prophylaxis-patient ambulating [facility] will sign off, reconsult when necessary Problem Qualifiers (1) Alzheimer's dementia with behavioral disturbance: Qualified Codes: G30.9 - Alzheimer's disease, unspecified; F02.81 - Dementia in other diseases classified elsewhere with behavioral disturbance Roberto Rainey MD Apr 13, 2017 11:52
[2017-04-13 17:45] VITALS: BP 137/64; PULSE 64; RESP 18; TEMP 97.1; O2SAT 98
[2017-04-13] MEDS: ATORVASTATIN 40 MG TAB PO SCH (21:07)
[2017-04-14 06:00] VITALS: BP 122/58; PULSE 86; RESP 17; TEMP 97.9; O2SAT 97
[2017-04-14] MEDS: hydrALAZINE HCL 25 MG TAB PO SCH ×2 (09:00→20:52)
[2017-04-14] MEDS: CETIRIZINE HCL 10 MG TAB PO SCH (09:02)
[2017-04-14] MEDS: CHOLECALCIFEROL (VIT D3) 1000 UNIT TAB PO SCH (09:02)
[2017-04-14] MEDS: QUEtiapine FUMARATE 25 MG TAB PO SCH ×4 (09:02→20:52)
--- NOTE | 2017-04-14 09:36 | HHI.PYPN ---
Subjective Remarks Patient seen for follow-up, chart review. Discussion nursing staff reported the patient has been also compliant with medications and occasionally refuse but that his medications this morning. Patient states the last and he try to get her nursing station as he saw some belongings and believed there were his. Patient was found standing in the doorway of his room noted, cooperative. Patient continues to be alert and oriented only to person, denies any physical complaints reporting feeling "okay" denies any depressive manic or psychotic symptoms. Patient continues to be perseverative on attending his belongings so he can go home. Review of Systems Except as stated in HPI: all other systems reviewed are Neg Mental Status Examination Appearance: Appropriate Consciousness: Alert, Vigilant Orientation: Person Motor Activity: Normal gait Speech: Unremarkable Language: Adequate Fund of Knowledge: Inadequate Attention and Concentration: Adequate Memory: Impaired Mood: Anxious (somewhat) Affect: Anxious Thought Process & Associations: Linear, Other (concrete) Thought Content: Appropriate, Preoccupations (wanting to go home) Hallucination Type: None Delusion Type: None Suicidal Ideation: No Suicidal Plan: No Suicidal Intention: No Homicidal Ideation: No Homicidal Plan: No Homicidal Intention: No Insight: Poor Judgment: Poor Results Vitals/IOs Vital Signs Date Time Temp Pulse Resp B/P (MAP) Pulse Ox O2 Delivery O2 Flow Rate FiO2 04/14/17 06:00 97.9 86 17 122/58 (79) 97 Assessment & Plan Problem List: (1) Alzheimer's dementia with behavioral disturbance ICD Codes: G30.9 - Alzheimer's disease, unspecified; F02.81 - Dementia in other diseases classified elsewhere with behavioral disturbance (2) Dementia in other diseases classified elsewhere with behavioral disturbance ICD Codes: F02.81 - Dementia in other diseases classified elsewhere with behavioral disturbance Assessment & Plan Patient at this time continues to be percent of on [place] discharge although he has not been active seeking as he has been in the past and he has been compliant with treatment. Continue current treatment. Continue recommendations from primary medical team. Discharge planning in progress Justification for Cont. Inpt. At risk for decompensation at lower level of care Discharge Planning To be determined Problem Qualifiers (1) Alzheimer's dementia with behavioral disturbance: Qualified Codes: G30.9 - Alzheimer's disease, unspecified; F02.81 - Dementia in other diseases classified elsewhere with behavioral disturbance Roberto Lopez MD Apr 14, 2017 09:36
[2017-04-14 17:56] VITALS: BP 125/60; PULSE 90; RESP 18; TEMP 98.4; O2SAT 98
[2017-04-14] MEDS: ATORVASTATIN 40 MG TAB PO SCH (20:52)
[2017-04-14 22:23] LABS: AUTOMATED NEUTROPHIL # 3.7 TH/MM3 (1.8-7.7); BASOPHIL # 0.1 TH/MM3 (0-0.2); BASOPHIL % 1.1 % (0.0-2.0); EOSINOPHIL # 0.4 TH/MM3 (0-0.4); EOSINOPHIL % 7.2 % (0.0-4.0); HEMOGLOBIN 12.7 GM/DL (13.0-17.0); LYMPH % 23.4 % (9.0-44.0); LYMPHOCYTE # 1.4 TH/MM3 (1.0-4.8); MEAN CELL VOLUME 89.8 FL (80.0-100.0); MEAN CORPUSCULAR HEMOGLOBIN 30.9 PG (27.0-34.0); MEAN CORPUSCULAR HGB CONC 34.4 % (32.0-36.0); MEAN PLATELET VOLUME 6.8 FL (7.0-11.0); MONOCYTE # 0.6 TH/MM3 (0-0.9); NEUT % 59.3 % (16.0-70.0); PLATELET COUNT 168 TH/MM3 (150-450); RED BLOOD COUNT 4.12 MIL/MM3 (4.50-5.90); RED CELL DISTRIBUTION WIDTH 13.3 % (11.6-17.2); WHITE BLOOD COUNT 6.2 TH/MM3 (4.0-11.0)
[2017-04-14 23:02] LABS: ALBUMIN 3.4 GM/DL (3.4-5.0); AST (GOT) 17 U/L (15-37); BICARBONATE 26.9 MEQ/L (21.0-32.0); BLOOD UREA NITROGEN 30 MG/DL (7-18); CALCIUM 8.7 MG/DL (8.5-10.1); CHLORIDE 108 MEQ/L (98-107); CREATININE 1.47 MG/DL (0.60-1.30); GLOMERULAR FILTRATION RATE 46 ML/MIN (>89); GLUCOSE,RANDOM 90 MG/DL (74-106); SODIUM (NA) 141 MEQ/L (136-145)
[2017-04-14 23:03] LABS: ALT (GPT) 30 U/L (12-78)
[2017-04-14 23:05] LABS: ALKALINE PHOSPHATASE 76 U/L (45-117); PHOSPHORUS 3.1 MG/DL (2.5-4.9); TOTAL BILIRUBIN ADULT 0.7 MG/DL (0.2-1.0)
[2017-04-15 06:19] VITALS: BP 120/64; PULSE 84; RESP 18; TEMP 98; O2SAT 97
[2017-04-15 08:45] VITALS: BP 120/60
[2017-04-15] MEDS: CETIRIZINE HCL 10 MG TAB PO SCH (08:57)
[2017-04-15] MEDS: hydrALAZINE HCL 25 MG TAB PO SCH ×2 (08:57→21:20)
[2017-04-15] MEDS: CHOLECALCIFEROL (VIT D3) 1000 UNIT TAB PO SCH (08:57)
[2017-04-15] MEDS: QUEtiapine FUMARATE 25 MG TAB PO SCH ×3 (09:00→21:20)
--- NOTE | 2017-04-15 12:49 | HHI.PYPN ---
Subjective Remarks Patient seen for follow up; chart reviewed. Discussion she staff reported the patient had been exit seeking this morning was upset after witnessing another patient getting ETO. Patient was noted to have been agitated at the visit with yesterday and has been compliant with treatment but with encouragement. Patient was found sitting in hospital chair, cooperative. Patient states that he is feeling "okay" mood being good spirits and continues to ask throughout interview where his belongings are that he needs to "get out of this place". Patient denies any perceptual disturbances. Patient had difficulty recalling recent visit with his continue to be alert and oriented only to person. Review of Systems Except as stated in HPI: all other systems reviewed are Neg Mental Status Examination Appearance: Appropriate Consciousness: Alert, Vigilant Orientation: Person Motor Activity: Normal gait Speech: Unremarkable Language: Adequate Fund of Knowledge: Inadequate Attention and Concentration: Adequate Memory: Impaired Mood: Anxious (somewhat) Affect: Appropriate, Anxious Thought Process & Associations: Linear, Other (concrete) Thought Content: Appropriate, Preoccupations (wanting to go home) Hallucination Type: None Delusion Type: None Suicidal Ideation: No Suicidal Plan: No Suicidal Intention: No Homicidal Ideation: No Homicidal Plan: No Homicidal Intention: No Insight: Poor Judgment: Poor Results Labs Labs reviewed Test 04/14/17 22:00 White Blood Count 6.2 TH/MM3 Red Blood Count 4.12 MIL/MM3 Hemoglobin 12.7 GM/DL Hematocrit 37.0 % Mean Corpuscular Volume 89.8 FL Mean Corpuscular Hemoglobin 30.9 PG Mean Corpuscular Hemoglobin Concent 34.4 % Red Cell Distribution Width 13.3 % Platelet Count 168 TH/MM3 Mean Platelet Volume 6.8 FL Neutrophils (%) (Auto) 59.3 % Lymphocytes (%) (Auto) 23.4 % Monocytes (%) (Auto) 9.0 % Eosinophils (%) (Auto) 7.2 % Basophils (%) (Auto) 1.1 % Neutrophils # (Auto) 3.7 TH/MM3 Lymphocytes # (Auto) 1.4 TH/MM3 Monocytes # (Auto) 0.6 TH/MM3 Eosinophils # (Auto) 0.4 TH/MM3 Basophils # (Auto) 0.1 TH/MM3 CBC Comment DIFF FINAL Differential Comment Blood Urea Nitrogen 30 MG/DL Creatinine 1.47 MG/DL Random Glucose 90 MG/DL Total Protein 7.0 GM/DL Albumin 3.4 GM/DL Calcium Level 8.7 MG/DL Phosphorus Level 3.1 MG/DL Magnesium Level 2.0 MG/DL Alkaline Phosphatase 76 U/L Aspartate Amino Transf (AST/SGOT) 17 U/L Alanine Aminotransferase (ALT/SGPT) 30 U/L Total Bilirubin 0.7 MG/DL Sodium Level 141 MEQ/L Potassium Level 3.8 MEQ/L Chloride Level 108 MEQ/L Carbon Dioxide Level 26.9 MEQ/L Anion Gap 6 MEQ/L Estimat Glomerular Filtration Rate 46 ML/MIN Vitals/IOs Vital Signs Date Time Temp Pulse Resp B/P (MAP) Pulse Ox O2 Delivery O2 Flow Rate FiO2 04/15/17 08:45 120/60 (80) 04/15/17 06:19 98.0 84 18 97 Intake and Output 04/15/17 04/15/17 04/16/17 08:00 16:00 00:00 Intake Total 120 ml Balance 120 ml Assessment & Plan Problem List: (1) Alzheimer's dementia with behavioral disturbance ICD Codes: G30.9 - Alzheimer's disease, unspecified; F02.81 - Dementia in other diseases classified elsewhere with behavioral disturbance (2) Dementia in other diseases classified elsewhere with behavioral disturbance ICD Codes: F02.81 - Dementia in other diseases classified elsewhere with behavioral disturbance Assessment & Plan Patient at this time continues to be confused alert and oriented to person only but has not had the behavioral dyscontrol since admission. Patient did have moment of being upset this morning after witnessing outpatient receiving ETO and has been somewhat more exit seeking today. We'll increase quetiapine to 50/ 25/50. Continuous of medications. Continue to monitor mood and behavior. Continue recommendations as per primary medical team. Discharge planning in progress Justification for Cont. Inpt. At risk for further decompensation at lower level care Discharge Planning To be determined Problem Qualifiers (1) Alzheimer's dementia with behavioral disturbance: Qualified Codes: G30.9 - Alzheimer's disease, unspecified; F02.81 - Dementia in other diseases classified elsewhere with behavioral disturbance Roberto Lopez MD Apr 15, 2017 12:49
[2017-04-15 18:00] VITALS: BP 139/69; PULSE 62; RESP 18; TEMP 97.4; O2SAT 99
[2017-04-15] MEDS: ATORVASTATIN 40 MG TAB PO SCH (21:20)
[2017-04-16 05:45] VITALS: BP 108/55; PULSE 85; RESP 18; TEMP 97.5; O2SAT 94
[2017-04-16] MEDS: CHOLECALCIFEROL (VIT D3) 1000 UNIT TAB PO SCH (08:34)
[2017-04-16] MEDS: QUEtiapine FUMARATE 25 MG TAB PO SCH ×3 (08:34→21:22)
[2017-04-16] MEDS: CETIRIZINE HCL 10 MG TAB PO SCH (08:34)
[2017-04-16] MEDS: hydrALAZINE HCL 25 MG TAB PO SCH ×2 (08:35→21:22)
--- NOTE | 2017-04-16 16:55 | HHI.PYPN ---
Subjective Remarks Patient seen for follow-up, chart reviewed. Discussion with nursing staff reported that the patient noted to be exit seeking and compliant with treatment but requires encouragement. Patient found standing near exit doors, calm and cooperative. He states wanting his belongings to go home and continues with confusion as he is oriented only to person. Patient presented to mental health court and was maintained on a continuance. Patient denied any physical complaints, reported mood as being "ok". Denies SI, HI, AVH or delusions. Review of Systems Except as stated in HPI: all other systems reviewed are Neg Mental Status Examination Appearance: Appropriate Consciousness: Alert, Vigilant Orientation: Person Motor Activity: Normal gait Speech: Unremarkable Language: Adequate Fund of Knowledge: Inadequate Attention and Concentration: Adequate Memory: Impaired Mood: Anxious (somewhat) Affect: Anxious Thought Process & Associations: Linear, Other (concrete) Thought Content: Appropriate, Preoccupations (wanting to go home) Hallucination Type: None Delusion Type: None Suicidal Ideation: No Suicidal Plan: No Suicidal Intention: No Homicidal Ideation: No Homicidal Plan: No Homicidal Intention: No Insight: Poor Judgment: Poor Results Vitals/IOs Vital Signs Date Time Temp Pulse Resp B/P (MAP) Pulse Ox O2 Delivery O2 Flow Rate FiO2 04/16/17 05:45 97.5 85 18 108/55 (72) 94 Intake and Output 04/16/17 04/16/17 04/17/17 08:00 16:00 00:00 Intake Total 240 ml Balance 240 ml Assessment & Plan Problem List: (1) Alzheimer's dementia with behavioral disturbance ICD Codes: G30.9 - Alzheimer's disease, unspecified; F02.81 - Dementia in other diseases classified elsewhere with behavioral disturbance (2) Dementia in other diseases classified elsewhere with behavioral disturbance ICD Codes: F02.81 - Dementia in other diseases classified elsewhere with behavioral disturbance Assessment & Plan Patient with no behavioral dyscontrol but noted to be exit seeking; continues to be oriented only to person. Continue current treatment. Monitor mood and behavior. Discharge planning in progress. Justification for Cont. Inpt. At risk for decompensation at lower level of care. Discharge Planning [facility] once one is acquired. Problem Qualifiers (1) Alzheimer's dementia with behavioral disturbance: Qualified Codes: G30.9 - Alzheimer's disease, unspecified; F02.81 - Dementia in other diseases classified elsewhere with behavioral disturbance Roberto Lopez MD Apr 16, 2017 16:55
[2017-04-16 17:46] VITALS: BP 124/64; PULSE 66; RESP 18; TEMP 97.4; O2SAT 95
[2017-04-16] MEDS: ATORVASTATIN 40 MG TAB PO SCH (21:22)
[2017-04-17 05:40] VITALS: BP 107/63; PULSE 80; RESP 20; TEMP 98.1; O2SAT 93
[2017-04-17] MEDS: hydrALAZINE HCL 25 MG TAB PO SCH (09:43)
[2017-04-17] MEDS: CHOLECALCIFEROL (VIT D3) 1000 UNIT TAB PO SCH (09:43)
[2017-04-17] MEDS: CETIRIZINE HCL 10 MG TAB PO SCH (09:43)
[2017-04-17] MEDS: QUEtiapine FUMARATE 25 MG TAB PO SCH ×2 (09:43→14:00)
--- NOTE | 2017-04-17 11:21 | HHI.PYPN ---
Subjective Remarks Patient seen for follow-up, chart reviewed. Discussion she staff reported the patient has not had any behavioral issues, and a compliant with treatment. Patient was found sitting in the room, cooperative. He continues to be alert and oriented only to person, morning perseverative on obtaining his belongings today. Patient reports having feeling "okay" denies any physical complaints, reports sleeping well with no issues with eating or drinking or bowel movement. No SI, HI, AVH or delusions. Review of Systems Except as stated in HPI: all other systems reviewed are Neg Mental Status Examination Appearance: Appropriate Consciousness: Alert, Vigilant Orientation: Person Motor Activity: Normal gait Speech: Unremarkable Language: Adequate Fund of Knowledge: Inadequate Attention and Concentration: Adequate Memory: Impaired Mood: Anxious (somewhat) Affect: Anxious Thought Process & Associations: Linear, Other (concrete) Thought Content: Appropriate, Preoccupations Hallucination Type: None Delusion Type: None Suicidal Ideation: No Suicidal Plan: No Suicidal Intention: No Homicidal Ideation: No Homicidal Plan: No Homicidal Intention: No Insight: Poor Judgment: Poor Results Vitals/IOs Vital Signs Date Time Temp Pulse Resp B/P (MAP) Pulse Ox O2 Delivery O2 Flow Rate FiO2 04/17/17 05:40 98.1 80 20 107/63 (78) 93 Intake and Output 04/17/17 04/17/17 04/17/17 07:59 15:59 23:59 Intake Total 0 ml 120 ml Balance 0 ml 120 ml Assessment & Plan Problem List: (1) Alzheimer's dementia with behavioral disturbance ICD Codes: G30.9 - Alzheimer's disease, unspecified; F02.81 - Dementia in other diseases classified elsewhere with behavioral disturbance (2) Dementia in other diseases classified elsewhere with behavioral disturbance ICD Codes: F02.81 - Dementia in other diseases classified elsewhere with behavioral disturbance Assessment & Plan Patient at this time has not had any behavioral disturbances or dyscontrol since admission, was noted to be exit seeking yesterday but not today. Patient compliant with medications and treatment. Continue medical physicians her primary medical team. Continue to monitor mood and behavior. Discharge planning in progress Justification for Cont. Inpt. At risk for further decompensation if at lower level of care Discharge Planning He shouldn't to be discharged to a nursing facility once one is required Problem Qualifiers (1) Alzheimer's dementia with behavioral disturbance: Qualified Codes: G30.9 - Alzheimer's disease, unspecified; F02.81 - Dementia in other diseases classified elsewhere with behavioral disturbance Roberto Lopez MD Apr 17, 2017 11:21
[2017-04-17] MEDS ORDERED: HYDR-3799 PO (14:07)
[2017-04-17] MEDS ORDERED: SERO25TA PO ×2 (14:07)
--- NOTE | 2017-04-18 20:46 | HHI.DS ---
Psychiatry Discharge Summary Inpatient Psychiatric care?: Yes Advance Directive: No Reason Not Provided: Due to Patient Condition Mental Health AdvanceDirective: No Health Care Proxy: No Admission Admission Date Apr 09, 2017 at 21:03 Admission Diagnosis: (1) Alzheimer's dementia with behavioral disturbance ICD Code: G30.9 - Alzheimer's disease, unspecified; F02.81 - Dementia in other diseases classified elsewhere with behavioral disturbance (2) Dementia in other diseases classified elsewhere with behavioral disturbance ICD Code: F02.81 - Dementia in other diseases classified elsewhere with behavioral disturbance Brief History Pt seen and discussed with staff. [place] [facility] [place] Staff state that pt has been confused and was agitated yesterday. He has been calm today but remains confused. He is guarded in interview and interacts minimally. No SI/HI . Past psychiatric history: dementia, prior admission, no prior SA Substance use history: denies Past medical history: CAD, PA Allergies: sulfas, codeine, penicillin G Social history: , domiciled with , unemployed on SSI Tobacco Use In Past 30 Days: No Tobacco Past 30 Days Alcohol Use: Never Hospital Course Patient is a 81 y/o [place] man, , unemployed with past psychiatric history of Alzheimer dementia, prior psychiatric admissions, no prior suicide attempt who was brought in under BA after patient became agitated when brought him to the airport and was aggressive when he was told there was no money to buy a ticket in the context of noncompliance to medications which he was admitted to the psychiatry unit for further evaluation and management. Patient started on quetiapine and titrated up to 50/25/50mg which patient tolerated well and noted to be calm and cooperative with staff. Patient was observed to have confusion at baseline secondary to neurocognitive deficits with poor immediate and recall memory, alert and oriented only to person. Patient was noted to have been compliant with treatment with encouragement, noted to be exit seeking at times but cooperative with staff. Upon discharge patient stated that she was feeling good, denied any psychotic symptoms, denied any SI, HI or delusions. Patient agreed to continue medication regimen and outpatient follow up for continuity of care. I have counseled the patient regarding warning signs for need to return to the psychiatric emergency room as part of a general safety plan. Patient advised to call 911 or go nearest ED in case of emergency. Patient agrees with plan. Results Blood Pressure 107 / 63 Vital Signs Date Time Temp Pulse Resp B/P (MAP) Pulse Ox O2 Delivery O2 Flow Rate FiO2 04/17/17 05:40 98.1 80 20 107/63 (78) 93 Laboratory Results Test 04/11/17 09:20 Cholesterol Level 149 MG/DL (120-200) HDL Cholesterol 34.6 MG/DL (40.0-60.0) Hemoglobin A1c 5.1 % (4.3-6.0) LDL Cholesterol 92 MG/DL (0-99) Triglycerides Level 114 MG/DL (42-150) Summary of Procedures none Pending results at discharge: No Medications # of Antipsychotic meds at D/C: 1 Approp Antipsych med options 1 - Minimum of three failed multiple trials of monotherapy. 2 - Documented plan to taper to monotherapy due to previous use of multiple meds OR cross-taper in progress at D/C. 3 - Documentation of augmentation of Clozapine. 4 - Justification other than those listed in allowable values 1-3, document here : Discharge Discharge Date: Apr 17, 2017 Discharge Diagnosis: (1) Alzheimer's dementia with behavioral disturbance ICD Code: G30.9 - Alzheimer's disease, unspecified; F02.81 - Dementia in other diseases classified elsewhere with behavioral disturbance (2) Dementia in other diseases classified elsewhere with behavioral disturbance ICD Code: F02.81 - Dementia in other diseases classified elsewhere with behavioral disturbance Pt Condition on Discharge: Stable Discharge Disposition: Discharge to SNF Discharge Instructions Diet Instructions: As Tolerated, No Restrictions Activities you can perform: Regular-No Restrictions Appointment Date: Apr 17, 2017 Discharge Time > 30 minutes Mental Status Examination Appearance: Appropriate Consciousness: Alert, Vigilant Orientation: Person Motor Activity: Normal gait Speech: Unremarkable Language: Adequate Fund of Knowledge: Inadequate Attention and Concentration: Adequate Memory: Impaired Mood: Appropriate Affect: Appropriate Thought Process & Associations: Linear Thought Content: Appropriate Hallucination Type: None Delusion Type: None Suicidal Ideation: No Suicidal Plan: No Suicidal Intention: No Homicidal Ideation: No Homicidal Plan: No Homicidal Intention: No Insight: Poor Judgment: Poor Discharge/Advance Care Plan Health Problems: (1) Alzheimer's dementia with behavioral disturbance (2) Dementia in other diseases classified elsewhere with behavioral disturbance Goals to promote your health * To prevent worsening of your condition and complications * To maintain your health at the optimal level Directions to meet your goals Take your medications as prescribed Follow your dietary instruction Follow activity as directed Keep your appointments as scheduled Take your immunizations and boosters as scheduled If your symptoms worsen call your PCP, if no PCP go to Urgent Care Center or Emergency Room For 20/10 questions related to your inpatient stay or results of tests pending at discharge, please contact Dr. Roberto Lopez at Smoking is Dangerous to Your Health. Avoid second hand smoking Problem Qualifiers (1) Alzheimer's dementia with behavioral disturbance: Qualified Codes: G30.9 - Alzheimer's disease, unspecified; F02.81 - Dementia in other diseases classified elsewhere with behavioral disturbance Roberto Lopez MD Apr 18, 2017 20:46
== END 2017-04-17 16:25 | DRG 57 ==
LOC: NEPD 12:21 → NEDA 21:03 → H260 22:02 → H250 04-12 16:44
PROVIDERS: ADMIT Student in an Organized Health Care Education/Training Program; ATTEND Student in an Organized Health Care Education/Training Program
DX: G30.9 Alzheimer's disease, unspecified (principal); F02.81 Dementia in other diseases classified elsewhere, unspecified severity, with behavioral disturbance; Z91.14 Patient's other noncompliance with medication regimen; I25.10 Atherosclerotic heart disease of native coronary artery without angina pectoris; I25.2 Old myocardial infarction; R03.0 Elevated blood-pressure reading, without diagnosis of hypertension; N18.9 Chronic kidney disease, unspecified; E78.5 Hyperlipidemia, unspecified; H91.90 Unspecified hearing loss, unspecified ear
CPT/HCPCS: 80048; 80053; 80061; 80307; 81001; 83036; 83735; 84100; 84443; 85025; 99285